=== PATIENT | male | born 1960 | race Caucasian/White ===

== ENCOUNTER → 2017-01-21 | Outpatient (CLI) | payer BC ==
[~2017-01-21] MED LIST: CETI10TA84 PO; IBUP-1050 PO; SNG10 PO; SYMIN160 INH
== END | disposition home or self-care (01) ==
LOC: C.RDSM 10:44
PROVIDERS: ATTEND Family Medicine
DX: M25.561 Pain in right knee (principal)

== ENCOUNTER → 2017-01-28 | Outpatient (CLI) | payer BC ==
--- NOTE | 2017-01-28 09:43 | DIAGNOSTIC IMAGING REPORT ---
ABDOMEN AND PELVIS CT WITHOUT CONTRAST CT DOSE: 1098.14 mGycm HISTORY: Pain ABD PAIN, S/P COLON SURGERY, HX DIVERTICULITIS TECHNIQUE: Multiaxial CT images of the abdomen and pelvis were performed without contrast. COMPARISON STUDY: 06/26/2016 FINDINGS: Lung bases remain clear. The small hypodensity in the right hepatic lobe is stable. Prior cholecystectomy. Pancreas and spleen are within normal limits. The adrenal glands are normal. Kidneys negative for calcification or hydronephrosis. Findings of an ostomy involving the mid transverse colonic region are again noted. This shows no evidence for obstructive change. There is a mid sigmoid anastomosis unchanged as well. There is no evidence for abscess collection or obstruction. There is no significant bowel wall thickening within limitations of an unenhanced scan. IMPRESSION: Stable postoperative change . No acute process. No evidence for obstructive change, mass, or collection. Electronically signed by: Sourav Olivares M.D. 01/28/2017 9:41 AM Dictated Date/Time: 01/28/2017 9:32 AM
== END | disposition home or self-care (01) ==
LOC: C.CTS 09:14
PROVIDERS: ATTEND Colon & Rectal Surgery
DX: Z87.19 Personal history of other diseases of the digestive system (principal); Z90.49 Acquired absence of other specified parts of digestive tract; R10.9 Unspecified abdominal pain

== ENCOUNTER 2019-02-15 17:59 | Inpatient (IN) ==
--- OUTSIDE RECORDS SUMMARY | 2019-02-15 18:03 | External Medical Summary | Continuity of Care Document ---
:1960 Author Name Stella Kimble, Provider Address Unavailable Unavailable , Care Team Providers Name Role Phone CharleyG Shyanne, Provider Unavailable [email or web address] [email or web address] Lopez M.D. Unavailable [email or web address] Case Chris KIRAN Unavailable [email or web address] Milagros HARTMAN Unavailable Unavailable Unavailable Unavailable Unavailable Problems Diverticulitis of colon (562.11) (K57.32) Open wound of face (873.40) (S01.80XA) Cough (786.2) (R05) Allergic rhinitis due to cats (477.2) (J30.81) Allergic rhinitis due to dust (477.8) (J30.89) Allergic rhinitis due to pollen (477.0) (J30.1) Chronic sinusitis (473.9) (J32.9) Extrinsic asthma (493.00) (J45.909) Diverticulosis (562.10) (K57.90) Allergies and Adverse Reactions Augmentin TABS (Allergy) Reaction: Nause a Vicodin HP TABS (Allergy) Medications ProAir HFA 108 (90 Base) MCG/ACT Inhalat ion Aerosol Solution; INHALE 1 TO 2 PUFFS EVERY 4 TO 6 HOURS NEEDED. Shyanne Pagan Start: 20-Jul-2011 Quantity: 1 Refills: 5 Suprep Bowel Prep Kit 17.5-3.13-1.6 GM/1 77ML Oral Solution; DILUTE CONTENTS AND USE DIRECTED FOR BOWEL PREP CaseDO Travon Start: 27-Mar-2016 Quantity: 1 177 ML Bottle (2 Bot tles) Refills: 0 Montelukast Sodium 10 MG Oral Tablet; TAKE 1 TABLET AT BEDTIME. Shyanne Pagan Start: 19-Aug-2011 Quantity: 90 Refills: 3 Symbicort 160-4.5 MCG/ACT Inhalation Aer osol; INHALE 2 PUFFS Twice daily PRN asthmatic exacerbation Shyanne Pagan Start: 05-Aug-2011 Quantity: 1 10.2 GM Inhaler Refills: 11 Cetirizine HCl - 10 MG Oral Tablet; TAKE 1 TABLET MARY Y NEEDED. Shyanne Pagan Quantity: 90 Refills: 3 Procedures History of Spinal Diskectomy Lumbar Stat us: Completed History of Sinus Surgery Status: Complet ed History of Cholecystectomy Laparoscopic Status: Completed History of Blepharoplasty Upper Lid W/ Excessive Skin Status: Completed Immunizations Immunizations not documented Family History Father Family history of Leukemia (V16.6) Status: Active Brother Family history of Type 2 Diabetes Mellitus Status: Active Family history of Hypertension (V17.49) Status: Active Social History - Smoking Status Never smoker Plan of Treatment Planned Observations Planned Goals not documented Results No Known Results Results not documented
[2019-02-15] MEDS ORDERED: SODIUM CHLORIDE 0.9% 1000ML 1,000 ML IV SCH (18:15)
[2019-02-15 18:33] LABS: Basophils # (auto) 0.07 K/uL (0-0.2); Basophils % (auto) 0.9 %; Eosinophils # (auto) 0.19 K/uL (0-0.5); Eosinophils % (auto) 2.5 %; Hematocrit (blood only) 44.1 % (42-52); Hemoglobin 15.7 g/dL (14.0-18.0); Immature Granulocytes # (auto) 0.02 K/uL (0.00-0.02); Immature Granulocytes % (auto) 0.3 %; Lymphocytes # (auto) 1.55 K/uL (1.2-3.4); Lymphocytes % (auto) 20.8 %; Mean Corpuscular Hgb Conc 35.6 g/dL (32-36); Mean Corpuscular Volume 90.2 fL (80-100); Monocytes # (auto) 0.63 K/uL (0.11-0.59); Monocytes % (auto) 8.4 %; Neutrophils % (auto) 67.1 %; Platelet Count 220 K/uL (130-400); RDW Coefficient of Variation 13.4 % (11.5-14.5); RDW Standard Deviation 44.5 fL (36.4-46.3); Red Blood Count 4.89 M/uL (4.7-6.1); White Blood Count 7.46 K/uL (4.8-10.8)
[2019-02-15] MEDS ORDERED: OPTIRAY 320 125ml IV PRN (18:35)
--- NOTE | 2019-02-15 18:38 | CT Scan Report ---
CT OF THE HEAD WITHOUT CONTRAST CLINICAL HISTORY: Stroke evaluation. Right-sided weakness. COMPARISON STUDY: No previous studies for comparison. CT DOSE: 638.56 mGycm TECHNIQUE: Helical axial images of the head were obtained without IV contrast. Automated exposure con trol was utilized for the study. A dose lowering technique was utilized adhering to the principles o f ALARA. FINDINGS: No acute intracranial hemorrhage, midline shift or mass effect is present. Ventricular syst em is normal. Basilar cisterns are patent. There are no extra-axial collections. [place]-white different iation is maintained. There are no findings to suggest acute dural sinus thrombosis or acute territor ial infarct. There are no significant calvarial abnormalities. IMPRESSION: No acute intracranial findings. Electronically signed by: Arnol Flores M.D. 02/15/2019 6:36 PM
[2019-02-15 18:41] LABS: iSTAT Creatinine 1.1 mg/dl (0.6-1.3); iSTAT Hemoglobin 15.3 g/dl (14.0-18.0); iSTAT Ionized Calcium 1.11 mmol/l (1.12-1.32); iSTAT Potassium 4.1 mEq/L (3.3-5.0)
[2019-02-15 18:43] LABS: Partial Thromboplastin Time 28.1 Seconds (21.0-31.0); Prothrombin Time 10.3 Seconds (9.0-12.0)
[2019-02-15 18:49] LABS: Alanine Aminotransferase 44 U/L (12-78); Albumin Level 3.6 gm/dl (3.4-5.0); Aspartate Aminotransferase 34 U/L (15-37); BUN Creatinine Ratio 16.9 (10-20); Blood Urea Nitrogen 18 mg/dl (7-18); Calcium 8.6 mg/dl (8.5-10.1); Carbon Dioxide 27 mmol/L (21-32); Chloride 109 mmol/L (98-107); Est GFR (African American) 92.6; Est GFR (Non-African American) 79.9; Glucose 91 mg/dl (70-99); Magnesium 2.3 mg/dl (1.8-2.4); Potassium 4.1 mmol/L (3.5-5.1); Sodium 141 mmol/L (136-145)
--- NOTE | 2019-02-15 18:50 | CT Scan Report ---
HEAD & NECK CTA HISTORY: right face, arm numbness TECHNIQUE: Multiaxial CT images of the head were performed following the intravenous administration o f contrast to evaluate the major cerebral vessels. Multiaxial CT images of the neck were also perform ed following the intravenous administration of contrast to evaluate the major cervical vessels. Maxim um intensity projection images were also obtained. A dose lowering technique was utilized adhering to the principles of ALARA. COMPARISON: Head CT 02/15/2019. FINDINGS: There is no mass, hematoma, midline shift, or acute infarct. Visualized intracranial internal carotid arteries, distal vertebral arteries, and basilar artery are widely patent. There is no significant s tenosis, occlusion, or aneurysm seen within the bilateral ACAs, MCAs, or malt house supervisor. The major dural venous sinuses are patent. The aortic arch and proximal great vessels are widely patent. There is no significant stenosis, occ lusion, or dissection identified within the bilateral common carotid, internal carotid, or vertebral arteries. Patchy ground glass densities and interlobular septal thickening within the lung apices fav ors mild pulmonary edema. A 7 mm right thyroid nodule is noted. IMPRESSION: 1. No significant stenosis, occlusion, or aneurysm within the [place]. 2. No significant stenosis, occlusion, or dissection identified within the carotid or vertebral arter ies. 3. Mild pulmonary edema. Electronically signed by: Elvis Yu M.D. 02/15/2019 6:49 PM
--- NOTE | 2019-02-15 18:50 | CT Scan Report ---
HEAD & NECK CTA HISTORY: right face, arm numbness TECHNIQUE: Multiaxial CT images of the head were performed following the intravenous administration o f contrast to evaluate the major cerebral vessels. Multiaxial CT images of the neck were also perform ed following the intravenous administration of contrast to evaluate the major cervical vessels. Maxim um intensity projection images were also obtained. A dose lowering technique was utilized adhering to the principles of ALARA. COMPARISON: Head CT 02/15/2019. FINDINGS: There is no mass, hematoma, midline shift, or acute infarct. Visualized intracranial internal carotid arteries, distal vertebral arteries, and basilar artery are widely patent. There is no significant s tenosis, occlusion, or aneurysm seen within the bilateral ACAs, MCAs, or technical instructor. The major dural venous sinuses are patent. The aortic arch and proximal great vessels are widely patent. There is no significant stenosis, occ lusion, or dissection identified within the bilateral common carotid, internal carotid, or vertebral arteries. Patchy ground glass densities and interlobular septal thickening within the lung apices fav ors mild pulmonary edema. A 7 mm right thyroid nodule is noted. IMPRESSION: 1. No significant stenosis, occlusion, or aneurysm within the [place]. 2. No significant stenosis, occlusion, or dissection identified within the carotid or vertebral arter ies. 3. Mild pulmonary edema. Electronically signed by: Elvis Yu M.D. 02/15/2019 6:49 PM
[2019-02-15 18:54] LABS: Albumin Globulin Ratio 0.9 (0.9-2); Alkaline Phosphatase 67 U/L (45-117); Bilirubin,Total 0.4 mg/dl (0.2-1); Globulin 3.9 gm/dl (2.5-4.0); Total Protein 7.5 gm/dl (6.4-8.2); Troponin I < 0.015 ng/ml (0-0.045)
[2019-02-15] MEDS ORDERED: ASPIRIN CHEW 324 MG PO STA (19:22)
--- NOTE | 2019-02-15 19:25 | XRay Report ---
XR chest 1V portable HISTORY: Right-sided numbness. COMPARISON: Chest 01/31/2016. FINDINGS: No pneumothorax. No pleural effusions. The lungs are clear. The heart is top normal in size . IMPRESSION: No acute process. Electronically signed by: Elvis Yu M.D. 02/15/2019 7:24 PM
[2019-02-15 19:51] LABS: Appearance Urine Cloudy (Clear); Bacteria Urine Automated Negative (Negative); Bilirubin Urine Negative (Negative); Blood Urine Negative (Negative); Cast Urine Automated 0 /lpf (0-5); Color Urine Yellow; Epithelial Cell Urine Auto 0-5 /lpf (0-5); Glucose Urine UA Negative (Negative); Ketones Urine Negative (Negative); Leukocyte Esterase Urine Negative (Negative); Nitrite Urine Negative (Negative); Protein Urine Negative (Negative); RBC Urine Automated 0-4 /hpf (0-4); Specific Gravity Urine 1.037 (1.000-1.030); Urobilinogen Urine Negative (Negative); WBC Urine Automated 0 /hpf (0-5); pH Urine 7.5 (4.5-7.5)
--- NOTE | 2019-02-15 20:34 | History & Physical Report ---
Date of Service February 15, 2019 Assessment & Plan (1) Stroke-like symptom: 58 yo male with no significant PMH presents with stroke-like symptoms. Symptoms included dysarthria, right facial droop, right facial numbness, right arm numbness. He states that the symptoms began today at 4:45 while at physical therapy. He describes laying on his right side and states that he began to feel very poor. At that moment, his words became slurred and he felt changes of sensation in his right arm and right face. The symptoms were witnessed by the therapist and states that they lasted 30 seconds to a minute. On arrival to the ED, speech and facial droop had resolved, but he still expressed tingling of right face. He denies visual, gait, or other focal neuro deficits. No PMH of CAD, HTN, HLD, DM or smoking. His mother had a history of TIA and CVA. Stroke-like symptoms, TIA - Considering no significant risk factor, but positive family history will order hypercoagulable panel - Neruology consulted - CTA neck and head negative - Ordered lipid panel, HgA1C - Ordered MRI - Aspirin added Sciatic Sx - Continue gabapentin 400 mg TID Asthma - Continue symbicort, montelukast, albuterol DVT ppx - SCD's Diet - Heart healthy Code -Full code (2) Right facial numbness: (3) Dysarthria: (4) Right arm numbness: (5) Asthma: (6) History of diverticulitis: (7) History of bowel resection: History of Present Illness Primary Care Provider: Chavez Morrison MD 58 yo male with no significant PMH presents with stroke-like symptoms. Symptoms included dysarthria, right facial droop, right facial numbness, right arm numbness. He states that the symptoms began today at 4:45 while at physical therapy. He describes laying on his right side and states that he began to feel very poor. At that moment, his words became slurred and he felt changes of sensation in his right arm and right face. The symptoms were witnessed by the therapist and states that they lasted 30 seconds to a minute. On arrival to the ED, speech and facial droop had resolved, but he still expressed sensation issues of the face. He denies visual, gait, or other focal neuro deficits. No PMH of CAD, HTN, HLD, DM or smoking. His mother had a history of TIA and CVA. Review of sx; Const; no fevers, no chills, no night sweats HEENT; denies sore throat, describes having a headache, denies runny nose Chest; denies chest pain, denies palpitations, denies SOB and lower extremity swelling Abdomen; denies ab pain, n/v/d Allergies Allergy/AdvReac Type Severity Reaction Status Date / Time amoxicillin Allergy Intermediate RASH,TOLERATED Verified 02/15/19 19:48 ZOSYN 01/22/16 ADM. clavulanic acid Allergy Intermediate RASH Verified 02/15/19 19:48 hydrocodone Allergy Mild DIZZY, Verified 02/15/19 19:48 NAUSEA Home Medications Home Medications Medication Instructions Recorded Confirmed Type Zyrtec 10 mg PO QAM 07/19/18 02/15/19 History calcium carbonate-vitamin D3 1 tab PO BID 07/19/18 02/15/19 History [Calcium 500 + D] ibuprofen [Advil] 600 mg PO QID PRN 07/19/18 02/15/19 History Symbicort 2 puff INHALATION BID 02/15/19 02/15/19 History albuterol sulfate 2 puff INHALATION QID PRN 02/15/19 02/15/19 History gabapentin [Neurontin] 400 mg PO TID 02/15/19 02/15/19 History montelukast [Singulair] 10 mg PO HS 02/15/19 02/15/19 History aspirin 81 mg PO DAILY #30 tab 02/16/19 Rx Past Med/Surg History Medical History Asthma Diverticulitis Environmental allergies IBS (irritable bowel syndrome) Surgical History History of bowel resection WITH COLOSTOMY/REVERSAL History of cholecystectomy History of colonoscopy History of colostomy reversal History of discectomy LUMBAR History of endoscopic sinus surgery History of tooth extraction Strabismus REPAIRED Family History Brother Family history of diabetes mellitus Other TIA (transient ischemic attack) Social History Preferred Language: Spanish Communication Ability: Effective Rate Reviewer Required: No Beliefs That Will Affect Care: None marital status: Current Living Situation: Spouse Other Information That Helps Us Care for You: No Feels Safe at Home: Yes Safety Concerns: Feels Safe At This Time Smoking Status: Never smoker Second Hand Exposure: No Hx Alcohol Use: No Hx Substance Use: No Review of Systems Review of Systems: All systems reviewed & are unremarkable except as noted in HPI & below Physical Exam Constitutional: WD/WN, vitals as above Eyes: PERRL, conjunctivae normal, anicteric sclerae ENMT: external ear and nose normal, oropharynx normal Neck: trachea midline, no thyromegaly Respiratory: normal respiratory effort, lungs clear to auscultation Cardiovascular: RRR, no murmur, no edema Gastrointestinal (Abdomen): normal bowel sounds, soft, nontender, no hepatosplenomegaly Musculoskeletal: no cyanosis or clubbing, extremities motor strength 5/5 Skin: no rashes, warm and dry Neurologic: PERRL, EOMI, accommodation nl, no face palsy, no dysarthria CN's II-XI intact bilaterally and awake; not obtunded Speech / Cognition: no expressive aphasia Psychiatric: A+Ox3, euthymic affect Results & Data Vital Signs (Past 12 Hours) Vital Signs Temp Pulse Resp BP Pulse Ox 02/15/19 20:01 66 19 108/71 95 02/15/19 19:39 63 25 H 129/86 96 02/15/19 19:01 69 26 H 136/85 94 02/15/19 18:56 67 23 131/78 94 02/15/19 18:07 36.9 C 68 20 151/97 H 96 Code Status & VTE Plan Code Status full VTE Prophylaxis Plan VTE Prophylaxis will be ordered: Yes Supervising Physician Co-Signing Physician Notes Attending addendum: I have physically seen this patient, have supervised the medical residents activities, and agree with the H&P unless as otherwise noted. Assessment and Plan: TIA/strokelike symptoms- The patient will be admitted to telemetry for serial cardiac enzymes, serial E KG's, cardiac rhythm monitoring and a 2-D echocardiogram with Dopplers.. CT head negative. CTA head and neck negative. Hypercoagulable work-up. Continue aspirin 81 mg daily. MRI brain without contrast. Ischemic stroke without TPA protocol order set. Consult neurology. Remainder of orders notations as noted. Resident Activity Tracking Resident Involvement: Resident Care Provided Care Provided: Adult [facility]
[2019-02-15] MEDS ORDERED: PHARMACIST DISCHARGE MED REC CONSULT PRN (20:37)
[2019-02-15] MEDS ORDERED: ALBUTEROL HFA 8 GM INHALER INH PRN (20:43)
[2019-02-15] MEDS ORDERED: MONTELUKAST SODIUM 10 MG TABLET PO SCH (21:00)
--- NOTE | 2019-02-15 21:41 | XRay Report ---
ORBIT RADIOGRAPHS 3 VIEWS HISTORY: pre-MRI screening. COMPARISON: Orbits 07/01/2018. FINDINGS: There are no radiopaque foreign bodies identified within the orbits. IMPRESSION: No radiopaque foreign bodies identified within the orbits. Electronically signed by: Elvis Yu M.D. 02/15/2019 9:39 PM
[2019-02-15] MEDS ORDERED: GADOBUTROL 65ML VIAL IV PRN (22:05)
--- NOTE | 2019-02-15 22:27 | Magnetic Resonance Report ---
Brain MRI WITH AND WITHOUT CONTRAST HISTORY: Right-sided numbness. Difficulty speaking. CVA symtpoms TECHNIQUE: Multiplanar multisequence MRI of the brain was performed both before and after the intrave nous administration of contrast. COMPARISON STUDY: Head CT 02/15/2019. FINDINGS: There are no areas of restricted diffusion to suggest acute infarction. The midline structu res are intact. The paranasal sinuses are clear. The mastoid air cells are clear. The ventricles and sulci are within normal limits for age. There is no mass, hematoma, midline shift. The major vascular flow-voids at the skull base are well maintained. Postcontrast sequences show no areas of abnormal e nhancement. IMPRESSION: No acute intracranial abnormality. Electronically signed by: Elvis Yu M.D. 02/15/2019 10:26 PM
--- NOTE | 2019-02-15 22:44 | Emergency Department Note ---
Entered by Vy Loja acting as a scribe for ED Provider Note CHIEF COMPLAINT: Stroke symptoms. HISTORY OF PRESENT ILLNESS: The patient is a 58 year old male who presents to the Emergency Room with c omplaints of an episode of stoke symptoms. The patient's last known well time was 1700. He presents with his and physical therapist. The patient states that he was in physical therapy when he developed right arm numbness, right facial numbness, and difficulty talking. The patient describes his speech as garbled. Per physical therapist, he said that he didnt feel good and needed to relax. He notes that it lasted between 30 seconds to one minute. He reports that he still has some right arm numbness and a headache. The patient states that he has a family history of TIA. Pt denies LOC, , fevers, chills, diaphoresis, visual changes, neck pain, chest pain, breathing difficulties, nausea, vomiting, abdominal pain, back pain, melena, hematochezia, urinary symptoms, lymphadenopathy, rash, or other complaints. REVIEW OF SYSTEMS: See HPI for pertinent positives and negatives. A total of ten systems were reviewed and were otherwise negative. PMHx/PSHx: IBS, asthma, diverticulitis, discectomy, cholecystectomy, and bowel resection. SOCIAL HISTORY: Patient lives at home. PHYSICAL EXAM: GENERAL: Awake, alert, well-appearing, in no distress HENT: Normocephalic, atraumatic. Oropharynx unremarkable. EYES: PERRL. Normal conjunctiva. Sclera non-icteric. NECK: Inspection normal. Non-tender. Supple. No nuchal rigidity. FROM. No masses. RESPIRATORY: Clear to auscultation. No wheezes. No rales. Normal respiratory effort. CARDIAC: Normal rate. Normal rhythm. No murmurs. No rubs. Extremities warm and well perfused. Pulses equal. No JVD. GI: Soft, non-distended. No tenderness to palpation. No rebound or guarding. No masses. RECTAL: Deferred. MUSCULOSKELETAL: Atraumatic. Chest examination reveals no tenderness. The back is symmetrical on inspection without obvious abnormality. There is no CVA tenderness to palpation. No joint edema. LOWER EXTREMITIES: Calves are equal size bilaterally and non-tender. No edema. No discoloration. NEURO: Normal sensorium. Right face and right arm subjective numbness, otherwise no sensory or motor deficits noted. No drift, speech is clear. Cranial nerves II through XII intact otherwise. No problem SKIN: No rash or jaundice noted. EMERGENCY DEPARTMENT COURSE: 1804: Past medical records reviewed. The patient was evaluated in room A11B, and a complete history and physical examination were performed. 1813: Dr. Gaby Cordero [facility] was paged. She is going to log on. 1834: I reviewed the patient's scans with Dr. Flores - Radiology. He has a negative head CT. 1841: I have re-evaluated the patient. He is stable. I updated him on the results of the CT scan and he was brought back to the ER for TeleStroke evaluation. 1899: I reviewed the patient's case with Dr. Gaby Cordero [facility] - [facility] . She states that there is no need for TPA and he needs a medical admission for stroke work up. 1901: I updated the patient on the results of his scans. 1912: I reviewed the patient's case with Dr. Loc Cortes Hospitalist - [facility]. He will evaluate the patient for further management. MEDICAL DECISION MAKING: Nursing notes reviewed and agree them. Additional history obtained from his family as well as the physician web marketing assistant at orthopedics who saw him at the time of event. The patient's history was concerning for weakness. Differential diagnosis: Etiologies such as TIA/CVA, metabolic, infection, hypo/hyperglycemia, electrolyte abnormalities, cardiac sources, intracerebral event, toxicologic, neurologic, as well as others were entertained. Physical examination: As above. ER treatment provided: IV [place] hydration Monitoring Oral aspirin On reassessment the patient felt better. Diagnostics interpretation by me: ECG: Normal sinus The labs revealed an unremarkable CBC and chemistry panel. Imaging studies: CT scan of the head and CT under [place] of the head and neck were performed. No acute findings noted. Consultation: Consultation was placed with Al[facility] salvadorstroke, Dr. Cordero. The case was discussed. She evaluated the patient via the tele-stroke unit and felt that the patient was doing exceptionally well at this time. She was concerned about a neurologic event. TPA was not recommended. Aspirin and monitoring was rec ommended. The patient had this performed. A consultation was placed with the hospitalist. The case was discussed and diagnostics were reviewed. The patient was evaluated in the ER for further treatment. IMPRESSION: Stroke like symptoms, right face numbness, right arm numbness, dysarthria. PLAN: Admitted. The scribe's documentation has been prepared under my direction and personally reviewed by me in its entirety. I confirm that the note above accurately reflects all work, treatment, procedures, and medical decision making performed by me. Impression & Plan Stroke-like symptom, Right facial numbness, Right arm numbness, Dysarthria Past Med/Surg History Medical History Asthma Diverticulitis Environmental allergies IBS (irritable bowel syndrome) Surgical History History of bowel resection WITH COLOSTOMY/REVERSAL History of cholecystectomy History of colonoscopy History of colostomy reversal History of discectomy LUMBAR History of endoscopic sinus surgery History of tooth extraction Strabismus REPAIRED Family History Brother Family history of diabetes mellitus Other TIA (transient ischemic attack) Social History Preferred Language: Portuguese Communication Ability: Effective Workers' Compensation Claims Supervisor Required: No Beliefs That Will Affect Care: None Current Living Situation: Spouse Other Information That Helps Us Care for You: No Feels Safe at Home: Yes Safety Concerns: Feels Safe At This Time Smoking Status: Never smoker Second Hand Exposure: No Hx Alcohol Use: No Hx Substance Use: No Results & Data Vital Signs Vital Signs - 24 hr 02/15/19 18:07 02/15/19 18:56 02/15/19 19:01 Temperature 36.9 C Temperature Source Oral Sepsis Recent Fever Within 48 Hours No Sepsis Action Taken by Nursing No Action Required Pulse Rate 68 67 69 Pulse Rate from SpO2 Sensor 67 68 Respiratory Rate 20 23 26 H Blood Pressure 151/97 H 131/78 136/85 Blood Pressure Mean 115 95 102 Pulse Oximetry 96 94 94 Oxygen Delivery Method Room Air Room Air 02/15/19 19:39 Temperature Temperature Source Sepsis Recent Fever Within 48 Hours Sepsis Action Taken by Nursing Pulse Rate 63 Pulse Rate from SpO2 Sensor 63 Respiratory Rate 25 H Blood Pressure 129/86 Blood Pressure Mean 100 Pulse Oximetry 96 Oxygen Delivery Method Room Air Home Medications Current Medication List: was personally reviewed by me Laboratory Data Attestation: I reviewed the patient's lab results. Result diagrams: 02/15/19 18:22 02/15/19 18:22 Lab Results 02/15/19 02/15/19 02/15/19 Range/Units 17:41 18:22 18:22 WBC 7.46 (4.8-10.8) K/uL RBC 4.89 (4.7-6.1) M/uL Hgb 15.7 (14.0-18.0) g/dL POC Hgb (14.0-18.0) g/dl Hct 44.1 (42-52) % POC Hct (42-52) % MCV 90.2 (80-100) fL MCH 32.1 (25-34) pg MCHC 35.6 (32-36) g/dL RDW Std Deviation 44.5 (36.4-46.3) fL RDW Coeff of Violeta 13.4 (11.5-14.5) % Plt Count 220 (130-400) K/uL MPV 9.0 (7.4-10.4) fL Immature Gran % (Auto) 0.3 % Neut % (Auto) 67.1 % Lymph % (Auto) 20.8 % [place] % (Auto) 8.4 % Eos % (Auto) 2.5 % Baso % (Auto) 0.9 % Immature Gran # (Auto) 0.02 (0.00-0.02) K/uL Neut # (Auto) 5.00 (1.4-6.5) K/uL Lymph # (Auto) 1.55 (1.2-3.4) K/uL [place] # (Auto) 0.63 H (0.11-0.59) K/uL Eos # (Auto) 0.19 (0-0.5) K/uL Baso # (Auto) 0.07 (0-0.2) K/uL PT 10.3 (9.0-12.0) Seconds INR 1.0 (0.9-1.1) APTT 28.1 (21.0-31.0) Seconds PTT Ratio 1.0 POC Sodium (135-144) mEq/L Sodium (136-145) mmol/L POC Potassium (3.3-5.0) mEq/L Potassium (3.5-5.1) mmol/L POC Chloride (101-112) mEq/L Chloride (98-107) mmol/L Carbon Dioxide (21-32) mmol/L POC Total CO2 (24-31) mEq/l Anion Gap (3-11) POC Anion Gap (16-25) mmol/L POC BUN (7-18) mg/dl BUN (7-18) mg/dl Creatinine (0.6-1.4) mg/dl POC Creatinine (0.6-1.3) mg/dl Est Cr Clr Drug Dosing ml/min Est GFR ( Amer) Est GFR (Non-Af Amer) BUN/Creatinine Ratio (10-20) Glucose (70-99) mg/dl POC Glucose (other) (70-99) mg/dl Calcium (8.5-10.1) mg/dl POC Ioniz Calcium Henry (1.12-1.32) mmol/l Magnesium (1.8-2.4) mg/dl Total Bilirubin (0.2-1) mg/dl AST (15-37) U/L ALT (12-78) U/L Alkaline Phosphatase (45-117) U/L Troponin I (0-0.045) ng/ml Total Protein (6.4-8.2) gm/dl Albumin (3.4-5.0) gm/dl Globulin (2.5-4.0) gm/dl Albumin/Globulin Ratio (0.9-2) Urine Color Urine Appearance (Clear) Urine pH (4.5-7.5) Ur Specific [place] (1.000-1.030) Urine Protein (Negative) Urine Glucose (UA) (Negative) Urine Ketones (Negative) Urine Blood (Negative) Urine Nitrite (Negative) Urine Bilirubin (Negative) Urine Urobilinogen (Negative) Ur Leukocyte Esterase (Negative) Urine WBC (Auto) (0-5) /hpf Urine RBC (Auto) (0-4) /hpf U Hyaline Cast (Auto) (0-5) /lpf U Epithel Cells (Auto) (0-5) /lpf Urine Bacteria (Auto) (Negative) Hepatitis C Ab Screen Neg (Neg) Blood Type Antibody Screen 02/15/19 02/15/19 02/15/19 Range/Units 18:22 18:22 18:29 WBC (4.8-10.8) K/uL RBC (4.7-6.1) M/uL Hgb (14.0-18.0) g/dL POC Hgb 15.3 (14.0-18.0) g/dl Hct (42-52) % POC Hct 45 (42-52) % MCV (80-100) fL MCH (25-34) pg MCHC (32-36) g/dL RDW Std Deviation (36.4-46.3) fL RDW Coeff of Violeta (11.5-14.5) % Plt Count (130-400) K/uL MPV (7.4-10.4) fL Immature Gran % (Auto) % Neut % (Auto) % Lymph % (Auto) % [place] % (Auto) % Eos % (Auto) % Baso % (Auto) % Immature Gran # (Auto) (0.00-0.02) K/uL Neut # (Auto) (1.4-6.5) K/uL Lymph # (Auto) (1.2-3.4) K/uL [place] # (Auto) (0.11-0.59) K/uL Eos # (Auto) (0-0.5) K/uL Baso # (Auto) (0-0.2) K/uL PT (9.0-12.0) Seconds INR (0.9-1.1) APTT (21.0-31.0) Seconds PTT Ratio POC Sodium 142 (135-144) mEq/L Sodium 141 (136-145) mmol/L POC Potassium 4.1 (3.3-5.0) mEq/L Potassium 4.1 (3.5-5.1) mmol/L POC Chloride 103 (101-112) mEq/L Chloride 109 H (98-107) mmol/L Carbon Dioxide 27 (21-32) mmol/L POC Total CO2 26 (24-31) mEq/l Anion Gap 5.0 (3-11) POC Anion Gap 18.0 (16-25) mmol/L POC BUN 19 H (7-18) mg/dl BUN 18 (7-18) mg/dl Creatinine 1.04 (0.6-1.4) mg/dl POC Creatinine 1.1 (0.6-1.3) mg/dl Est Cr Clr Drug Dosing 111.0 ml/min Est GFR ( Amer) 92.6 Est GFR (Non-Af Amer) 79.9 BUN/Creatinine Ratio 16.9 (10-20) Glucose 91 (70-99) mg/dl POC Glucose (other) 92 (70-99) mg/dl Calcium 8.6 (8.5-10.1) mg/dl POC Ioniz Calcium Henry 1.11 L (1.12-1.32) mmol/l Magnesium 2.3 (1.8-2.4) mg/dl Total Bilirubin 0.4 (0.2-1) mg/dl AST 34 (15-37) U/L ALT 44 (12-78) U/L Alkaline Phosphatase 67 (45-117) U/L Troponin I < 0.015 (0-0.045) ng/ml Total Protein 7.5 (6.4-8.2) gm/dl Albumin 3.6 (3.4-5.0) gm/dl Globulin 3.9 (2.5-4.0) gm/dl Albumin/Globulin Ratio 0.9 (0.9-2) Urine Color Urine Appearance (Clear) Urine pH (4.5-7.5) Ur Specific [place] (1.000-1.030) Urine Protein (Negative) Urine Glucose (UA) (Negative) Urine Ketones (Negative) Urine Blood (Negative) Urine Nitrite (Negative) Urine Bilirubin (Negative) Urine Urobilinogen (Negative) Ur Leukocyte Esterase (Negative) Urine WBC (Auto) (0-5) /hpf Urine RBC (Auto) (0-4) /hpf U Hyaline Cast (Auto) (0-5) /lpf U Epithel Cells (Auto) (0-5) /lpf Urine Bacteria (Auto) (Negative) Hepatitis C Ab Screen (Neg) Blood Type A Negative Antibody Screen NEGATIVE 02/15/19 Range/Units 19:40 WBC (4.8-10.8) K/uL RBC (4.7-6.1) M/uL Hgb (14.0-18.0) g/dL POC Hgb (14.0-18.0) g/dl Hct (42-52) % POC Hct (42-52) % MCV (80-100) fL MCH (25-34) pg MCHC (32-36) g/dL RDW Std Deviation (36.4-46.3) fL RDW Coeff of Violeta (11.5-14.5) % Plt Count (130-400) K/uL MPV (7.4-10.4) fL Immature Gran % (Auto) % Neut % (Auto) % Lymph % (Auto) % [place] % (Auto) % Eos % (Auto) % Baso % (Auto) % Immature Gran # (Auto) (0.00-0.02) K/uL Neut # (Auto) (1.4-6.5) K/uL Lymph # (Auto) (1.2-3.4) K/uL [place] # (Auto) (0.11-0.59) K/uL Eos # (Auto) (0-0.5) K/uL Baso # (Auto) (0-0.2) K/uL PT (9.0-12.0) Seconds INR (0.9-1.1) APTT (21.0-31.0) Seconds PTT Ratio POC Sodium (135-144) mEq/L Sodium (136-145) mmol/L POC Potassium (3.3-5.0) mEq/L Potassium (3.5-5.1) mmol/L POC Chloride (101-112) mEq/L Chloride (98-107) mmol/L Carbon Dioxide (21-32) mmol/L POC Total CO2 (24-31) mEq/l Anion Gap (3-11) POC Anion Gap (16-25) mmol/L POC BUN (7-18) mg/dl BUN (7-18) mg/dl Creatinine (0.6-1.4) mg/dl POC Creatinine (0.6-1.3) mg/dl Est Cr Clr Drug Dosing ml/min Est GFR ( Amer) Est GFR (Non-Af Amer) BUN/Creatinine Ratio (10-20) Glucose (70-99) mg/dl POC Glucose (other) (70-99) mg/dl Calcium (8.5-10.1) mg/dl POC Ioniz Calcium Henry (1.12-1.32) mmol/l Magnesium (1.8-2.4) mg/dl Total Bilirubin (0.2-1) mg/dl AST (15-37) U/L ALT (12-78) U/L Alkaline Phosphatase (45-117) U/L Troponin I (0-0.045) ng/ml Total Protein (6.4-8.2) gm/dl Albumin (3.4-5.0) gm/dl Globulin (2.5-4.0) gm/dl Albumin/Globulin Ratio (0.9-2) Urine Color Yellow Urine Appearance Cloudy A (Clear) Urine pH 7.5 (4.5-7.5) Ur Specific [place] 1.037 H (1.000-1.030) Urine Protein Negative (Negative) Urine Glucose (UA) Negative (Negative) Urine Ketones Negative (Negative) Urine Blood Negative (Negative) Urine Nitrite Negative (Negative) Urine Bilirubin Negative (Negative) Urine Urobilinogen Negative (Negative) Ur Leukocyte Esterase Negative (Negative) Urine WBC (Auto) 0 (0-5) /hpf Urine RBC (Auto) 0-4 (0-4) /hpf U Hyaline Cast (Auto) 0 (0-5) /lpf U Epithel Cells (Auto) 0-5 (0-5) /lpf Urine Bacteria (Auto) Negative (Negative) Hepatitis C Ab Screen (Neg) Blood Type Antibody Screen Administered Medications Gadobutrol (Gadavist 65ml) 13 ml IV ONCE PRN PRN Reason: Interaction Checking Stop: 02/19/19 22:04 Last Admin: 02/15/19 22:05 Dose: 13 ml Documented by: [id number] Discontinued Medications Aspirin (Aspirin) 324 mg PO NOW STA Stop: 02/15/19 19:23 Last Admin: 02/15/19 19:37 Dose: 324 mg Documented by: [id number] Sodium Chloride (Nss 1000ml) 1,000 mls @ 50 mls/hr IV .Q20H BHAVESH Stop: 03/17/19 18:14 Last Infusion: 02/15/19 22:18 Dose: 0 mls/hr Documented by: [id number] Admin: 02/15/19 18:59 Dose: 50 mls/hr Documented by: [id number] Ioversol (Optiray 320 125ml) 115 ml IV ONCE PRN PRN Reason: Interaction Checking Stop: 02/19/19 18:34 Last Admin: 02/15/19 18:35 Dose: 115 ml Documented by: [id number] Imaging Data Radiologist's Impression: Radiology results as stated below per my review and the radiologist's interpretation: XR chest 1V portable HISTORY: Right-sided numbness. COMPARISON: Chest 01/31/2016. FINDINGS: No pneumothorax. No pleural effusions. The lungs are clear. The heart is top normal in size. IMPRESSION: No acute process. Electronically signed by: Elvis Yu M.D. 02/15/2019 7:24 PM Dictated: 02/15/191922 Transcribed: 02/15/191922 HEAD & NECK CTA HISTORY: right face, arm numbness TECHNIQUE: Multiaxial CT images of the head were performed following the intravenous administration of contrast to evaluate the major cerebral vessels. Multiaxial CT images of the neck were also performed following the intravenous administration of contrast to evaluate the major cervical vessels. Maximum intensity projection images were also obtained. A dose lowering technique was utilized adhering to the principles of ALARA. COMPARISON: Head CT 02/15/2019. FINDINGS: There is no mass, hematoma, midline shift, or acute infarct. Visualized intracranial internal carotid arteries, distal vertebral arteries, and basilar artery are widely patent. There is no significant stenosis, occlusion, or aneurysm seen within the bilateral ACAs, MCAs, or business education professor. The major dural venous sinuses are patent. The aortic arch and proximal great vessels are widely patent. There is no significant stenosis, occlusion, or dissection identified within the bilateral common carotid, internal carotid, or vertebral arteries. Patchy ground glass densities and interlobular septal thickening within the lung apices favors mild pulmonary edema. A 7 mm right thyroid nodule is noted. IMPRESSION: 1. No significant stenosis, occlusion, or aneurysm within the [place]. 2. No significant stenosis, occlusion, or dissection identified within the carotid or vertebral arteries. 3. Mild pulmonary edema. Electronically signed by: Elvis Yu M.D. 02/15/2019 6:49 PM Dictated: 02/15/191842 Transcribed: 02/15/191842 HEAD & NECK CTA HISTORY: right face, arm numbness TECHNIQUE: Multiaxial CT images of the head were performed following the intravenous administration of contrast to evaluate the major cerebral vessels. Multiaxial CT images of the neck were also performed following the intravenous administration of contrast to evaluate the major cervical vessels. Maximum intensity projection images were also obtained. A dose lowering technique was utilized adhering to the principles of ALARA. COMPARISON: Head CT 02/15/2019. FINDINGS: There is no mass, hematoma, midline shift, or acute infarct. Visualized intracranial internal carotid arteries, distal vertebral arteries, and basilar artery are widely patent. There is no significant stenosis, occlusion, or ane urysm seen within the bilateral ACAs, MCAs, or business education professor. The major dural venous sinuses are patent. The aortic arch and proximal great vessels are widely patent. There is no significant stenosis, occlusion, or dissection identified within the bilateral common carotid, internal carotid, or vertebral arteries. Patchy ground glass densities and interlobular septal thickening within the lung apices favors mild pulmonary edema. A 7 mm right thyroid nodule is noted. IMPRESSION: 1. No significant stenosis, occlusion, or aneurysm within the [place]. 2. No significant stenosis, occlusion, or dissection identified within the carotid or vertebral arteries. 3. Mild pulmonary edema. Electronically signed by: Elvis Yu M.D. 02/15/2019 6:49 PM Dictated: 02/15/191842 Transcribed: 02/15/191842 CT OF THE HEAD WITHOUT CONTRAST CLINICAL HISTORY: Stroke evaluation. Right-sided weakness. COMPARISON STUDY: No previous studies for comparison. CT DOSE: 638.56 mGycm TECHNIQUE: Helical axial images of the head were obtained without IV contrast. Automated exposure control was utilized for the study. A dose lowering technique was utilized adhering to the principles of ALARA. FINDINGS: No acute intracranial hemorrhage, midline shift or mass effect is present. Ventricular system is normal. Basilar cisterns are patent. There are no extra-axial collections. [place]-white differentiation is maintained. There are no findings to suggest acute dural sinus thrombosis or acute territorial infarct. There are no significant calvarial abnormalities. IMPRESSION: No acute intracranial findings. Electronically signed by: Arnol Flores M.D. 02/15/2019 6:36 PM Dictated: 02/15/191832 Transcribed: 02/15/191832 ECG Data Attestation: I personally reviewed and interpreted this ECG as follows: Indication: other (stroke symptoms) Rate (beats per minute): 69 Rhythm: normal sinus Findings: no PAC, no PVC, no ST depression and no ST elevation Blood Pressure Blood Pressure Findings: Normal blood pressure Discharge Plan Visit Data *Final* Discharge Date/Time: 02/15/19 20:19 Chief Complaint: Stroke/CVA Symptoms Stated Complaint: STROKE SX ED Provider: Kuldeep Crump Discharge Problem: Stroke-like symptom, Right facial numbness, Right arm numbness, Dysarthria Patient Disposition: Admitted As Inpatient Discharge Instructions Interventions: ED Discharge Assessment Last Done: 02/15/19 20:19 The scribe's documentation has been prepared under my direction and personally reviewed by me in its entirety. I confirm that the note above accurately reflects all work, treatment, procedures, and medical decision making performed by me.
[2019-02-15] MEDS: GABAPENTIN 400 MG CAP PO SCH (22:53)
[2019-02-15] MEDS: BUDESONIDE/FORMOTEROL FUMARATE 160/4.5 60 PUFFS/INHALER INH SCH (22:53)
[2019-02-16 06:07] LABS: Estimated Average Glucose 105 mg/dl; Hemoglobin A1C 5.3 % (4.5-5.6)
[2019-02-16 07:04] LABS: Basophils # (auto) 0.04 K/uL (0-0.2); Basophils % (auto) 0.7 %; Eosinophils % (auto) 3.7 %; Hematocrit (blood only) 43.3 % (42-52); Hemoglobin 15.2 g/dL (14.0-18.0); Immature Granulocytes # (auto) 0.01 K/uL (0.00-0.02); Immature Granulocytes % (auto) 0.2 %; Lymphocytes # (auto) 0.91 K/uL (1.2-3.4); Mean Corpuscular Hgb Conc 35.1 g/dL (32-36); Mean Platelet Volume 9.1 fL (7.4-10.4); Monocytes # (auto) 0.61 K/uL (0.11-0.59); Monocytes % (auto) 11.4 %; Neutrophils # (auto) 3.59 K/uL (1.4-6.5); Platelet Count 188 K/uL (130-400); RDW Coefficient of Variation 13.4 % (11.5-14.5); RDW Standard Deviation 44.1 fL (36.4-46.3); Red Blood Count 4.81 M/uL (4.7-6.1); White Blood Count 5.36 K/uL (4.8-10.8)
[2019-02-16 07:18] LABS: Partial Thromboplastin Ratio 1.1; Partial Thromboplastin Time 28.5 Seconds (21.0-31.0); Prothrombin Time 10.5 Seconds (9.0-12.0)
[2019-02-16 07:35] LABS: BUN Creatinine Ratio 18.3 (10-20); Calcium 8.3 mg/dl (8.5-10.1); Creatinine Clr Calc Pharmacy 119.6 ml/min; Potassium 3.8 mmol/L (3.5-5.1)
[2019-02-16] MEDS: BUDESONIDE/FORMOTEROL FUMARATE 160/4.5 60 PUFFS/INHALER INH SCH (08:25)
[2019-02-16] MEDS: GABAPENTIN 400 MG CAP PO SCH ×2 (08:25→13:38)
--- NOTE | 2019-02-16 09:42 | Neurology Consultation ---
Date of Consultation February 16, 2019 Assessment & Plan (1) TIA (transient ischemic attack): Suspected TIA localizing to the left MCA territory. No evidence of stroke or vascular occlusive disease on recently completed MRI and CT angiography. I would recommend a transthoracic echocardiogram with bubble study. I would also recommend starting aspirin 81 mg/day. Follow-up with results of hypercoagulable panel. If this patient were to have another TIA or strokelike episode would consider obtaining an outpatient 30-day cardiac event monitor. He does not appear to have any need for rehabilitation services at this time. Please contact me if I may be of further assistance. History of Present Illness Reason for Consultation: Stroke symptoms Requesting Physician: Curtis Castle MD Attending Physician: Jose A Galvez DO History of Present Illness The patient is a 58-year-old male with a chief complaint of numbness affecting the right arm and face with associated speech difficulty that began acutely yesterday at around 5 PM. He also complained of a low-grade headache at that time. The symptoms began while he was lying on his right-hand side participating in physical therapy for chronic low back pain/radiculopathy to the left leg. He has not experienced similar symptoms in the past and denies a history of significant neck pain. The majority of his symptoms resolved within about 1 minute although he did have some lingering numbness affecting the right side of the face and arm during his assessment in the emergency department. Currently, the patient indicates that his symptoms have completely resolved. The patient denies a past medical history of stroke or TIA. He does not appear to have a history of significant cardiovascular risk factors. He is a non- smoker. He denies a history of DVT or thromboembolic disease. Additional details as below. Allergies Allergy/AdvReac Type Severity Reaction Status Date / Time amoxicillin Allergy Intermediate RASH,TOLERATED Verified 02/15/19 19:48 ZOSYN 01/22/16 ADM. clavulanic acid Allergy Intermediate RASH Verified 02/15/19 19:48 hydrocodone Allergy Mild DIZZY, Verified 02/15/19 19:48 NAUSEA Home Medications Home Medications Medication Instructions Recorded Confirmed Type Zyrtec 10 mg PO QAM 07/19/18 02/15/19 History calcium carbonate-vitamin D3 1 tab PO BID 07/19/18 02/15/19 History [Calcium 500 + D] ibuprofen [Advil] 600 mg PO QID PRN 07/19/18 02/15/19 History albuterol sulfate 2 puff INHALATION QID PRN 02/15/19 02/15/19 History budesonide-formoterol [Symbicort] 2 puff INHALATION BID 02/15/19 02/15/19 History gabapentin [Neurontin] 400 mg PO TID 02/15/19 02/15/19 History montelukast [Singulair] 10 mg PO HS 02/15/19 02/15/19 History Patient History Medical History Asthma Diverticulitis Environmental allergies IBS (irritable bowel syndrome) Surgical History History of bowel resection WITH COLOSTOMY/REVERSAL History of cholecystectomy History of colonoscopy History of colostomy reversal History of discectomy LUMBAR History of endoscopic sinus surgery History of tooth extraction Strabismus REPAIRED Family History Brother Family history of diabetes mellitus Other TIA (transient ischemic attack) Social History Preferred Language: Brazilian Communication Ability: Effective Graduate Intern Required: No Beliefs That Will Affect Care: None Current Living Situation: Spouse Other Information That Helps Us Care for You: No Feels Safe at Home: Yes Safety Concerns: Feels Safe At This Time Smoking Status: Never smoker Second Hand Exposure: No Hx Alcohol Use: No Hx Substance Use: No Review of Systems Constitutional: no fever and no chills Eyes: no blind spots and no diplopia Ear, Nose, Mouth, Throat: no tinnitus and no hearing loss Respiratory: no cough and no dyspnea Cardiovascular: no chest pain and no palpitations Gastrointestinal: no nausea and no vomiting Genitourinary: no dysuria Musculoskeletal: + back pain; no myalgia Integumentary: no rash and no lesions Neurologic: as per Subjective / HPI Psychiatric: no depression and no anxiety Hematologic / Lymphatic: no easy bleeding and no easy bruising Physical Exam Physical Exam: The patient is a well-developed, well-nourished adult male. He is sitting up comfortably in the bedside chair. He is alert and fully oriente d. Recent and remote memory intact. Attention and concentration normal. Patient exhibits a normal spontaneous speech pattern. He is able to name objects and repeat phrases. He exhibits an age-appropriate fund of knowledge and normal comprehension of vocabulary. Visual garvey full to confrontation. Visual acuity normal. Pupils equal round react to light and accommodation. Eye movements normal. Facial sensation intact. There is no facial droop or weakness. Hearing intact. Palate elevates to midline. Shoulder shrug intact. Tongue protrudes to midline. Sensation intact to all modalities in all 4 limbs. Deep tendon reflexes are 1+ for the arms and legs bilaterally. Plantar responses downgoing bilaterally. There is no dysdiadochokinesia or dysmetria palnia-of-nxob or [id number] bilaterally. Ophthalmoscopic examination reveals normal-appearing optic disks and posterior segments. No papilledema or hemorrhages. Carotid pulses normal bilaterally, no bruits to auscultation. Gait and station normal. Patient exhibits normal muscle strength and tone for all 4 limbs. No atrophy. No abnormal movements observed. Results & Data Vital Signs (Past 12 Hours) Vital Signs Temp Pulse Pulse Resp BP Pulse Ox 02/16/19 07:25 36.6 C 64 20 130/84 95 02/16/19 07:15 58 L 02/16/19 04:26 36.6 C 64 20 112/66 94 02/16/19 00:25 62 02/15/19 23:45 36.3 C L 56 L 17 108/57 L 97 Laboratory Results Recent labs reviewed. WBC 7.46, hemoglobin 15.7, hematocrit 44.1, platelet count 220, sodium 142, potassium 4.1, BUN 18, creatinine 1.04, glucose [address] of the head completed yesterday was negative for hemorrhage or acute process. Images and report reviewed. A CTA of the head and neck were unremarkable. No evidence of stenosis, occlusion, or aneurysm. A brain MRI was negative for acute or subacute stroke. No significant parenchymal disease observed. Images and report reviewed. Electrocardiogram completed yesterday revealed a normal sinus rhythm, 69 bpm
[2019-02-16] MEDS: ACETAMINOPHEN 325 MG TAB PO PRN ×2 (10:01→14:28)
[2019-02-16] MEDS ORDERED: STROKE PATIENT DISCHARGE STA (15:47)
--- NOTE | 2019-02-16 16:35 | Pharmacy Report ---
Pharmacist Stroke Counseling - Date of Service February 16, 2019 - Scope: Pharmacy has been consulted to provide medication discharge counseling for this patient admitted with transient ischemic attack as per the Pharmacist Discharge Counseling for Stroke Patients Protocol. - Medications on Discharge: Home Medications Medication Instructions Recorded Confirmed Zyrtec 10 mg PO QAM 07/19/18 02/15/19 calcium carbonate-vitamin D3 1 tab PO BID 07/19/18 02/15/19 [Calcium 500 + D] ibuprofen [Advil] 600 mg PO QID PRN 07/19/18 02/15/19 albuterol sulfate 2 puff INHALATION QID PRN 02/15/19 02/15/19 budesonide-formoterol [Symbicort] 2 puff INHALATION BID 02/15/19 02/15/19 gabapentin [Neurontin] 400 mg PO TID 02/15/19 02/15/19 montelukast [Singulair] 10 mg PO HS 02/15/19 02/15/19 New Rx's Medication Instructions Recorded aspirin 81 mg PO DAILY #30 tab 02/16/19 - Action: The above medications, specifically ones for stroke treatment/prophylaxis, have been reviewed in detail with the patient and patient merchandiser retail representative prior to discharge. This includes indication, common adverse reactions, drug interactions, and medication administration. Medication counseling has been employed using the teach-back method to ensure understanding. - Outcome: The patient and/or patient merchandiser retail representative have demonstrated understanding of the medication. Patient said that a follow up phone call is not needed to review new meds since he is only being discharge on ASA 81 mg daily. I reviewed side effects of ASA and monitor for s/sxs of bleeding. He said a follow up appt. is being set up with his PCP. Thank you for allowing pharmacy to be involved in the care of this patient. Please call [phone] or [phone] with any additional questions
--- NOTE | 2019-02-16 19:14 | Discharge Summary ---
Date of Service February 16, 2019 Admission HPI Per Admitting Provider 58 yo male with no significant PMH presents with stroke-like symptoms. Symptoms included dysarthria, right facial droop, right facial numbness, right arm numbness. He states that the symptoms began today at 4:45 while at physical therapy. He describes laying on his right side and states that he began to feel very poor. At that moment, his words became slurred and he felt changes of sensation in his right arm and right face. The symptoms were witnessed by the therapist and states that they lasted 30 seconds to a minute. On arrival to the ED, speech and facial droop had resolved, but he still expressed sensation iss ues of the face. He denies visual, gait, or other focal neuro deficits. No PMH of CAD, HTN, HLD, DM or smoking. His mother had a history of TIA and CVA. Review of sx; Const; no fevers, no chills, no night sweats HEENT; denies sore throat, describes having a headache, denies runny nose Chest; denies chest pain, denies palpitations, denies SOB and lower extremity swelling Abdomen; denies ab pain, n/v/d Principal Diagnosis Transient Ischemic Attack Discharge Exam Constitutional WD/WN, vitals as above no acute distress and not ill appearing Eyes + anicteric sclerae and PERRL ENMT Ears: no hearing impairment Neck normal visual inspection and trachea midline Respiratory normal respiratory effort, lungs clear to auscultation Cardiovascular RRR, no murmur, no edema Gastrointestinal (Abdomen) Inspection/Auscultation: normal bowel sounds Percussion/Palpation: abdomen soft; abdomen nontender Musculoskeletal Head/Neck/Chest: normocephalic and head atraumatic Skin no rashes, warm and dry Neurologic moves all extremities Speech / Cognition: normal speech Cranial Nerves: PERRL, tongue midline and normal hearing Psychiatric A+Ox3, euthymic affect Discharge Data Allergies Allergy/AdvReac Type Severity Reaction Status Date / Time amoxicillin Allergy Intermediate RASH,TOLERATED Verified 02/15/19 19:48 ZOSYN 01/22/16 ADM. clavulanic acid Allergy Intermediate RASH Verified 02/15/19 19:48 hydrocodone Allergy Mild DIZZY, Verified 02/15/19 19:48 NAUSEA Consultations 02/15/19 19:22 ED Decision to Admit Stat 02/15/19 20:37 Consult Case Management - Discharge Planning Routine Consult Neurology Routine Ordered Studies Brain MRI WITH AND WITHOUT CONTRAST FINDINGS: There are no areas of restricted diffusion to suggest acute infarction. The midline structures are intact. The paranasal sinuses are clear. The mastoid air cells are clear. The ventricles and sulci are within normal limits for age. There is no mass, hematoma, midline shift. The major vascular flow-voids at the skull base are well maintained. Postcontrast sequences show no areas of abnormal enhancement. IMPRESSION: No acute intracranial abnormality. HEAD & NECK CTA FINDINGS: There is no mass, hematoma, midline shift, or acute infarct. Visualized intracranial internal carotid arteries, distal vertebral arteries, and basilar artery are widely patent. 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 The major dural venous sinuses are patent. The aortic arch and proximal great vessels are widely patent. There is no significant stenosis, occlusion, or dissection identified within the bilateral common carotid, internal carotid, or vertebral arteries. Patchy ground glass densities and interlobular septal thickening within the lung apices favors mild pulmonary edema. A 7 mm right thyroid nodule is noted. IMPRESSION: 1. No significant stenosis, occlusion, or aneurysm within the k[place] of [place]. 2. No significant stenosis, occlusion, or dissection identified within the carotid or vertebral arteries. 3. Mild pulmonary edema. Hospital Course (1) TIA (transient ischemic attack): - Symptoms included dysarthria, R facial droop, R facial numbness, R arm numbness that lasted for approx. 30-60 seconds - symptoms completely resolved - Has low risk factors however given degree of symptoms and quick resolution and TIA is hard to dispute - Hypercoagulable work-up obtained which are reference labs which will need reviewed upon population - Lipid panel WNL; A1c WNL - MRI and Head/Neck CTA unremarkable - Echocardiogram - EF 55-60% with no regional wall motion abnormalities; moderate to severe LVH; no significant diastolic dysfunction; mildly dilated R ventricle with normal systolic function; probable PFO with small R to L inter- atrial shunt noted however with suboptimal images; normal RV systolic pressure; no significant valvular abnormalities visualized - Neurology consulted - discussed with Dr. Bal - plan to implement ASA 81 mg daily -- Discussed PFO and advised could obtain U/S B/L venous doppler to R/O DVT - patient without symptoms of edema, pain, erythema - discussed with patient and and did provide an Rx for outpatient U/S for thoroughness however suspicion is lower for DVT -- If were to have another TIA the recommendation would be for an event monitor - during admission he remained in NSR without signs of arrhythmia (2) Asthma: - Continue Symbicort, Albuterol, and Zyrtec (3) Sciatic pain: - Gabapentin 400 mg TID Total Time Total Time Spent Total Time Spent (In Minutes): Greater than 30 minutes Discharge Plan Discharge Items Patient Disposition: Home - Self-Care Reason For Visit: STROKE LIKE SYMPTOMS Discharge Diagnosis: Transient Ischemic Attack Discharge Goals: Decrease discomfort, Improve disease control and Prevent disease Activity: Resume your previous activity Non-emergency contact: Primary Care Provider Call non-emergency contact if: you have any medication questions, your symptoms worsen and you have a fever Follow-up/Referrals: Chavez Morrison MD [Primary Care Provider] - 02/22/19 10:50 am Addtl Provider Instructions: Transient Ischemic Attack or TIA: - This is a condition when temporary blood flow is reduced to a part of the brain yet resolves and does not leave any damage in the brain. Thankfully your scan of your head do not show a stroke. - A TIA can be a warning sign for a stroke. When you have a TIA it could mean your risk for stroke is higher than someone who has never had one. Thankfully the other risk factors like blood pressure, high blood sugars, high cholesterol are not risk factors you have at this time. Recommend to continue to eat a well balanced diet and exercise regularly to reduce your stroke risk. Recommend to have routine follow-up with your family doctor for maintenance of cholesterol and blood pressure - You will be started on a baby aspirin (81 mg) daily. This is an anti-platelet which causes the platelets (clotting factors) to be more slippery so they don't stick together. This is not a blood thinner. However, it can make you bruise a little easier while on it. - You also had a hypercoaguable tests done (blood tests to check for genetic reasons to be prone to clots). These get sent out from the hospital so they take a few days to come back. You family doctor can follow-up on these labs. Patent Foramen Ovale: - On your echocardiogram (ultrasound of the heart). It suggests you may have small PFO. This is a hole in between the left and right atria (top chambers of the heart). - This is something you had your whole life. About 25% of people have this and the formen ovale for some reason did not close completely after you were born. - For most people this does not cause people issues, most people do not even know they have it. - PFOs do NOT cause a stroke but instead can provide a path for one to happen. If you would develop a clot it could travel to the heart. The heart typically could pump this to the lungs but someone with a PFO could have this clot move to the L side of the heart and then travel to the brain. - The majority of the time this hole does not need to be closed. It would require a heart surgery to do that. - Will provide a prescription for an ultrasound of the legs to check for blood clots in the legs. Clinically it does not appear you have this but to be thorough we can have these looked at to just rule out a source. . Who to Call and When: Medical Emergencies: Call 911 immediately if you experience any of the following warning signs and symptoms of Stroke: * Sudden numbness or weakness of the face, arm or leg, especially on one side of the body * Sudden confusion, trouble speaking or understanding * Sudden trouble seeing in one or both eyes * Sudden trouble walking, dizziness, loss of balance or coordination * Sudden severe headache with no cause Do not delay calling 911 if you experience any warning signs or symptoms of a stroke. Delay in seeking medical attention may affect what treatments can be given to you. . Risk Factors for Stroke: You can reduce your chances of stroke by working with your medical provider to adopt a healthy lifestyle. Some specific ways to lower your chance of stroke are: * If you are a smoker, now is the time to stop smoking cigarettes * If you are diabetic, improve the control of your blood sugars * Avoid excessive amounts of alcohol * Control high blood pressure * Lose weight if you are overweight * Be sure to lead an active lifestyle * Eat a healthy diet low in salt, cholesterol and fat You should know about other risk factors for stroke that you are unable to control. These include: * Age 55 years or older * Male gender * Certain racial groups: , or / * Family History of Stroke, Mini stroke or Heart Attack * Sickle Cell Disease Follow Up: It is important for you to keep your follow up appointments with your medical provider. Who to Call and When: Medical Emergencies: Call 911 immediately if you experience any of the following warning signs and symptoms of Stroke: * Sudden numbness or weakness of the face, arm or leg, especially on one side of the body * Sudden confusion, trouble speaking or understanding * Sudden trouble seeing in one or both eyes * Sudden trouble walking, dizziness, loss of balance or coordination * Sudden severe headache with no cause Do not delay calling 911 if you experience any warning signs or symptoms of a stroke. Delay in seeking medical attention may affect what treatments can be given to you. . Prescriptions: New aspirin 81 mg tablet,delayed release (DR/EC) 81 mg PO DAILY Qty: 30 RF: 0 Continued Zyrtec 10 mg Capsule 10 mg PO QAM RF: 0 ibuprofen [Advil] 200 mg Tablet 600 mg PO QID PRN (Reason: Pain) RF: 0 calcium carbonate-vitamin D3 [Calcium 500 + D] 500 mg(1,250mg) -200 unit Tablet 1 tab PO BID RF: 0 gabapentin [Neurontin] 400 mg capsule 400 mg PO TID RF: 0 montelukast [Singulair] 10 mg tablet 10 mg PO HS RF: 0 albuterol sulfate 90 mcg/actuation HFA aerosol inhaler 2 puff inhalation QID PRN (Reason: Wheezing) RF: 0 Symbicort 160-4.5 mcg/actuation HFA aerosol inhaler 2 puff inhalation BID RF: 0 Stand-Alone Forms: Medications to Prevent Stroke, [facility] [address]/Other Patient Handouts: Attack Transient Ischemic Dc Discharge Orders: Discharge Order (Routine); Ordered 02/16/19 Ordered By: Rosa Isela Osuna Admission Data Admit Date/Time: 02/15/19 19:45 Attending Provider: Jose A Galvez Admit Provider: Curtis Castle Primary Care Provider: Chavez Morrison Other Providers: Loc Cortes ; Camacho Bal Service: Telemetry Other Interventions: Discharge Summary Assessment (RN) Last Done: 02/16/19 16:25 Pending Studies at Discharge: Yes Studies:: Hypercoagulable work-up DC Date/Time DO NOT enter until pt leaves facility: 02/16/19 17:35 Supervising Physician Co-Signing Physician Notes Attending note: patient seen and examined with Rosa Isela Osuna PA-C. I agree with her discharge summary. I reviewed the imaging and labs. Reviewed echocardiogram that showed a probable small PFO. Discussed the case with Dr. Bal with neurology. He recommends aspirin. Reviewed labs that showed LDL at goal of 74, HDL could be higher but with low LDL do not need to treat. HbA1c at goal as well as blood pressure. - TIA: will treat with aspirin, no other medication changes given the small PFO will check venous dopplers as outpatient, he has no signs or symptoms of DVT in either leg follow up with PCP and neurology in one month
[2019-02-21 06:50] LABS: B2 Glycoprotein IgA <9 SAU (<=20); B2 Glycoprotein IgG <9 SGU (<=20); B2 Glycoprotein IgM <9 SMU (<=20); Beta-2-Microglobulin 2.55 MG/L (<or=2.51); Lupus Anticoagulant Weak Positive (Negative); Phosphatidylserine IgG <10 U/mL (<10); Phosphatidylserine IgM 30 U/mL (<25)
== END 2019-02-16 17:35 | disposition home or self-care (01) | DRG 69 ==
LOC: ED 17:59 → 2S 19:45 → SUATTDRO 19:45 → 2S 20:19

== ENCOUNTER 2022-09-16 13:05 | Observation (INO) ==
--- NOTE | 2022-09-16 13:17 | ED Triage Note ---
Date of Service September 16, 2022 History of Present Illness This patient was briefly evaluated while in triage. An abbreviated physical exam was performed. This patient is a 61-year-old Male with history of a recent fall last week who presents to the ED for evaluation of worsening pain and swelling in the right leg. He recently traveled to and from [place]. He does take Xarelto for a history of Afib and TIA. Physical Exam VITALS: Vitals are noted on the nurse's note and reviewed by myself. GENERAL: This is a 61-year-old male, in no acute distress, well-developed well- nourished. MUSCULOSKELETAL: There is ecchymosis and edema noted to the right lower leg. Tenderness to the knee and lower leg. NEURO: Patient was alert and oriented to person place and time. Distal sensation intact. Initial orders for labs and / or imaging were placed and patient was placed in the waiting area until a bed is available. Please see further documentation for the full ED course.
--- NOTE | 2022-09-16 13:42 | XRay Report ---
XR knee RT 3V HISTORY: 61 years-old Male Right knee pain, fall last week acute right knee pain status post fall COMPARISON: Right knee radiographs 09/08/2022 TECHNIQUE: 3 views of the right knee FINDINGS: Mild diffuse soft tissue swelling. Mild tricompartmental osteoarthritis of the right knee without acu te fracture, dislocation or osseous erosion. Soft tissue swelling within the soft tissues superficial to the patellar tendon and proximal tibial tuberosity redemonstrated. IMPRESSION: 1. No acute fracture or dislocation identified. 2. Anterior soft tissue swelling redemonstrated. ACT 112: Negative or not required by law. The above report was generated using voice recognition software. It may contain grammatical, syntax o r spelling errors. Electronically signed by: Doni Vasquez M.D. 09/16/2022 1:40 PM
--- NOTE | 2022-09-16 14:20 | Emergency Department Note ---
History of Present Illness General Chief complaint: Swelling/Edema to Extremity Stated complaint: R LEG SWELLING, HOT/PAINFUL TO TOUCH WC Time Seen by Provider: 09/16/22 14:19 History of Present Illness Maximum Pain Intensity: 10 This is a 61-year-old male that presents to the emergency department via private vehicle with complaints of "right leg swelling, hot/painful to the touch". Nitin jackson notes that he was here about 8 days ago status post fall that occurred while at work. He was ambulating, slipped and fell injuring his right knee as well as the ribs/wrist region. Ribs and wrist seem to be doing well but he persists with right leg discomfort that is now worsening. He notes pain, swelling and now redness to the right knee region. When he attempts to bear weight he notes pain from the right knee that extends into the right ankle region. He also notes worsening bruising to the right lower extremity. Patient notes that he does take Xarelto. He has also been trying tramadol and methocarbamol at home as well as acetaminophen with minimal relief. He initially tried ice for the area but notes minimal relief with this. Home Medications Medication Instructions Recorded Confirmed Type calcium carbonate 500 mg-vitamin 1 tab PO BID 07/19/18 09/16/22 History D3 5 mcg (200 unit) tablet (Calcium 500 + D) albuterol sulfate 90 mcg/actuation 2 puff inhalation QID PRN Wheezing 02/15/19 1 11/17/21 History aerosol inhaler cholecalciferol (vitamin D3) 25 1,000 units PO QAM 04/21/19 09/16/22 History mcg (1,000 unit) capsule cetirizine 10 mg tablet 10 mg PO QAM #90 tabs 06/07/19 09/16/22 History CPAP Machine #1 ea 10/10/19 12/18/21 Rx CPAP Supplies #1 ea 12/07/19 12/18/21 Rx pantoprazole 40 mg tablet,delayed 40 mg PO QAM 01/20/21 09/16/22 History release (Protonix) acetaminophen 325 mg tablet 1,000 mg PO ACHS 07/29/21 09/16/22 History (Tylenol) tramadol 50 mg tablet 50 mg PO Q12 PRN Pain 07/29/21 09/16/22 History methocarbamol 500 mg tablet 500 mg PO Q8H 12/12/21 09/16/22 History hydrocortisone 2.5 % topical cream 1 applic topical BID PRN Rash 08/18/22 09/16/22 History budesonide-formoterol HFA 80 1 puff inhalation Q12H #3 Inhalers 08/25/22 09/16/22 Rx mcg-4.5 mcg/actuation aerosol inhaler (Symbicort) rivaroxaban 20 mg tablet (Xarelto) 20 mg PO PM #30 tabs 08/25/22 09/16/22 Rx benzonatate 100 mg capsule 200 mg PO DIRECTED PRN Cough 09/16/22 09/16/22 History gabapentin 800 mg tablet 800 mg PO TID 09/16/22 09/16/22 History Allergies Allergy/AdvReac Type Severity Reaction Status Date / Time amoxicillin Allergy Intermediate RASH,TOLERATED Verified 08/24/22 07:35 ZOSYN 01/22/16 ADM. animal dander Allergy Intermediate Sneezing Verified 08/24/22 07:35 clavulanic acid Allergy Intermediate RASH Verified 08/24/22 07:35 tree and shrub pollen Allergy Mild Sneezing Verified 08/24/22 07:35 adhesive AdvReac Intermediate Rash Verified 09/16/22 20:12 clindamycin AdvReac Mild STOMACH Verified 08/24/22 07:35 CRAMPS hydrocodone AdvReac Mild DIZZY, Verified 08/24/22 07:35 NAUSEA oxycodone [From OxyContin] AdvReac Mild does not Verified 08/24/22 07:35 tolerate Past Med/Surg History Medical History Asthma WELL CONTROLLED PER PT Atrial fibrillation Xarelto > FOLLOWS DR. DILL > NO PACER> last visit 2019 Chronic back pain Environmental allergies History of anesthesia reaction states hard for him to come out of it History of COVID-19 11/24/20- congestion, cough, fatigue, abdominal pain, elevated LFTs; still with abdominal pain 12/2021 cough and sinus infection, no hospitalization, no current issues History of diverticulitis IBS (irritable bowel syndrome) Lumbar radiculopathy On anticoagulant therapy xarelto CARROLL (obstructive sleep apnea) CPAP Osteoarthritis PFO (patent foramen ovale) no issues per pt LETICIA approx 2 yrs ago Transient ischemic attack (TIA) JANUARY 2019 /Apr 2020 (NO CURRENT PROBLEMS or RESIDUAL EFFECTS) Surgical History History of bowel resection WITH COLOSTOMY/REVERSAL 2016 History of cholecystectomy History of colonoscopy History of colostomy reversal History of discectomy LUMBAR x2 History of endoscopic sinus surgery History of esophagogastroduodenoscopy (EGD) History of tooth extraction S/P epidural steroid injection Strabismus REPAIRED Family History Brother Family history of diabetes mellitus Father , Age 70 Kidney disease Leukemia Mother , Age 78 COPD (chronic obstructive pulmonary disease) Lung cancer Stroke Other TIA (transient ischemic attack) Social History Smoking Status: Never smoker Second Hand Exposure: No; Do You Dip or Chew Tobacco: No; Hx Alcohol Use: No Hx Substance Use: No Preferred Language: Bahraini Communication Ability: Effective Paint Pourer Required: No Beliefs That Will Affect Care: None marital status: Current Living Situation: Spouse Other Information That Helps Us Care for You: No Feels Safe at Home: Yes Assistive Devices: CPAP and Glasses Review of Systems A total of 10 systems reviewed and were otherwise negative Physical Exam Vital Signs Vital Signs - 24 hr 09/16/22 13:10 09/16/22 16:23 Temperature 37.2 C Temperature Source Temporal Artery Scan Pulse Rate 89 Pulse Rate [Right] 70 Pulse Rhythm [Right] Regular Respiratory Rate 18 22 Respiratory Effort / Characteristics Non-Labored Non-Labored Respiratory Depth Normal Normal Respiratory Pattern Regular Blood Pressure 153/92 H Blood Pressure [Right Arm] 150/76 H Blood Pressure Mean 112 Blood Pressure Mean [Right Arm] 100 Blood Pressure Position [Right Arm] Lying Pulse Oximetry 97 97 Oxygen Delivery Method Room Air Room Air Sepsis Recent Fever Within 48 Hours No Sepsis New/Unexplained Change in Mental Status N/A Sepsis Action Taken by Nursing No Action Required VITAL SIGNS - Vital signs and nursing notes were reviewed. Stable and afebrile. GENERAL -61-year-old male appearing his stated age who is in no acute distress. Communicates well with provider and answers questions appropriately. SKIN -there is circumferential edema overlying the patient's right distal thigh extending to the right foot region. The right knee does have some erythematous hue overlying the medial and anterior aspect. There are healed wounds to the right anterior knee overlying the patella region. There is ecchymosis/bruising present overlying the right knee extending to the right ankle with some dependent bruising noted. No acute break in the integument. No fluctuance. HEAD - NC/AT. LUNGS - Chest wall symmetric without accessory muscle use, intercostals retractions, or central cyanosis. Normal vesicular breath sounds CTA B/L. No wheezes, rales, or rhonchi appreciated. CARDIAC - RRR with S1/S2. No murmur, rubs, or gallops appreciated. EXTREMITIES - No clubbing or peripheral cyanosis. Skin as above. Right dorsalis pedis pulse within normal limits. Cap refill of the toes of the right foot within normal limits. Patient is quite tender to touch throughout much of the right lower extremity between the right knee, right calf region and right ankle. No evidence of compartment syndrome. There is no pallor. Decreased range of motion of the right knee secondary to pain. +5/5 strength noted in UE/LE bilaterally. NEUROLOGIC - Cranial nerves II through XII grossly intact. Patient is sensory intact throughout the right lower extremity. PSYCH - A&O, and cooperates fully with examiner. Pt is very pleasant and interacts well with examiner. Course Administered Medications Acetaminophen (Acetaminophen 500 Mg Tab) 1,000 mg PO TID [facility] Stop: 10/16/22 20:59 Last Admin: 09/16/22 22:01 Dose: 1,000 mg Documented By: Calcium/Vitamin D (Calcium 600mg + Vit D 400 Iu Tab) 1 tab PO BID [facility] Stop: 10/16/22 20:59 Last Admin: 09/16/22 21:59 Dose: 1 tab Documented By: Fluticasone/Vilanterol (Fluticasone/Vilanterol 100/25mcg 14 Puffs/Inhaler) 1 puffs INH DAILY [facility] Stop: 10/16/22 20:29 Last Admin: 09/16/22 21:59 Dose: 1 puffs Documented By: Gabapentin (Gabapentin 300 Mg Cap) 900 mg PO TID [facility] Stop: 10/16/22 20:59 Last Admin: 09/16/22 22:02 Dose: 900 mg Documented By: Methocarbamol (Methocarbamol 500 Mg Tablet) 500 mg PO TID PRN PRN Reason: Muscle Spasm Stop: 10/16/22 20:49 Last Admin: 09/16/22 22:00 Dose: 500 mg Documented By: FR Morphine Sulfate (Morphine Sulfate 2 Mg/Ml Carp) 2 mg IV Q4 PRN PRN Reason: Moderate Pain Stop: 09/30/22 20:06 Last Admin: 09/16/22 21:55 Dose: 2 mg Documented By: FR Ondansetron HCl (Ondansetron Inj 2 Mg/Ml 2 Ml Vial) 4 mg IV Q6H PRN PRN Reason: Nausea Stop: 10/16/22 20:06 Last Admin: 09/16/22 21:55 Dose: 4 mg Documented By: FR Rivaroxaban (Rivaroxaban 20 Mg Tab) 20 mg PO QDD BHAVESH Stop: 10/16/22 20:29 Last Admin: 09/16/22 22:00 Dose: 20 mg Documented By: FR Discontinued Medications Morphine Sulfate (Morphine Sulfate 4 Mg/Ml 1 Ml Carp\\Vial) 4 mg IV NOW STA Stop: 09/16/22 14:39 Last Admin: 09/16/22 16:20 Dose: 4 mg Documented By: AM Ondansetron HCl (Ondansetron Inj 2 Mg/Ml 2 Ml Vial) 4 mg IV NOW STA Stop: 09/16/22 14:39 Last Admin: 09/16/22 16:19 Dose: 4 mg Documented By: AM Medical Decision Making Laboratory Data Result diagrams: 09/16/22 14:20 09/16/22 14:20 Lab Results 09/16/22 09/16/22 09/16/22 Range/Units 14:20 14:20 14:20 WBC 6.40 (4.8-10.8) K/ul RBC 4.38 L (4.63-6.08) M/uL Hgb 14.2 (14.0-18.0) g/dl Hct 41.8 (40.1-51.0) % MCV 95.4 (80.0-100.0) fL MCH 32.4 (25.0-34.0) pg MCHC 34.0 (32.0-36.0) g/dL RDW Std Deviation 47.2 H (36.4-46.3) fL RDW Coeff of Violeta 13.3 (11.5-14.5) % Plt Count 184 (130-400) K/uL MPV 9.5 (9.4-12.4) fL Immature Gran % (Auto) 0.3 % Neut % (Auto) 68.5 % Lymph % (Auto) 17.0 % Johnston % (Auto) 10.9 % Eos % (Auto) 2.5 % Baso % (Auto) 0.8 % Neut # (Auto) 4.38 (1.4-6.5) K/uL Lymph # (Auto) 1.09 L (1.2-3.4) K/uL Johnston # (Auto) 0.70 (0.24-0.82) K/uL Eos # (Auto) 0.16 (0-0.50) K/uL Baso # (Auto) 0.05 (0-0.2) K/uL Immature Gran # (Auto) 0.02 (0.00-0.02) K/uL PT 10.9 (9.0-12.0) Seconds INR 1.0 (0.9-1.1) APTT 31.6 H (21.0-31.0) Seconds PTT Ratio 1.1 Sodium 140 (136-145) mmol/L Potassium 4.0 (3.5-5.1) mmol/L Chloride 108 H (98-107) mmol/L Carbon Dioxide 28 (21-32) mmol/L Anion Gap 4 (3-11) BUN 28 H (6-23) mg/dl Creatinine 0.83 (0.6-1.4) mg/dl Est Cr Clr Drug Dosing 130.3 ml/min Est GFR ( Amer) 111.6 ml/min Est GFR (Non-Af Amer) 96.3 ml/min BUN/Creatinine Ratio 33.7 H (10-20) Glucose 73 (70-99(Fasting)) mg/dl Lactate (0.4-2.0) mmol/L Calcium 8.7 (8.5-10.1) mg/dl Total Bilirubin 0.9 (0.2-1.0) mg/dl AST 26 (13-39) U/L ALT 19 (7-52) U/L Alkaline Phosphatase 61 (34-104) U/L Total Protein 7.3 (6.0-8.3) gm/dl Albumin 4.1 (3.4-5.0) gm/dl Globulin 3.2 (2.5-4.0) gm/dl Albumin/Globulin Ratio 1.3 (0.9-2) Procalcitonin (0-0.5) ng/ml SARS-CoV-2, RNA, NAAT (NEGATIVE) 09/16/22 09/16/22 09/16/22 Range/Units 14:20 15:20 17:50 WBC (4.8-10.8) K/ul RBC (4.63-6.08) M/uL Hgb (14.0-18.0) g/dl Hct (40.1-51.0) % MCV (80.0-100.0) fL MCH (25.0-34.0) pg MCHC (32.0-36.0) g/dL RDW Std Deviation (36.4-46.3) fL RDW Coeff of Violeta (11.5-14.5) % Plt Count (130-400) K/uL MPV (9.4-12.4) fL Immature Gran % (Auto) % Neut % (Auto) % Lymph % (Auto) % Johnston % (Auto) % Eos % (Auto) % Baso % (Auto) % Neut # (Auto) (1.4-6.5) K/uL Lymph # (Auto) (1.2-3.4) K/uL Johnston # (Auto) (0.24-0.82) K/uL Eos # (Auto) (0-0.50) K/uL Baso # (Auto) (0-0.2) K/uL Immature Gran # (Auto) (0.00-0.02) K/uL PT (9.0-12.0) Seconds INR (0.9-1.1) APTT (21.0-31.0) Seconds PTT Ratio Sodium (136-145) mmol/L Potassium (3.5-5.1) mmol/L Chloride (98-107) mmol/L Carbon Dioxide (21-32) mmol/L Anion Gap (3-11) BUN (6-23) mg/dl Creatinine (0.6-1.4) mg/dl Est Cr Clr Drug Dosing ml/min Est GFR ( Amer) ml/min Est GFR (Non-Af Amer) ml/min BUN/Creatinine Ratio (10-20) Glucose (70-99(Fasting)) mg/dl Lactate 0.7 (0.4-2.0) mmol/L Calcium (8.5-10.1) mg/dl Total Bilirubin (0.2-1.0) mg/dl AST (13-39) U/L ALT (7-52) U/L Alkaline Phosphatase (34-104) U/L Total Protein (6.0-8.3) gm/dl Albumin (3.4-5.0) gm/dl Globulin (2.5-4.0) gm/dl Albumin/Globulin Ratio (0.9-2) Procalcitonin < 0.05 (0-0.5) ng/ml SARS-CoV-2, RNA, NAAT NEGATIVE (NEGATIVE) Imaging Data Radiologist's Impression: Venous Doppler Study 09/16/22 13:12 US venous doppler LE RT CLINICAL HISTORY: Right leg pain,swelling recent injury TECHNIQUE: Right lower extremity real-time compression venous ultrasound with Color Doppler imaging. Utilizing real-time ultrasonic imaging multiple real time high-resolution ultrasonic images with compression and noncompression maneuvers of the deep venous system in addition to color doppler imaging were performed from the common femoral vein through the proximal calf veins. COMPARISON: None available at the time of this dictation. FINDINGS: Currently there is normal compressibility of the deep venous system from the common femoral vein through the proximal calf veins. No superficial venous thrombosis is identified. Impression: No evidence of deep venous thrombus. ACT 112: Negative or not required by law. Electronically signed by: Jose A Tracey M.D. 09/16/2022 4:25 PM Knee X-Ray 09/16/22 13:13 XR knee RT 3V HISTORY: 61 years-old Male Right knee pain, fall last week acute right knee pain status post fall COMPARISON: Right knee radiographs 09/08/2022 TECHNIQUE: 3 views of the right knee FINDINGS: Mild diffuse soft tissue swelling. Mild tricompartmental osteoarthritis of the right knee without acute fracture, dislocation or osseous erosion. Soft tissue swelling within the soft tissues superficial to the patellar tendon and proximal tibial tuberosity redemonstrated. IMPRESSION: 1. No acute fracture or dislocation identified. 2. Anterior soft tissue swelling redemonstrated. ACT 112: Negative or not required by law. The above report was generated using voice recognition software. It may contain grammatical, syntax or spelling errors. Electronically signed by: Doni Vasquez M.D. 09/16/2022 1:[address] 09/16/22 14:37 CT knee RT wo con HISTORY: 61 years-old Male Worsening R knee pain s/p fall acute right knee pain status post fall COMPARISON: Right knee radiographs 09/16/2022, 09/08/2022 TECHNIQUE: Multiple axial CT images of the right knee were obtained without the use of IV contrast. A dose lowering technique was used consistent with the principals of [place]UL[place]NA. FINDINGS: Small joint effusion. Moderate subcutaneous edema is most pronounced anteriorly. Pretibial subcutaneous hematoma, 4.5 x 2.1 x 5.5 cm. Ligaments and tendons are not well evaluated by CT technique. Medial varicosities are noted. Mild to moderate medial and patellofemoral with moderate moderate lateral compartment osteoarthritis. Air is noted within the lateral compartment which is likely on a degenerative basis. No acute fracture, dislocation, osseous erosion or intra-articular loose body. IMPRESSION: 1. No acute fracture or dislocation. 2. Tricompartmental osteoarthritis. 3. Nonspecific subcutaneous edema of the knee with 5.5 cm pretibial subcutaneous hematoma. ACT 112: Negative or not required by law. The above report was generated using voice recognition software. It may contain grammatical, syntax or spelling errors. Electronically signed by: Doni Vasquez M.D. 09/16/2022 4:27 PM Tibia/Fibula X-Ray 09/16/22 14:38 XR tibia fibula RT 2V HISTORY: 61 years-old Male Worsening R leg pain . Acute pain of the right lower extremity COMPARISON: Right knee radiographs of same day TECHNIQUE: 2 views of the right tibia and fibula FINDINGS: Osteoarthritis of the knee and ankle. Diffuse soft tissue swelling. No acute fracture, dislocation or opaque foreign body identified. Degenerative spurring of the calcaneus. IMPRESSION: Soft tissue swelling without acute fracture or dislocation identified. ACT 112: Negative or not required by law. The above report was generated using voice recognition software. It may contain grammatical, syntax or spelling errors. Electronically signed by: Doni Vasquez M.D. 09/16/2022 3:47 PM [facility] Narrative Patient was seen and evaluated as above in room D02. Review was performed of nursing notes and vital signs. I did review pertinent previous visits and patient history. After obtaining a thorough history and physical examination the above work up was performed. Patient presents to us today with worsening right knee discomfort status post fall that occurred about 8 days ago. He clinically appears well and nontoxic but does appear to be in pain. Right lower extremity edematous with bruising noted. No deformity. Options of care were discussed with the patient. IV access was established. Labs were drawn. Ultrasound was obtained of the right lower extremity and is negative for DVT. Knee x-ray and tib/fib x-ray without evidence of fracture. Knee CT obtained to further evaluate for potential occult fracture within the knee joint. This was negative for fracture. However, this did identify a 5.5 cm pretibial subcutaneous hematoma. In the setting of the patient's anticoagu lant use and recent trauma this is likely causing much of his discomfort. However, despite at home oral medications he continues to have poor pain control at home and continues with worsening pain and swelling. Although there is some erythema to the knee at this time the patient's laboratory studies do not suggest infection and he is not febrile. Labs reveal no leukocytosis or concerning anemia. No emergent metabolic disturbance. Pro-Narciso negative. Lactate negative. COVID testing negative. I did discuss presentation with orthopedics and also evaluated the patient. The patient at this time does not require any surgical intervention. However, I do believe that further evaluation and management in the inpatient setting is warranted noting the patient's continued and now worsening knee discomfort in the setting of poor pain control while at home. Case discussed with the hospitalist service. Please refer to further documentation regarding his stay. No evidence of neurovascular compromise or compartment syndrome at this time. GCS: 15 In the evaluation and treatment of this patient the following differential diagnoses were entertained: Fracture, dislocation, subluxation, contusion, DVT, among others. Impression & Plan Hematoma of right lower extremity, Pain in right leg Discharge Plan Visit Data Chief Complaint: Swelling/Edema to Extremity Stated Complaint: R LEG SWELLING, HOT/PAINFUL TO TOUCH WC ED Provider: Sergei Almaraz ED Midlevel Provider: Munir Pagan Discharge Problem: Hematoma of right lower extremity, Pain in right leg Patient Disposition: Admitted As Inpatient Condition: Good Discharge Instructions Interventions: ED Discharge Assessment Last Done: 09/16/22 19:42
[2022-09-16] MEDS ORDERED: ONDANSETRON INJ 2 MG/ML 2 ML VIAL IV STA (14:38)
[2022-09-16] MEDS ORDERED: MoRPHine SULFATE 4 MG/ML 1 ML CARP\\VIAL IV STA (14:38)
[2022-09-16 14:48] LABS: Hematocrit (blood only) 41.8 % (40.1-51.0); Hemoglobin 14.2 g/dl (14.0-18.0); Mean Corpuscular Hemoglobin 32.4 pg (25.0-34.0); Mean Corpuscular Volume 95.4 fL (80.0-100.0); Platelet Count 184 K/uL (130-400); RDW Coefficient of Variation 13.3 % (11.5-14.5); RDW Standard Deviation 47.2 fL (36.4-46.3); Red Blood Count 4.38 M/uL (4.63-6.08)
[2022-09-16 14:49] LABS: Basophils # (auto) 0.05 K/uL (0-0.2); Basophils % (auto) 0.8 %; Eosinophils # (auto) 0.16 K/uL (0-0.50); Eosinophils % (auto) 2.5 %; Immature Granulocytes # (auto) 0.02 K/uL (0.00-0.02); Immature Granulocytes % (auto) 0.3 %; Lymphocytes # (auto) 1.09 K/uL (1.2-3.4); Mean Platelet Volume 9.5 fL (9.4-12.4); Monocytes % (auto) 10.9 %; Neutrophils # (auto) 4.38 K/uL (1.4-6.5); Neutrophils % (auto) 68.5 %
[2022-09-16 14:59] LABS: Partial Thromboplastin Ratio 1.1; Partial Thromboplastin Time 31.6 Seconds (21.0-31.0); Prothrombin Time 10.9 Seconds (9.0-12.0)
[2022-09-16 15:10] LABS: Albumin Globulin Ratio 1.3 (0.9-2); Albumin Level 4.1 gm/dl (3.4-5.0); BUN Creatinine Ratio 33.7 (10-20); Bilirubin,Total 0.9 mg/dl (0.2-1.0); Calcium 8.7 mg/dl (8.5-10.1); Creatinine Clr Calc Pharmacy 130.3 ml/min; Est GFR (African American) 111.6 ml/min; Est GFR (Non-African American) 96.3 ml/min; Globulin 3.2 gm/dl (2.5-4.0); Total Protein 7.3 gm/dl (6.0-8.3)
--- NOTE | 2022-09-16 15:48 | XRay Report ---
XR tibia fibula RT 2V HISTORY: 61 years-old Male Worsening R leg pain . Acute pain of the right lower extremity COMPARISON: Right knee radiographs of same day TECHNIQUE: 2 views of the right tibia and fibula FINDINGS: Osteoarthritis of the knee and ankle. Diffuse soft tissue swelling. No acute fracture, dislocation or opaque foreign body identified. Degenerative spurring of the calcaneus. IMPRESSION: Soft tissue swelling without acute fracture or dislocation identified. ACT 112: Negative or not required by law. The above report was generated using voice recognition software. It may contain grammatical, syntax o r spelling errors. Electronically signed by: Doni Vasquez M.D. 09/16/2022 3:47 PM
--- NOTE | 2022-09-16 16:26 | Ultrasound Report ---
US venous doppler LE RT CLINICAL HISTORY: Right leg pain,swelling recent injury TECHNIQUE: Right lower extremity real-time compression venous ultrasound with Color Doppler imaging. Utilizing real-time ultrasonic imaging multiple real time high-resolution ultrasonic images with comp ression and noncompression maneuvers of the deep venous system in addition to color doppler imaging w ere performed from the common femoral vein through the proximal calf veins. COMPARISON: None available at the time of this dictation. FINDINGS: Currently there is normal compressibility of the deep venous system from the common femoral vein thro ugh the proximal calf veins. No superficial venous thrombosis is identified. Impression: No evidence of deep venous thrombus. ACT 112: Negative or not required by law. Electronically signed by: Jose A Tracey M.D. 09/16/2022 4:25 PM
--- NOTE | 2022-09-16 16:28 | CT Scan Report ---
CT knee RT wo con HISTORY: 61 years-old Male Worsening R knee pain s/p fall acute right knee pain status post fall COMPARISON: Right knee radiographs 09/16/2022, 09/08/2022 TECHNIQUE: Multiple axial CT images of the right knee were obtained without the use of IV contrast. A dose lowering technique was used consistent with the principals of YUL[place]NA. FINDINGS: Small joint effusion. Moderate subcutaneous edema is most pronounced anteriorly. Pretibial subcutaneo us hematoma, 4.5 x 2.1 x 5.5 cm. Ligaments and tendons are not well evaluated by CT technique. Medial varicosities are noted. Mild to moderate medial and patellofemoral with moderate moderate lateral compartment osteoarthritis. Air is noted within the lateral compartment which is likely on a degenerative basis. No acute fractu re, dislocation, osseous erosion or intra-articular loose body. IMPRESSION: 1. No acute fracture or dislocation. 2. Tricompartmental osteoarthritis. 3. Nonspecific subcutaneous edema of the knee with 5.5 cm pretibial subcutaneous hematoma. ACT 112: Negative or not required by law. The above report was generated using voice recognition software. It may contain grammatical, syntax o r spelling errors. Electronically signed by: Doni Vasquez M.D. 09/16/2022 4:27 PM
--- NOTE | 2022-09-16 17:54 | History & Physical Report ---
Date of Service September 16, 2022 Assessment & Plan (1) Contusion of right leg: Plan: Patient significant contusion is likely falling with tenderness about his joint difficulty standing. We will pursue an MRI of his knee and ankle look for ligamentous and tendinous derangement-orthopedic consult follow along for possible need for splinting. Patient will have parenteral and oral opiate medications in addition to ice elevation will not use nsaids while on xarelto (2) CARROLL (obstructive sleep apnea): Plan: We will offer CPAP at bedtime for this patient (3) Atrial fibrillation: Plan: xarelto for thrombosis prophylaxis, no rate controlling agents chronicially (4) Asthma: Plan: Budesonide formoterol for asthma which is currently stable and not in acute exacerbation Plan Pantoprazole for GERD Gabapentin for chronic pain control for his chronic lumbar back pain History of Present Illness Primary Care Provider: Chavez Morrison MD 89-year-old male who fell while working at [facility] at the [facility] patient had sustained an injury to his right lower leg mostly surrounding the knee. Patient takes chronic anticoagulation for atrial fibrillation and a PFO with previous TIAs. Patient's leg is markedly tender to the lateral edge of the knee and ankle. There is significant bruising and possibly 2+ swelling. The patient is point tender and I cannot do a significantly good knee examination there is no apparent laxity that I can feel but the patient is too tender to examine. Patient was seen by orthopedics in the emergency department and felt he is not suffering from compartment syndrome and radiological studies have so far ruled out fracture. This patient cannot ambulate enough to take care of himself at home subsequently will be observed in our facility MRI scan to evaluate for ligamentous and tendinous injury and pain control which may include parenteral medications Allergies Allergy/AdvReac Type Severity Reaction Status Date / Time amoxicillin Allergy Intermediate RASH,TOLERATED Verified 08/24/22 07:35 ZOSYN 16 ADM. animal dander Allergy Intermediate Sneezing Verified 08/24/22 07:35 clavulanic acid Allergy Intermediate RASH Verified 08/24/22 07:35 tree and shrub pollen Allergy Mild Sneezing Verified 08/24/22 07:35 clindamycin AdvReac Mild STOMACH Verified 08/24/22 07:35 CRAMPS hydrocodone AdvReac Mild DIZZY, Verified 08/24/22 07:35 NAUSEA oxycodone [From OxyContin] AdvReac Mild does not Verified 08/24/22 07:35 tolerate spray on adhesive AdvReac Intermediate Rash Uncoded 08/24/22 07:35 Home Medications Medication Instructions Recorded Confirmed Type calcium carbonate 500 mg-vitamin 1 tab PO BID 07/19/18 09/16/22 History D3 5 mcg (200 unit) tablet (Calcium 500 + D) albuterol sulfate 90 mcg/actuation 2 puff inhalation QID PRN Wheezing 02/15/19 09/16/22 History aerosol inhaler cholecalciferol (vitamin D3) 25 1,000 units PO QAM 04/21/19 09/16/22 History mcg (1,000 unit) capsule cetirizine 10 mg tablet 10 mg PO QAM #90 tabs 06/07/19 09/16/22 History CPAP Machine #1 ea 10/10/19 12/18/21 Rx CPAP Supplies #1 ea 12/07/19 12/18/21 Rx pantoprazole 40 mg tablet,delayed 40 mg PO QAM 01/20/21 09/16/22 History release (Protonix) acetaminophen 325 mg tablet 1,000 mg PO ACHS 07/29/21 09/16/22 History (Tylenol) tramadol 50 mg tablet 50 mg PO Q12 PRN Pain 07/29/21 09/16/22 History methocarbamol 500 mg tablet 500 mg PO Q8H 12/12/21 09/16/22 History hydrocortisone 2.5 % topical cream 1 applic topical BID PRN Rash 08/18/22 09/16/22 History budesonide-formoterol HFA 80 1 puff inhalation Q12H #3 Inhalers 08/25/22 09/16/22 Rx mcg-4.5 mcg/actuation aerosol inhaler (Symbicort) rivaroxaban 20 mg tablet (Xarelto) 20 mg PO PM #30 tabs 08/25/22 09/16/22 Rx benzonatate 100 mg capsule 200 mg PO DIRECTED PRN Cough 09/16/22 09/16/22 History gabapentin 800 mg tablet 800 mg PO TID 09/16/22 09/16/22 History Past Med/Surg History Medical History (Updated 09/16/22 @ 17:54 by Lenny Siegel MD) Asthma WELL CONTROLLED PER PT Atrial fibrillation Xarelto > FOLLOWS DR. DILL > NO PACER> last visit 2019 Chronic back pain Environmental allergies History of anesthesia reaction states hard for him to come out of it History of COVID-19 11/24/20- congestion, cough, fatigue, abdominal pain, elevated LFTs; still with abdominal pain 12/2021 cough and sinus infection, no hospitalization, no current issues History of diverticulitis IBS (irritable bowel syndrome) Lumbar radiculopathy On anticoagulant therapy xarelto CARROLL (obstructive sleep apnea) CPAP Osteoarthritis PFO (patent foramen ovale) no issues per pt LETICIA approx 2 yrs ago Transient ischemic attack (TIA) JANUARY 2019 /Apr 2020 (NO CURRENT PROBLEMS or RESIDUAL EFFECTS) Surgical History History of bowel resection WITH COLOSTOMY/REVERSAL 2015 History of cholecystectomy History of colonoscopy History of colostomy reversal History of discectomy LUMBAR x2 History of endoscopic sinus surgery History of esophagogastroduodenoscopy (EGD) History of tooth extraction S/P epidural steroid injection Strabismus REPAIRED Family History Brother Family history of diabetes mellitus Father , Age 70 Kidney disease Leukemia Mother , Age 78 COPD (chronic obstructive pulmonary disease) Lung cancer Stroke Other TIA (transient ischemic attack) Social History Smoking Status: Never smoker Second Hand Exposure: No; Hx Alcohol Use: No Hx Substance Use: No Preferred Language: Tongan Communication Ability: Effective 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 Beliefs That Will Affect Care: None marital status: Current Living Situation: Spouse Feels Safe at Home: Yes Assistive Devices: CPAP and Glasses Review of Systems Review of Systems: Moderate distress and fatigue no headache, no visual changes no speech or swallowing issues Some rib and right-sided chest pain pleuritic and point tender not pressure in quality no shortness of breath, cough or wheezes no abdominal pain, nausea or vomiting, diarrhea or constipation no dysuria, hematuria or frequency Focal right leg pain mostly the knee and ankle on the lateral side Chronic low back pain, without CVA tenderness or radicular pain Significant bruising to his right lower leg no focal signs of weakness or numbness or altered sensation no complaints of anxiety or depression.. Physical Exam Physical Exam: The patient appeared well nourished and normally developed. Vital signs as documented. Head exam is normocephalic atraumatic Neck is without JVD, thyromegaly, or carotid bruits. Lungs are clear to auscultation, no focal loss of breath sounds Cardiac exam, Rhythm is regular.. No murmurs, rubs or gallops. Abdominal exam reveals normal bowel sounds, soft non tender, no masses Right leg is 2+ edema from the distal thigh to the foot there is ecchymosis in various stages of healing surrounding his knee and ankle. His ankle is more turning purple and green he has intact pulses and sensation to this leg there is no tightness to be concern for compartmental syndrome and I do not believe is in the appropriate location for this is a seems mostly joint related Neurologic exam is alert and oriented, no focal loss of strength or sensation Skin is with bruises Psychologically is without concerns for anxiety or depression.. Results & Data Results & Data ([facility]) Vital Signs (Past 12 Hours) Vital Signs Temp Pulse Pulse Resp BP BP Pulse Ox 09/16/22 16:23 70 22 150/76 H 97 09/16/22 13:10 99.0 F 89 18 153/92 H 97 O2 Del Method 09/16/22 16:23 Room Air 09/16/22 13:10 Room Air Diagnostic Findings Venous Doppler Study 09/16/22 13:12 US venous doppler LE RT CLINICAL HISTORY: Right leg pain,swelling recent injury TECHNIQUE: Right lower extremity real-time compression venous ultrasound with Color Doppler imaging. Utilizing real-time ultrasonic imaging multiple real time high-resolution ultrasonic images with compression and noncompression maneuvers of the deep venous system in addition to color doppler imaging were performed from the common femoral vein through the proximal calf veins. COMPARISON: None available at the time of this dictation. FINDINGS: Currently there is normal compressibility of the deep venous system from the common femoral vein through the proximal calf veins. No superficial venous thrombosis is identified. Impression: No evidence of deep venous thrombus. ACT 112: Negative or not required by law. Electronically signed by: Jose A Tracey M.D. 09/16/2022 4:25 PM Knee X-Ray 09/16/22 13:13 XR knee RT 3V HISTORY: 61 years-old Male Right knee pain, fall last week acute right knee pain status post fall COMPARISON: Right knee radiographs 09/08/2022 TECHNIQUE: 3 views of the right knee FINDINGS: Mild diffuse soft tissue swelling. Mild tricompartmental osteoarthritis of the right knee without acute fracture, dislocation or osseous erosion. Soft tissue swelling within the soft tissues superficial to the patellar tendon and proximal tibial tuberosity redemonstrated. IMPRESSION: 1. No acute fracture or dislocation identified. 2. Anterior soft tissue swelling redemonstrated. ACT 112: Negative or not required by law. The above report was generated using voice recognition software. It may contain grammatical, syntax or spelling errors. Electronically signed by: Doni Vasquez M.D. 09/16/2022 1:[address] 09/16/22 14:37 CT knee RT wo con HISTORY: 61 years-old Male Worsening R knee pain s/p fall acute right knee pain status post fall COMPARISON: Right knee radiographs 09/16/2022, 09/08/2022 TECHNIQUE: Multiple axial CT images of the right knee were obtained without the use of IV contrast. A dose lowering technique was used consistent with the principals of ALARA. FINDINGS: Small joint effusion. Moderate subcutaneous edema is most pronounced anteriorly. Pretibial subcutaneous hematoma, 4.5 x 2.1 x 5.5 cm. Ligaments and tendons are not well evaluated by CT technique. Medial varicosities are noted. Mild to moderate medial and patellofemoral with moderate moderate lateral compartment osteoarthritis. Air is noted within the lateral compartment which is likely on a degenerative basis. No acute fracture, dislocation, osseous erosion or intra-articular loose body. IMPRESSION: 1. No acute fracture or dislocation. 2. Tricompartmental osteoarthritis. 3. Nonspecific subcutaneous edema of the knee with 5.5 cm pretibial subcutaneous hematoma. ACT 112: Negative or not required by law. The above report was generated using voice recognition software. It may contain grammatical, syntax or spelling errors. Electronically signed by: Doni Vasquez M.D. 09/16/2022 4:27 PM Tibia/Fibula X-Ray 09/16/22 14:38 XR tibia fibula RT 2V HISTORY: 61 years-old Male Worsening R leg pain . Acute pain of the right lower extremity COMPARISON: Right knee radiographs of same day TECHNIQUE: 2 views of the right tibia and fibula FINDINGS: Osteoarthritis of the knee and ankle. Diffuse soft tissue swelling. No acute fracture, dislocation or opaque foreign body identified. Degenerative spurring of the calcaneus. IMPRESSION: Soft tissue swelling without acute fracture or dislocation identi fied. ACT 112: Negative or not required by law. The above report was generated using voice recognition software. It may contain grammatical, syntax or spelling errors. Electronically signed by: Doni Vasquez M.D. 09/16/2022 3:47 PM PG Care Time/CCT Total # of Minutes Spent Total Time Spent with Patient: Total time spent is greater than 50% in coordination of care (as documented) at patient's floor/unit and/or counseling patient: Coding Level of Care Code INT OBSERVATION CARE 50M LVL 2 Diagnoses Contusion of right leg S80.11XA Encounter type: initial encounter CARROLL (obstructive sleep apnea) G47.33 Atrial fibrillation I48.91 Asthma J45.909 (1) Contusion of right leg Encounter type: initial encounter Qualified Code(s): S80.11XA - Contusion of right lower leg, initial encounter
--- NOTE | 2022-09-16 20:02 | Orthopedic Consultation ---
Date of Consultation September 16, 2022 Assessment & Plan (1) Contusion of right leg: IMPRESSION: RLE pain and swelling likely secondarily to contusion/hematoma on Xarelto versus Complex Regional Pain Syndrome. Acute Goals: decrease pain. PLAN: Patient has been admitted to the hospitalist service. Resume diet. Continue pain control. PT/OT WBAT with walker or crutches. RICE Will continue to follow while in hospital. Present on Admission?: Yes History of Present Illness Reason for Consultation: RLE Swelling Requesting Physician: Negrito Gilbert History of Present Illness 61 year old male on anti-coagulants fell at work 09/08/22. He went to [facility] and his symptoms have worsened over the last 2-3 days with difficulty standing and increased pain, swelling, and bruising. I was consulted for RLE pain and swelling as the patient follows in my office with Dr. Shipman and Dr. Munson. Allergies Allergy/AdvReac Type Severity Reaction Status Date / Time amoxicillin Allergy Intermediate RASH,TOLERATED Verified 08/24/22 07:35 ZOSYN 01/22/16 ADM. animal dander Allergy Intermediate Sneezing Verified 08/24/22 07:35 clavulanic acid Allergy Intermediate RASH Verified 08/24/22 07:35 tree and shrub pollen Allergy Mild Sneezing Verified 08/24/22 07:35 clindamycin AdvReac Mild STOMACH Verified 08/24/22 07:35 CRAMPS hydrocodone AdvReac Mild DIZZY, Verified 08/24/22 07:35 NAUSEA oxycodone [From OxyContin] AdvReac Mild does not Verified 08/24/22 07:35 tolerate spray on adhesive AdvReac Intermediate Rash Uncoded 08/24/22 07:35 Home Medications Medication Instructions Recorded Confirmed Type calcium carbonate 500 mg-vitamin 1 tab PO BID 07/19/18 09/16/22 History D3 5 mcg (200 unit) tablet (Calcium 500 + D) albuterol sulfate 90 mcg/actuation 2 puff inhalation QID PRN Wheezing 02/15/19 09/16/22 History aerosol inhaler cholecalciferol (vitamin D3) 25 1,000 units PO QAM 04/21/19 09/16/22 History mcg (1,000 unit) capsule cetirizine 10 mg tablet 10 mg PO QAM #90 tabs 06/07/19 09/16/22 History CPAP Machine #1 ea 10/10/19 12/18/21 Rx CPAP Supplies #1 ea 12/07/19 12/18/21 Rx pantoprazole 40 mg tablet,delayed 40 mg PO QAM 01/20/21 09/16/22 History release (Protonix) acetaminophen 325 mg tablet 1,000 mg PO ACHS 07/29/21 09/16/22 History (Tylenol) tramadol 50 mg tablet 50 mg PO Q12 PRN Pain 07/29/21 09/16/22 History methocarbamol 500 mg tablet 500 mg PO Q8H 12/12/21 09/16/22 History hydrocortisone 2.5 % topical cream 1 applic topical BID PRN Rash 08/18/22 09/16/22 History budesonide-formoterol HFA 80 1 puff inhalation Q12H #3 Inhalers 08/25/22 09/16/22 Rx mcg-4.5 mcg/actuation aerosol inhaler (Symbicort) rivaroxaban 20 mg tablet (Xarelto) 20 mg PO PM #30 tabs 08/25/22 09/16/22 Rx benzonatate 100 mg capsule 200 mg PO DIRECTED PRN Cough 09/16/22 09/16/22 History gabapentin 800 mg tablet 800 mg PO TID 09/16/22 09/16/22 History Patient History Medical History Asthma WELL CONTROLLED PER PT Atrial fibrillation Xarelto > FOLLOWS DR. DILL > NO PACER> last visit 2019 Chronic back pain Environmental allergies History of anesthesia reaction states hard for him to come out of it History of COVID-19 11/24/20- congestion, cough, fatigue, abdominal pain, elevated LFTs; still with abdominal pain 12/2021 cough and sinus infection, no hospitalization, no current issues History of diverticulitis IBS (irritable bowel syndrome) Lumbar radiculopathy On anticoagulant therapy xarelto CARROLL (obstructive sleep apnea) CPAP Osteoarthritis PFO (patent foramen ovale) no issues per pt LETICIA approx 2 yrs ago Transient ischemic attack (TIA) JANUARY 2019 /Apr 2020 (NO CURRENT PROBLEMS or RESIDUAL EFFECTS) Surgical History History of bowel resection WITH COLOSTOMY/REVERSAL 2015 History of cholecystectomy History of colonoscopy History of colostomy reversal History of discectomy LUMBAR x2 History of endoscopic sinus surgery History of esophagogastroduodenoscopy (EGD) History of tooth extraction S/P epidural steroid injection Strabismus REPAIRED Family History Brother Family history of diabetes mellitus Father , Age 70 Kidney disease Leukemia Mother , Age 78 COPD (chronic obstructive pulmonary disease) Lung cancer Stroke Other TIA (transient ischemic attack) Social History Smoking Status: Never smoker Second Hand Exposure: No; Hx Alcohol Use: No Hx Substance Use: No Preferred Language: Sinhala Communication Ability: Effective Construction 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 Sensation to light touch intact distally. Motor to gastroc soleus, TA, EHL 5/5. +swelling pre-patella and lower leg to foot. + bruising posterior thigh, anterior knee, calf and foot. - knee effusion. Significant diffuse tenderness to palpation about the knee and calf. Knee ROM 0-110 degrees. Unable to assess ligament secondarily to pain/guarding. No evidence of infection. Results & Data ([facility]) Vital Signs (Past 12 Hours) Vital Signs Temp Pulse Pulse Resp BP BP Pulse Ox 09/16/22 19:42 09/16/22 19:26 36.9 C 74 18 133/72 96 09/16/22 16:23 70 22 150/76 H 97 09/16/22 13:10 37.2 C 89 18 153/92 H 97 O2 Del Method 09/16/22 19:42 Room Air 09/16/22 19:26 Room Air 09/16/22 16:23 Room Air 09/16/22 13:10 Room Air Laboratory Results Laboratory Results WBC 6.40 K/ul (4.8-10.8) 09/16/22 14:20 RBC 4.38 M/uL (4.63-6.08) L 09/16/22 14:20 Hgb 14.2 g/dl (14.0-18.0) 09/16/22 14:20 Hct 41.8 % (40.1-51.0) 09/16/22 14:20 MCV 95.4 fL (80.0-100.0) 09/16/22 14:20 MCH 32.4 pg (25.0-34.0) 09/16/22 14:20 MCHC 34.0 g/dL (32.0-36.0) 09/16/22 14:20 RDW Std Deviation 47.2 fL (36.4-46.3) H 09/16/22 14:20 RDW Coeff of Violeta 13.3 % (11.5-14.5) 09/16/22 14:20 Plt Count 184 K/uL (130-400) 09/16/22 14:20 MPV 9.5 fL (9.4-12.4) 09/16/22 14:20 Immature Gran % (Auto) 0.3 % 09/16/22 14:20 Neut % (Auto) 68.5 % 09/16/22 14:20 Lymph % (Auto) 17.0 % 09/16/22 14:20 Payette % (Auto) 10.9 % 09/16/22 14:20 Eos % (Auto) 2.5 % 09/16/22 14:20 Baso % (Auto) 0.8 % 09/16/22 14:20 Neut # (Auto) 4.38 K/uL (1.4-6.5) 09/16/22 14:20 Lymph # (Auto) 1.09 K/uL (1.2-3.4) L 09/16/22 14:20 Payette # (Auto) 0.70 K/uL (0.24-0.82) 09/16/22 14:20 Eos # (Auto) 0.16 K/uL (0-0.50) 09/16/22 14:20 Baso # (Auto) 0.05 K/uL (0-0.2) 09/16/22 14:20 Immature Gran # (Auto) 0.02 K/uL (0.00-0.02) 09/16/22 14:20 PT 10.9 Seconds (9.0-12.0) 09/16/22 14:20 INR 1.0 (0.9-1.1) 09/16/22 14:20 APTT 31.6 Seconds (21.0-31.0) H 09/16/22 14:20 PTT Ratio 1.1 09/16/22 14:20 Sodium 140 mmol/L (136-145) 09/16/22 14:20 Potassium 4.0 mmol/L (3.5-5.1) 09/16/22 14:20 Chloride 108 mmol/L (98-107) H 09/16/22 14:20 Carbon Dioxide 28 mmol/L (21-32) 09/16/22 14:20 Anion Gap 4 (3-11) 09/16/22 14:20 BUN 28 mg/dl (6-23) H 09/16/22 14:20 Creatinine 0.83 mg/dl (0.6-1.4) 09/16/22 14:20 Est Cr Clr Drug Dosing 130.3 ml/min 09/16/22 14:20 Est GFR ( Amer) 111.6 ml/min 09/16/22 14:20 Est GFR (Non-Af Amer) 96.3 ml/min 09/16/22 14:20 BUN/Creatinine Ratio 33.7 (10-20) H 09/16/22 14:20 Glucose 73 mg/dl (70-99(Fasting)) 09/16/22 14:20 Lactate 0.7 mmol/L (0.4-2.0) 09/16/22 15:20 Calcium 8.7 mg/dl (8.5-10.1) 09/16/22 14:20 Total Bilirubin 0.9 mg/dl (0.2-1.0) 09/16/22 14:20 AST 26 U/L (13-39) 09/16/22 14:20 ALT 19 U/L (7-52) 09/16/22 14:20 Alkaline Phosphatase 61 U/L (34-104) 09/16/22 14:20 Total Protein 7.3 gm/dl (6.0-8.3) 09/16/22 14:20 Albumin 4.1 gm/dl (3.4-5.0) 09/16/22 14:20 Globulin 3.2 gm/dl (2.5-4.0) 09/16/22 14:20 Albumin/Globulin Ratio 1.3 (0.9-2) 09/16/22 14:20 Procalcitonin < 0.05 ng/ml (0-0.5) 09/16/22 14:20 SARS-CoV-2, RNA, NAAT NEGATIVE (NEGATIVE) 09/16/22 17:50 Impressions Venous Doppler Study 09/16/22 13:12 US venous doppler LE RT CLINICAL HISTORY: Right leg pain,swelling recent injury TECHNIQUE: Right lower extremity real-time compression venous ultrasound with Color Doppler imaging. Utilizing real-time ultrasonic imaging multiple real time high-resolution ultrasonic images with compression and noncompression maneuvers of the deep venous system in addition to color doppler imaging were performed from the common femoral vein through the proximal calf veins. COMPARISON: None available at the time of this dictation. FINDINGS: Currently there is normal compressibility of the deep venous system from the common femoral vein through the proximal calf veins. No superficial venous thrombosis is identified. Impression: No evidence of deep venous thrombus. ACT 112: Negative or not required by law. Electronically signed by: Jose A Tracey M.D. 09/16/2022 4:25 PM Knee X-Ray 09/16/22 13:13 XR knee RT 3V HISTORY: 61 years-old Male Right knee pain, fall last week acute right knee pain status post fall COMPARISON: Right knee radiographs 09/08/2022 TECHNIQUE: 3 views of the right knee FINDINGS: Mild diffuse soft tissue swelling. Mild tricompartmental osteoarthritis of the right knee without acute fracture, dislocation or osseous erosion. Soft tissue swelling within the soft tissues superficial to the patellar tendon and proximal tibial tuberosity redemonstrated. IMPRESSION: 1. No acute fracture or dislocation identified. 2. Anterior soft tissue swelling redemonstrated. ACT 112: Negative or not required by law. The above report was generated using voice recognition software. It may contain grammatical, syntax or spelling errors. Electronically signed by: Doni Vasquez M.D. 09/16/2022 1:[address] 09/16/22 14:37 CT knee RT wo con HISTORY: 61 years-old Male Worsening R knee pain s/p fall acute right knee pain status post fall COMPARISON: Right knee radiographs 09/16/2022, 09/08/2022 TECHNIQUE: Multiple axial CT images of the right knee were obtained without the use of IV contrast. A dose lowering technique was used consistent with the principals of ALARA. FINDINGS: Small joint effusion. Moderate subcutaneous edema is most pronounced anteriorly. Pretibial subcutaneous hematoma, 4.5 x 2.1 x 5.5 cm. Ligaments and tendons are not well evaluated by CT technique. Medial varicosities are noted. Mild to moderate medial and patellofemoral with moderate moderate lateral compartment osteoarthritis. Air is noted within the lateral compartment which is likely on a degenerative basis. No acute fracture, dislocation, osseous erosion or intra-articular loose body. IMPRESSION: 1. No acute fracture or dislocation. 2. Tricompartmental osteoarthritis. 3. Nonspecific subcutaneous edema of the knee with 5.5 cm pretibial subcutaneous hematoma. ACT 112: Negative or not required by law. The above report was generated using voice recognition software. It may contain grammatical, syntax or spelling errors. Electronically signed by: Doni Vasquez M.D. 09/16/2022 4:27 PM Tibia/Fibula X-Ray 09/16/22 14:38 XR tibia fibula RT 2V HISTORY: 61 years-old Male Worsening R leg pain . Acute pain of the right lower extremity COMPARISON: Right knee radiographs of same day TECHNIQUE: 2 views of the right tibia and fibula FINDINGS: Osteoarthritis of the knee and ankle. Diffuse soft tissue swelling. No acute fracture, dislocation or opaque foreign body identified. Degenerative spurring of the calcaneus. IMPRESSION: Soft tissue swelling without acute fracture or dislocation identified. ACT 112: Negative or not required by law. The above report was generated using voice recognition software. It may contain grammatical, syntax or spelling errors. Electronically signed by: Doni Vasquez M.D. 09/16/2022 3:47 PM (1) Contusion of right leg Encounter type: initial encounter Qualified Code(s): S80.11XA - Contusion of right lower leg, initial encounter
[2022-09-16] MEDS ORDERED: oxyCODONE HCL IR 5 MG TAB (IMMEDIATE RELEASE) PO PRN (20:07)
[2022-09-16] MEDS ORDERED: ALUMINUM/MAGNESIUM SUSP 30 ML UDC PO PRN (20:07)
[2022-09-16] MEDS ORDERED: ONDANSETRON INJ 2 MG/ML 2 ML VIAL IV PRN (20:07)
[2022-09-16] MEDS ORDERED: MoRPHine SULFATE 4 MG/ML 1 ML CARP\\VIAL IV PRN (20:07)
[2022-09-16] MEDS ORDERED: MoRPHine SULFATE 2 MG/ML CARP IV PRN (20:07)
[2022-09-16] MEDS ORDERED: ALBUTEROL HFA 8 GM INHALER INH PRN (20:07)
[2022-09-16] MEDS ORDERED: BUDESONIDE/FORMOTEROL FUMARATE 80/4.5 60 PUFFS/INHALER INH SCH (20:07)
[2022-09-16] MEDS ORDERED: GABAPENTIN 800 MG TAB PO SCH (21:00)
[2022-09-16] MEDS: CALCIUM 600MG + VIT D 400 IU TAB PO SCH (21:59)
[2022-09-16] MEDS: FLUTICASONE/VILANTEROL 100/25MCG 14 PUFFS/INHALER INH SCH (21:59)
[2022-09-16] MEDS: RIVAROXABAN 20 MG TAB PO SCH (22:00)
[2022-09-16] MEDS: METHOCARBAMOL 500 MG TABLET PO PRN (22:00)
[2022-09-16] MEDS: ACETAMINOPHEN 500 MG TAB PO SCH (22:01)
[2022-09-16] MEDS: GABAPENTIN 300 MG CAP PO SCH (22:02)
[2022-09-17] MEDS ORDERED: FLUTICASONE/VILANTEROL 100/25MCG 14 PUFFS/INHALER INH SCH (09:00)
--- NOTE | 2022-09-17 09:18 | Orthopedic Progress Note ---
Date of Service September 17, 2022 Assessment & Plan (1) Contusion of right leg: Plan: Patient continues to have right lower extremity pain, edema, and resolving ecchymosis that is consistent with contusion/hematoma secondary to use of Xarelto/Considering complex regional pain syndrome as well. Initial imaging with x-ray and CT was negative for any fracture of the knee he had imaging of the ankle that consist of an x-ray that was negative for any fracture. MRI of the right knee and ankle were reviewed, there is no acute ligamentous injury. There does appear to be a lateral meniscus tear likely old. There also appears to be a peroneal brevis split tear that is also chronic in nature. There is anterior prepatellar swelling and significant soft tissue swelling medially about the ankle. At this time recommending controlling pain as well as edema. Recommended Tubigrip sleeve for the right lower extremity, which was placed. Pain management deferred to medicine team. He may continue to use ice for comfort over the knee as well as the ankle as needed with a towel layer in between. Recommend continuing with PT/OT weightbearing as tolerated utilizing a walker or crutches per patient safety and comfort. Discussed with Dr. Gilbert. We will continue to follow patient while in the hospital. Present on Admission?: Yes Admission and Anticipated Discharge Date Admission Date: September 16, 2022 Supervising Physician Co-Signing Physician Notes I, Dr. Gilbert, saw and examined the patient with my PA and discussed the management with my PA. I reviewed my PAs note and agree with the documented findings and the plan of care I developed. Subjective Patient is a 61-year-old male who was seen bedside this morning. He is alert and oriented x3 answering questions appropriately. He is in good spirits. He states he has pain in the right lower extremity over the knee and ankle. He states the pain is 6 out of 10 and increases when he weightbears on the right lower extremity. He is not using any assistive device at this time. He states the bruising seems to be going down the whole leg. He denies any limitation with moving the knee or ankle however he states he has some pain with bending the knee. He denies any paresthesia in the leg besides his feet which has been ongoing. He denies hitting his head or any vision changes headaches or loss of consciousness with his fall on 09/08.. He states he had MRIs of his knee and ankle last night. Review of Systems Review of Systems: Please refer to HPI Physical Exam Physical Exam: General: Patient is alert and oriented x3 answering questions appropriately. He is not in any acute distress. Musculoskeletal/integumentary: Right lower extremity has moderate edema compared to the left lower extremity. Nonpitting. Resolving ecchymosis over thigh anterior leg posterior lower leg and surrounding ankle. Patient has some tenderness at the joint line on the right knee and over the lateral malleolus and medial malleolus. Patient is able to flex the knee to approximately 75 degrees and has some pain reported with this he is able to fully extend the knee. Ankle range of motion is equal to the left with pain reported with inversion on the right. No laxity appreciated with anterior and posterior drawer. Dorsal pedis pulses 3+. Right lower extremity is neurovascularly intact. Results & Data ([facility]) Vital Signs (Past 12 Hours) Vital Signs Temp Pulse Pulse Resp BP Pulse Ox O2 Del Method 09/17/22 07:26 36.7 C 68 16 117/73 96 Room Air 09/17/22 00:35 75 20 92 FiO2 09/17/22 07:26 09/17/22 00:35 21 Laboratory Results Laboratory Results WBC 6.40 K/ul (4.8-10.8) 09/16/22 14:20 RBC 4.38 M/uL (4.63-6.08) L 09/16/22 14:20 Hgb 14.2 g/dl (14.0-18.0) 09/16/22 14:20 Hct 41.8 % (40.1-51.0) 09/16/22 14:20 MCV 95.4 fL (80.0-100.0) 09/16/22 14:20 MCH 32.4 pg (25.0-34.0) 09/16/22 14:20 MCHC 34.0 g/dL (32.0-36.0) 09/16/22 14:20 RDW Std Deviation 47.2 fL (36.4-46.3) H 09/16/22 14:20 RDW Coeff of Violeta 13.3 % (11.5-14.5) 09/16/22 14:20 Plt Count 184 K/uL (130-400) 09/16/22 14:20 MPV 9.5 fL (9.4-12.4) 09/16/22 14:20 Immature Gran % (Auto) 0.3 % 09/16/22 14:20 Neut % (Auto) 68.5 % 09/16/22 14:20 Lymph % (Auto) 17.0 % 09/16/22 14:20 [place] % (Auto) 10.9 % 09/16/22 14:20 Eos % (Auto) 2.5 % 09/16/22 14:20 Baso % (Auto) 0.8 % 09/16/22 14:20 Neut # (Auto) 4.38 K/uL (1.4-6.5) 09/16/22 14:20 Lymph # (Auto) 1.09 K/uL (1.2-3.4) L 09/16/22 14:20 [place] # (Auto) 0.70 K/uL (0.24-0.82) 09/16/22 14:20 Eos # (Auto) 0.16 K/uL (0-0.50) 09/16/22 14:20 Baso # (Auto) 0.05 K/uL (0-0.2) 09/16/22 14:20 Immature Gran # (Auto) 0.02 K/uL (0.00-0.02) 09/16/22 14:20 PT 10.9 Seconds (9.0-12.0) 09/16/22 14:20 INR 1.0 (0.9-1.1) 09/16/22 14:20 APTT 31.6 Seconds (21.0-31.0) H 09/16/22 14:20 PTT Ratio 1.1 09/16/22 14:20 Sodium 140 mmol/L (136-145) 09/16/22 14:20 Potassium 4.0 mmol/L (3.5-5.1) 09/16/22 14:20 Chloride 108 mmol/L (98-107) H 09/16/22 14:20 Carbon Dioxide 28 mmol/L (21-32) 09/16/22 14:20 Anion Gap 4 (3-11) 09/16/22 14:20 BUN 28 mg/dl (6-23) H 09/16/22 14:20 Creatinine 0.83 mg/dl (0.6-1.4) 09/16/22 14:20 Est Cr Clr Drug Dosing 130.3 ml/min 09/16/22 14:20 Est GFR ( Amer) 111.6 ml/min 09/16/22 14:20 Est GFR (Non-Af Amer) 96.3 ml/min 09/16/22 14:20 BUN/Creatinine Ratio 33.7 (10-20) H 09/16/22 14:20 Glucose 73 mg/dl (70-99(Fasting)) 09/16/22 14:20 Lactate 0.7 mmol/L (0.4-2.0) 09/16/22 15:20 Calcium 8.7 mg/dl (8.5-10.1) 09/16/22 14:20 Total Bilirubin 0.9 mg/dl (0.2-1.0) 09/16/22 14:20 AST 26 U/L (13-39) 09/16/22 14:20 ALT 19 U/L (7-52) 09/16/22 14:20 Alkaline Phosphatase 61 U/L (34-104) 09/16/22 14:20 Total Protein 7.3 gm/dl (6.0-8.3) 09/16/22 14:20 Albumin 4.1 gm/dl (3.4-5.0) 09/16/22 14:20 Globulin 3.2 gm/dl (2.5-4.0) 09/16/22 14:20 Albumin/Globulin Ratio 1.3 (0.9-2) 09/16/22 14:20 Procalcitonin < 0.05 ng/ml (0-0.5) 09/16/22 14:20 SARS-CoV-2, RNA, NAAT NEGATIVE (NEGATIVE) 09/16/22 17:50 Impressions Ankle MRI 09/16/22 20:07 MR ankle RT wo con HISTORY: Fall. Right ankle pain. eval for ligamentous derangement TECHNIQUE: Multiplanar multisequence MRI of the right ankle was performed without contrast according to standard departmental protocol. COMPARISON STUDY: Right tibia/fibula 09/16/2022. FINDINGS: There is extensive subcutaneous edema within the ankle most pronounced medially. Focal split tear within the proximal peroneus brevis tendon. There is thickening and increased T2 signal within the posterior tibial tendon consistent with a tendinopathy. The extensor tendons are intact. Slight increased T2 signal within the anterior Achilles tendon consistent with a mild tendinosis. The plantar fascia is intact. No fracture or dislocation within the right ankle. The anterior talofibular ligament is not well visualized and likely chronically torn. The remaining lateral stabilizing ligaments are intact. No significant abnormality within the medial stabilizing ligaments. The sinus tarsi is maintained. Mild cartilage space narrowing at the tibiotalar joint. No significant joint effusion. Mild subchondral cystic change/edema at the os trigonum. This is likely chronic. IMPRESSION: 1. No acute fracture or dislocation within the right ankle. 2. Extensive subcutaneous edema within the right ankle most pronounced medially. 3. Split tear involving the proximal peroneus brevis tendon. 4. Posterior tibial tendinopathy. 5. Mild Achilles tendinosis. 6. Chronic tear of the anterior talofibular ligament. ACT 112: Negative or not required by law. Electronically signed by: Elvis Yu M.D. 09/17/2022 11:24 AM Knee MRI 09/16/22 20:07 MR knee RT wo con CLINICAL HISTORY: eval for ligamentous derangement TECHNIQUE: Multiplanar, multisequence images of the right knee were obtained. Comparison: Comparison is made to CT of the right knee 09/08/2022 FINDINGS: Exam is limited by patient motion. The biceps femoris tendon, quadriceps mechanism and patellar tendons are intact. The medial and lateral collateral ligaments are intact. The anterior and posterior cruciate ligaments are intact. There is a lateral meniscus posterior horn radial tear. There is near complete chondromalacia in the lateral compartment of the knee. The patellofemoral cartilage is within normal limits. There is no joint effusion. There is normal marrow signal. There is soft tissue swelling in the infrapatellar region compatible with previously noted hematoma. Diffuse soft tissue edema is seen. IMPRESSION: 1. Radial tear of the lateral meniscus posterior horn with associated severe chondromalacia. The cruciate ligaments and medial meniscus are intact. 2. Soft tissue swelling and hematoma in the infrapatellar region. ACT 112: Negative or not required by law. Electronically signed by: Jose A Tracey M.D. 09/17/2022 10:46 AM Diagnostic Findings Venous Doppler Study 09/16/22 13:12 US venous doppler LE RT CLINICAL HISTORY: Right leg pain,swelling recent injury TECHNIQUE: Right lower extremity real-time compression venous ultrasound with Color Doppler imaging. Utilizing real-time ultrasonic imaging multiple real time high-resolution ultrasonic images with compression and noncompression maneuvers of the deep venous system in addition to color doppler imaging were performed from the common femoral vein through the proximal calf veins. COMPARISON: None available at the time of this dictation. FINDINGS: Currently there is normal compressibility of the deep venous system from the common femoral vein through the proximal calf veins. No superficial venous thrombosis is identified. Impression: No evidence of deep venous thrombus. ACT 112: Negative or not required by law. Electronically signed by: Jose A Tracey M.D. 09/16/2022 4:25 PM Knee X-Ray 09/16/22 13:13 XR knee RT 3V HISTORY: 61 years-old Male Right knee pain, fall last week acute right knee pain status post fall COMPARISON: Right knee radiographs 09/08/2022 TECHNIQUE: 3 views of the right knee FINDINGS: Mild diffuse soft tissue swelling. Mild tricompartmental osteoarthritis of the right knee without acute fracture, dislocation or osseous erosion. Soft tissue swelling within the soft tissues superficial to the patellar tendon and proximal tibial tuberosity redemonstrated. IMPRESSION: 1. No acute fracture or dislocation identified. 2. Anterior soft tissue swelling redemonstrated. ACT 112: Negative or not required by law. The above report was generated using voice recognition software. It may contain grammatical, syntax or spelling errors. Electronically signed by: Doni Vasquez M.D. 09/16/2022 1:[address] 09/16/22 14:37 CT knee RT wo con HISTORY: 61 years-old Male Worsening R knee pain s/p fall acute right knee pain status post fall COMPARISON: Right knee radiographs 09/16/2022, 09/08/2022 TECHNIQUE: Multiple axial CT images of the right knee were obtained without the use of IV contrast. A dose lowering technique was used consistent with the principals of ALARA. FINDINGS: Small joint effusion. Moderate subcutaneous edema is most pronounced anteriorly. Pretibial subcutaneous hematoma, 4.5 x 2.1 x 5.5 cm. Ligaments and tendons are not well evaluated by CT technique. Medial varicosities are noted. Mild to moderate medial and patellofemoral with moderate moderate lateral compartment osteoarthritis. Air is noted within the lateral compartment which is likely on a degenerative basis. No acute fracture, dislocation, osseous erosion or intra-articular loose body. IMPRESSION: 1. No acute fracture or dislocation. 2. Tricompartmental osteoarthritis. 3. Nonspecific subcutaneous edema of the knee with 5.5 cm pretibial subcutaneous hematoma. ACT 112: Negative or not required by law. The above report was generated using voice recognition software. It may contain grammatical, syntax or spelling errors. Electronically signed by: Doni Vasquez M.D. 09/16/2022 4:27 PM Tibia/Fibula X-Ray 09/16/22 14:38 XR tibia fibula RT 2V HISTORY: 61 years-old Male Worsening R leg pain . Acute pain of the right lower extremity COMPARISON: Right knee radiographs of same day TECHNIQUE: 2 views of the right tibia and fibula FINDINGS: Osteoarthritis of the knee and ankle. Diffuse soft tissue swelling. No acute fracture, dislocation or opaque foreign body identified. Degenerative spurring of the calcaneus. IMPRESSION: Soft tissue swelling without acute fracture or dislocation identified. ACT 112: Negative or not required by law. The above report was generated using voice recognition software. It may contain grammatical, syntax or spelling errors. Electronically signed by: Doni Vasquez M.D. 09/16/2022 3:47 PM (1) Contusion of right leg Encounter type: initial encounter Qualified Code(s): S80.11XA - Contusion of right lower leg, initial encounter
[2022-09-17] MEDS: CHOLECALCIFEROL 1,000 UNITS 25 MCG TAB PO SCH (09:32)
[2022-09-17] MEDS: ACETAMINOPHEN 500 MG TAB PO SCH ×3 (09:33→20:25)
[2022-09-17] MEDS: CETIRIZINE HCL 10 MG TABLET PO SCH (09:33)
[2022-09-17] MEDS: GABAPENTIN 300 MG CAP PO SCH ×3 (09:33→20:24)
[2022-09-17] MEDS: PANTOprazole 40 MG TAB PO SCH (09:33)
[2022-09-17] MEDS: CALCIUM 600MG + VIT D 400 IU TAB PO SCH ×2 (09:34→20:23)
[2022-09-17] MEDS: FLUTICASONE/VILANTEROL 100/25MCG 14 PUFFS/INHALER INH SCH (09:34)
--- NOTE | 2022-09-17 10:47 | Magnetic Resonance Report ---
MR knee RT wo con CLINICAL HISTORY: eval for ligamentous derangement TECHNIQUE: Multiplanar, multisequence images of the right knee were obtained. Comparison: Comparison is made to CT of the right knee 09/08/2022 FINDINGS: Exam is limited by patient motion. The biceps femoris tendon, quadriceps mechanism and patellar tendo ns are intact. The medial and lateral collateral ligaments are intact. The anterior and posterior cru ciate ligaments are intact. There is a lateral meniscus posterior horn radial tear. There is near com plete chondromalacia in the lateral compartment of the knee. The patellofemoral cartilage is within n ormal limits. There is no joint effusion. There is normal marrow signal. There is soft tissue swellin g in the infrapatellar region compatible with previously noted hematoma. Diffuse soft tissue edema is seen. IMPRESSION: 1. Radial tear of the lateral meniscus posterior horn with associated severe chondromalacia. The cru ciate ligaments and medial meniscus are intact. 2. Soft tissue swelling and hematoma in the infrapatellar region. ACT 112: Negative or not required by law. Electronically signed by: Jose A Tracey M.D. 09/17/2022 10:46 AM
--- NOTE | 2022-09-17 11:26 | Magnetic Resonance Report ---
MR ankle RT wo con HISTORY: Fall. Right ankle pain. eval for ligamentous derangement TECHNIQUE: Multiplanar multisequence MRI of the right ankle was performed without contrast according to standard departmental protocol. COMPARISON STUDY: Right tibia/fibula 09/16/2022. FINDINGS: There is extensive subcutaneous edema within the ankle most pronounced medially. Focal spli t tear within the proximal peroneus brevis tendon. There is thickening and increased T2 signal within the posterior tibial tendon consistent with a tendinopathy. The extensor tendons are intact. Slight increased T2 signal within the anterior Achilles tendon consistent with a mild tendinosis. The planta r fascia is intact. No fracture or dislocation within the right ankle. The anterior talofibular ligam ent is not well visualized and likely chronically torn. The remaining lateral stabilizing ligaments a re intact. No significant abnormality within the medial stabilizing ligaments. The sinus tarsi is codi ntained. Mild cartilage space narrowing at the tibiotalar joint. No significant joint effusion. Mild subchondral cystic change/edema at the os trigonum. This is likely chronic. IMPRESSION: 1. No acute fracture or dislocation within the right ankle. 2. Extensive subcutaneous edema within the right ankle most pronounced medially. 3. Split tear involving the proximal peroneus brevis tendon. 4. Posterior tibial tendinopathy. 5. Mild Achilles tendinosis. 6. Chronic tear of the anterior talofibular ligament. ACT 112: Negative or not required by law. Electronically signed by: Elvis Yu M.D. 09/17/2022 11:24 AM
--- NOTE | 2022-09-17 12:07 | Hospitalist Progress Note ---
Date of Service September 17, 2022 Assessment & Plan (1) Contusion of right leg: Plan: Ortho following - appreciate their input MRI Knee 1. Radial tear of the lateral meniscus posterior horn with associated severe chondromalacia. The cruciate ligaments and medial meniscus are intact. 2. Soft tissue swelling and hematoma in the infrapatellar region. MRI ankle 1. No acute fracture or dislocation within the right ankle. 2. Extensive subcutaneous edema within the right ankle most pronounced medially. 3. Split tear involving the proximal peroneus brevis tendon. 4. Posterior tibial tendinopathy. 5. Mild Achilles tendinosis. 6. Chronic tear of the anterior talofibular ligament. Doppler - No evidence of DVT No NSAIDs while on xarelto Continue Tramadol q 8 hour as needed for pain Continue Morphine as needed for severe pain To have PT evaluation (2) Old tear of lateral meniscus of right knee: Plan: Per ortho note, the lateral meniscus tear appears old and also appears to be a peroneal brevis split tear that is also chronic in nature. Continue rest, ice, compression and elevation PT/OT evaluation and weightbearing as tolerated utilizing a walker or crutches per patient safety Will need PT when discharged Possibly discharge tomorrow depending on PT/OT evaluation and recommendations (3) CARROLL (obstructive sleep apnea): Plan: We will offer CPAP at bedtime for this patient (4) Atrial fibrillation: Plan: Continue xarelto for thrombosis prophylaxis, no rate controlling agents chronicially (5) Asthma: Plan: Continue Budesonide formoterol for asthma which is currently stable and not in acute exacerbation Plan Continue Pantoprazole for GERD Continue Gabapentin for chronic pain control for his chronic lumbar back pain Admission and Anticipated Discharge Date Admission Date: September 16, 2022 Subjective Patient is awake sitting up in bed in NAD. He states that his swelling is starting to improve. He had MRI and ortho placed an ankle brace and compression sleeve on patient. He is anxious to be discharged to home. He has not had PT evaluation yet. Review of Systems Constitutional: no fever, no chills and no anorexia Respiratory: no cough, no chest congestion and no dyspnea Cardiovascular: + edema; no chest pain, no dyspnea and no syncope Gastrointestinal: no abdominal pain, no nausea, no vomiting and no melena Musculoskeletal: + back pain, + joint pain, + swelling, + limited range of motion and + problem reported; no neck pain Integumentary: no rash, no lesions and no new lesions Psychiatric: no depression, no anxiety and no confusion Physical Exam Constitutional: WD/WN, vitals as above Neck: trachea midline, no thyromegaly Respiratory: normal respiratory effort, lungs clear to auscultation Cardiovascular: RRR, no murmur, no edema Gastrointestinal (Abdomen): normal bowel sounds, soft, nontender, no hepatosplenomegaly Musculoskeletal: compression sleeve right lower leg ankle brace right ankle in place. Skin: eccymoses right ankle/foot Psychiatric: A+Ox3, euthymic affect Results & Data Results & Data ([facility]) Vital Signs (Past 12 Hours) Vital Signs Temp Pulse Pulse Resp BP Pulse Ox O2 Del Method 09/17/22 07:26 36.7 C 68 16 117/73 96 Room Air 09/17/22 00:35 75 20 92 FiO2 09/17/22 07:26 09/17/22 00:35 21 Laboratory Results Abnormal lab results 09/16/22 09/16/22 09/16/22 Range/Units 14:20 14:20 14:20 RBC 4.38 L (4.63-6.08) M/uL RDW Std Deviation 47.2 H (36.4-46.3) fL Lymph # (Auto) 1.09 L (1.2-3.4) K/uL APTT 31.6 H (21.0-31.0) Seconds Chloride 108 H (98-107) mmol/L BUN 28 H (6-23) mg/dl BUN/Creatinine Ratio 33.7 H (10-20) Diagnostic Findings Venous Doppler Study 09/16/22 13:12 US venous doppler LE RT CLINICAL HISTORY: Right leg pain,swelling recent injury TECHNIQUE: Right lower extremity real-time compression venous ultrasound with Color Doppler imaging. Utilizing real-time ultrasonic imaging multiple real time high-resolution ultrasonic images with compression and noncompression maneuvers of the deep venous system in addition to color doppler imaging were performed from the common femoral vein through the proximal calf veins. COMPARISON: None available at the time of this dictation. FINDINGS: Currently there is normal compressibility of the deep venous system from the common femoral vein through the proximal calf veins. No superficial venous thrombosis is identified. Impression: No evidence of deep venous thrombus. ACT 112: Negative or not required by law. Electronically signed by: Jose A Tracey M.D. 09/16/2022 4:25 PM Knee X-Ray 09/16/22 13:13 XR knee RT 3V HISTORY: 61 years-old Male Right knee pain, fall last week acute right knee pain status post fall COMPARISON: Right knee radiographs 09/08/2022 TECHNIQUE: 3 views of the right knee FINDINGS: Mild diffuse soft tissue swelling. Mild tricompartmental osteoarthritis of the right knee without acute fracture, dislocation or osseous erosion. Soft tissue swelling within the soft tissues superficial to the patellar tendon and proximal tibial tuberosity redemonstrated. IMPRESSION: 1. No acute fracture or dislocation identified. 2. Anterior soft tissue swelling redemonstrated. ACT 112: Negative or not required by law. The above report was generated using voice recognition software. It may contain grammatical, syntax or spelling errors. Electronically signed by: Doni Vasquez M.D. 09/16/2022 1:[address] 09/16/22 14:37 CT knee RT wo con HISTORY: 61 years-old Male Worsening R knee pain s/p fall acute right knee pain status post fall COMPARISON: Right knee radiographs 09/16/2022, 09/08/2022 TECHNIQUE: Multiple axial CT images of the right knee were obtained without the use of IV contrast. A dose lowering technique was used consistent with the principals of ALARA. FINDINGS: Small joint effusion. Moderate subcutaneous edema is most pronounced anteriorly. Pretibial subcutaneous hematoma, 4.5 x 2.1 x 5.5 cm. Ligaments and tendons are not well evaluated by CT technique. Medial varicosities are noted. Mild to moderate medial and patellofemoral with moderate moderate lateral compartment osteoarthritis. Air is noted within the lateral compartment which is likely on a degenerative basis. No acute fracture, dislocation, osseous erosion or intra-articular loose body. IMPRESSION: 1. No acute fracture or dislocation. 2. Tricompartmental osteoarthritis. 3. Nonspecific subcutaneous edema of the knee with 5.5 cm pretibial subcutaneous hematoma. ACT 112: Negative or not required by law. The above report was generated using voice recognition software. It may contain grammatical, syntax or spelling errors. Electronically signed by: Doni Vasquez M.D. 09/16/2022 4:27 PM Tibia/Fibula X-Ray 09/16/22 14:38 XR tibia fibula RT 2V HISTORY: 61 years-old Male Worsening R leg pain . Acute pain of the right lower extremity COMPARISON: Right knee radiographs of same day TECHNIQUE: 2 views of the right tibia and fibula FINDINGS: Osteoarthritis of the knee and ankle. Diffuse soft tissue swelling. No acute fracture, dislocation or opaque foreign body identified. Degenerative spurring of the calcaneus. IMPRESSION: Soft tissue swelling without acute fracture or dislocation identified. ACT 112: Negative or not required by law. The above report was generated using voice recognition software. It may contain grammatical, syntax or spelling errors. Electronically signed by: Doni Vasquez M.D. 09/16/2022 3:47 PM Ankle MRI 09/16/22 20:07 MR ankle RT wo con HISTORY: Fall. Right ankle pain. eval for ligamentous derangement TECHNIQUE: Multiplanar multisequence MRI of the right ankle was performed without contrast according to standard departmental protocol. COMPARISON STUDY: Right tibia/fibula 09/16/2022. FINDINGS: There is extensive subcutaneous edema within the ankle most pronounced medially. Focal split tear within the proximal peroneus brevis tendon. There is thickening and increased T2 signal within the posterior tibial tendon consistent with a tendinopathy. The extensor tendons are intact. Slight increased T2 signal within the anterior Achilles tendon consistent with a mild tendinosis. The plantar fascia is intact. No fracture or dislocation within the right ankle. The anterior talofibular ligament is not well visualized and likely chronically torn. The remaining lateral stabilizing ligaments are intact. No significant abnormality within the medial stabilizing ligaments. The sinus tarsi is maintained. Mild cartilage space narrowing at the tibiotalar joint. No significant joint effusion. Mild subchondral cystic change/edema at the os trigonum. This is likely chronic. IMPRESSION: 1. No acute fracture or dislocation within the right ankle. 2. Extensive subcutaneous edema within the right ankle most pronounced medially. 3. Split tear involving the proximal peroneus brevis tendon. 4. Posterior tibial tendinopathy. 5. Mild Achilles tendinosis. 6. Chronic tear of the anterior talofibular ligament. ACT 112: Negative or not required by law. Electronically signed by: Elvis Yu M.D. 09/17/2022 11:24 AM Knee MRI 09/16/22 20:07 MR knee RT wo con CLINICAL HISTORY: eval for ligamentous derangement TECHNIQUE: Multiplanar, multisequence images of the right knee were obtained. Comparison: Comparison is made to CT of the right knee 09/08/2022 FINDINGS: Exam is limited by patient motion. The biceps femoris tendon, quadriceps mechanism and patellar tendons are intact. The medial and lateral collateral ligaments are intact. The anterior and posterior cruciate ligaments are intact. There is a lateral meniscus posterior horn radial tear. There is near complete chondromalacia in the lateral compartment of the knee. The patellofemoral cartilage is within normal limits. There is no joint effusion. There is normal marrow signal. There is soft tissue swelling in the infrapatellar region compatible with previously noted hematoma. Diffuse soft tissue edema is seen. IMPRESSION: 1. Radial tear of the lateral meniscus posterior horn with associated severe chondromalacia. The cruciate ligaments and medial meniscus are intact. 2. Soft tissue swelling and hematoma in the infrapatellar region. ACT 112: Negative or not required by law. Electronically signed by: Jose A Tracey M.D. 09/17/2022 10:46 AM PG Care Time/CCT Total # of Minutes Spent Total Time Spent with Patient: Total time spent is greater than 50% in coordination of care (as documented) at patient's floor/unit and/or counseling patient: Coding Level of Care Code 17028 Subseq Hosp Care Lvl 2 Diagnoses Contusion of right leg S80.11XA Encounter type: initial encounter Old tear of lateral meniscus of right knee M23.200 CARROLL (obstructive sleep apnea) G47.33 Atrial fibrillation I48.91 Asthma J45.909 Time Spent (min) 15 (1) Contusion of right leg Encounter type: initial encounter Qualified Code(s): S80.11XA - Contusion of right lower leg, initial encounter
[2022-09-17] MEDS: LIDOCAINE 5% 1 PATCH TD SCH (15:32)
[2022-09-17] MEDS: RIVAROXABAN 20 MG TAB PO SCH (16:12)
[2022-09-17] MEDS: traMADol HCL 50 MG TABLET PO PRN (20:22)
[2022-09-17] MEDS: METHOCARBAMOL 500 MG TABLET PO PRN (20:23)
[2022-09-18] MEDS: PANTOprazole 40 MG TAB PO SCH (08:10)
[2022-09-18] MEDS: CALCIUM 600MG + VIT D 400 IU TAB PO SCH (08:11)
[2022-09-18] MEDS: FLUTICASONE/VILANTEROL 100/25MCG 14 PUFFS/INHALER INH SCH (08:11)
[2022-09-18] MEDS: GABAPENTIN 300 MG CAP PO SCH (08:11)
[2022-09-18] MEDS: ACETAMINOPHEN 500 MG TAB PO SCH (08:11)
[2022-09-18] MEDS: CHOLECALCIFEROL 1,000 UNITS 25 MCG TAB PO SCH (08:11)
[2022-09-18] MEDS: LIDOCAINE 5% 1 PATCH TD SCH (08:12)
[2022-09-18] MEDS: traMADol HCL 50 MG TABLET PO PRN (08:17)
[2022-09-18] MEDS: CETIRIZINE HCL 10 MG TABLET PO SCH (09:44)
--- NOTE | 2022-09-18 10:32 | Discharge Summary ---
Date of Service September 18, 2022 Admission HPI Per Admitting Provider 89-year-old male who fell while working at [employer] at the [facility] patient had sustained an injury to his right lower leg mostly surrounding the knee. Patient takes chronic anticoagulation for atrial fibrillation and a PFO with previous TIAs. Patient's leg is markedly tender to the lateral edge of the knee and ankle. There is significant bruising and possibly 2+ swelling. The patient is point tender and I cannot do a significantly good knee examination there is no apparent laxity that I can feel but the patient is too tender to examine. Patient was seen by orthopedics in the emergency department and felt he is not suffering from compartment syndrome and radiological studies have so far ruled out fracture. This patient cannot ambulate enough to take care of himself at home subsequently will be observed in our facility MRI scan to evaluate for ligamentous and tendinous injury and pain control which may include parenteral medications Principal Diagnosis contusion right leg right lateral meniscus tear right peroneus brevis tendon tear chronic tear of anterior talofibular ligament Discharge Exam Constitutional WD/WN, vitals as above Neck trachea midline, no thyromegaly Respiratory normal respiratory effort, lungs clear to auscultation Cardiovascular RRR, no murmur, no edema Gastrointestinal (Abdomen) normal bowel sounds, soft, nontender, no hepatosplenomegaly Psychiatric A+Ox3, euthymic affect Discharge Data Allergies Allergy/AdvReac Type Severity Reaction Status Date / Time amoxicillin Allergy Intermediate RASH,TOLERATED Verified 08/24/22 07:35 ZOSYN 5//16 ADM. animal dander Allergy Intermediate Sneezing Verified 08/24/22 07:35 clavulanic acid Allergy Intermediate RASH Verified 08/24/22 07:35 tree and shrub pollen Allergy Mild Sneezing Verified 08/24/22 07:35 adhesive AdvReac Intermediate Rash Verified 09/16/22 20:12 clindamycin AdvReac Mild STOMACH Verified 08/24/22 07:35 CRAMPS hydrocodone AdvReac Mild DIZZY, Verified 08/24/22 07:35 NAUSEA oxycodone [From OxyContin] AdvReac Mild does not Verified 08/24/22 07:35 tolerate Consultations 09/16/22 17:40 ED Decision to Admit Stat 09/16/22 20:07 Consult Orthopedic Surgery Routine Ordered Studies 09/16/22 13:12 US venous doppler LE RT Stat 09/16/22 14:37 CT knee RT wo con Stat 09/16/22 20:07 MRI Ankle [MR ankle RT wo con] Routine MRI Knee [MR knee RT wo con] Routine Hospital Course (1) Contusion of right leg: Ortho following - appreciate their input MRI Knee 1. Radial tear of the lateral meniscus posterior horn with associated severe chondromalacia. The cruciate ligaments and medial meniscus are intact. 2. Soft tissue swelling and hematoma in the infrapatellar region. MRI ankle 1. No acute fracture or dislocation within the right ankle. 2. Extensive subcutaneous edema within the right ankle most pronounced medially. 3. Split tear involving the proximal peroneus brevis tendon. 4. Posterior tibial tendinopathy. 5. Mild Achilles tendinosis. 6. Chronic tear of the anterior talofibular ligament. Doppler - No evidence of DVT No NSAIDs while on xarelto Continue Tramadol q 6-8 hour as needed for pain Had PT evaluation this AM Will continue OPPT (2) Old tear of lateral meniscus of right knee: Per ortho note, the lateral meniscus tear appears old and also appears to be a peroneal brevis split tear that is also chronic in nature. Continue rest, ice, compression and elevation PT/OT evaluation and weightbearing as tolerated utilizing a walker or crutches per patient safety Will need PT as outpatient (3) CARROLL (obstructive sleep apnea): CPAP at bedtime for this patient (4) Atrial fibrillation: Continue xarelto for thrombosis prophylaxis, no rate controlling agents chronicially (5) Asthma: Continue Budesonide formoterol for asthma which is currently stable and not in acute exacerbation Plan Continue Pantoprazole for GERD Continue Gabapentin for chronic pain control for his chronic lumbar back pain Total Time Total Time Spent Total Time Spent (In Minutes): 32 Discharge Plan Discharge Items Patient Disposition: Home - Self-Care Reason For Visit: RIGHT LEG CONTUSION Discharge Diagnosis: right leg contusion old right lateral meniscus tear chronic tear of anterior talofibular ligament right ankle tear involving proximal peroneus brevis tendon Condition on Discharge: Good Activity: Per Instructions section Activity Comment: Will need to ambulate with ankle brace and shoes with walker Lifting: None Lifting Comment: will need to wait until not needing assistance from walker Driving/Machine Use: no driving Weightbearing: Right partial Non-emergency contact: Primary Care Provider Call non-emergency contact if: you have any medication questions and your symptoms worsen Follow-up/Referrals: Chavez Morrison MD [Primary Care Provider] - Diet: Heart Healthy Addtl Attending Provider Instructions: You were admitted after a fall with right leg/ankle and foot swelling and pain. You are on Xarelto and this is a blood thinner and can increase the amount of bruising and swelling with falls/contusions. You had MRI of your right knee and right ankle revealing a tear of the lateral meniscus and proximal peroneus brevis tendon, and a chronic tear of the anterior talofibular ligament. Ortho evaluated you and suggested rest, elevation, ice and applied a compression sleeve to right leg to be worn 19/24 hours and also placed a lace up brace on right ankle. Physical therapy evaluated you and advised you on moving and transferring from sitting to standing, walking and getting in and out of a car. You also will need to use a walker and will be set up for outpatient physcial therapy. Follow up with Judit Florence PA-C on 10/02/22 @ 1:30 PM. Pending Studies at Discharge: No Stand-Alone Forms: [employer] ([email or web address]), Work/School Release Medications and DC Order Prescriptions: Continued Symbicort 80-4.5 mcg/actuation HFA aerosol inhaler 1 puff INH Q12H Qty: 3 3RF Xarelto 20 mg tablet 20 mg PO PM Qty: 90 3RF Rx Instructions: must administer with evening meal (DME) CPAP Supplies Misc See Rx Instructions .ROUTE .MEDSUPPLY Qty: 1 0RF Rx Instructions: CHANGE AUTO CPAP TO MIN 8 MAX 14. CARE PLUS O2 cholecalciferol (vitamin D3) 1,000 unit capsule 1,000 units PO QAM cetirizine 10 mg tablet 10 mg PO QAM Qty: 90 (DME) CPAP Machine Misc See Rx Instructions .ROUTE .MEDSUPPLY Qty: 1 0RF Rx Instructions: AUTO CPAP MIN 6 MAX 18. HEATED HUMIDITY. CPAP SUPPLIES. MASK OF CHOICE. JORGITO 99. CARE PLUS O2 calcium carbonate-vitamin D3 [Calcium 500 + D] 500 mg(1,250mg) -200 unit Tablet 1 tab PO BID albuterol sulfate 90 mcg/actuation HFA aerosol inhaler 2 puff inhalation QID PRN (Reason: Wheezing) acetaminophen [Tylenol] 325 mg tablet 1,000 mg PO ACHS methocarbamol 500 mg Tablet 500 mg PO Q8H gabapentin 800 mg tablet 800 mg PO TID benzonatate 100 mg capsule 200 mg PO DIRECTED PRN (Reason: Cough) pantoprazole [Protonix] 40 mg tablet,delayed release (DR/EC) 40 mg PO QAM tramadol 50 mg tablet 50 mg PO Q12 PRN (Reason: Pain) Rx Instructions: PER PT "USUALLY TAKES ONCE A DAY, RARELY BID". hydrocortisone 2.5 % Cream 1 applic TOPICAL BID PRN (Reason: Rash) Discharge Orders: Discharge Order (Routine); Ordered 09/18/22 Ordered By: Shelby Ceja/Other Patient Handouts: ED Hematoma Admission Data Admit Date/Time: 09/16/22 18:03 Attending Provider: Froy Esteves Admit Provider: Lenny Siegel Primary Care Provider: Chavez Morrison Other Providers: Vini Gilbert ; Lenny Siegel Other Interventions: Discharge Summary Assessment (RN) Last Done: 09/18/22 10:14 Coding Level of Care Code D/C DAY MANAGEMENT >30 MINS Diagnoses Contusion of right leg S80.11XA Encounter type: initial encounter Old tear of lateral meniscus of right knee M23.200 CARROLL (obstructive sleep apnea) G47.33 Atrial fibrillation I48.91 Asthma J45.909 Time Spent (min) 32
--- NOTE | 2022-09-18 10:38 | Orthopedic Progress Note ---
Date of Service September 18, 2022 Assessment & Plan (1) Contusion of right leg: Plan: Patient continues to have right lower extremity pain and edema that is consistent with contusion/hematoma secondary to use of Xarelto/Considering complex regional pain syndrome as well. Initial imaging with x-ray and CT was negative for any fracture of the knee he had imaging of the ankle that consist of an x-ray that was negative for any fracture. MRI of the right knee and ankle were reviewed, there is no acute ligamentous injury. There does appear to be a lateral meniscus tear likely old. There also appears to be a peroneal brevis split tear that is also chronic in nature. There is anterior prepatellar swelling and significant soft tissue swelling medially about the ankle. Lidoderm patch to medial knee 12 hours on 12 hours off. Lace up ankle brace when ambulating. At this time recommending controlling pain as well as edema. Recommended Tubigrip sleeve for the right lower extremity, which was placed. Pain management deferred to medicine team. He may continue to use ice for comfort over the knee as well as the ankle as needed with a towel layer in between. Recommend continuing with PT/OT weightbearing as tolerated utilizing a walker or crutches per patient safety and comfort. Discussed with Dr. Gilbert. We will continue to follow patient while in the hospital, ok to d/c from ortho standandpoint with f/u in office in 1-2 weeks and outpatient PT. Continue care per primary service. Admission and Anticipated Discharge Date Admission Date: September 16, 2022 Supervising Physician Co-Signing Physician Notes I, Dr. Gilbert, saw and examined the patient with my PA and discussed the management with my PA. I reviewed my PAs note and agree with the documented findings and the plan of care I developed. Subjective This 61-year-old male seen today for follow-up evaluation of a left knee hematoma and right ankle pain after sustaining a fall at work. Patient states that he was placed into an ankle stirrup earlier this morning and has been able to ambulate with the assistance of his walker without significant issue. States that he still has some tenderness to palpation over the medial aspect of the knee and some swelling that tracks from his knee down to his ankle. He states that he feels his knee range of motion has improved. He denies any numbness or tingling in the left lower extremity. I advised him that vision and evacuation of the hematoma has not indicated at this point. Patient verbalizes understanding of this. Review of Systems Review of Systems: All systems reviewed & are unremarkable except as noted in Subjective Physical Exam Physical Exam: Right lower extremity: has Mild nonpitting edema compared to the left lower extremity. TTP over medial joint line on the right knee and over the lateral malleolus and medial malleolus when splint was removed. Able to franc/plantar flex foot. Knee extension to 0 and flexion to 120 degrees. Patient continues to have mild pain with passive ankle inversion. No laxity appreciated with anterior and posterior drawer. Dorsal pedis pulses 2+. NV intact in Rt LE. Results & Data ([facility]) Vital Signs (Past 12 Hours) Vital Signs Temp Pulse Resp BP Pulse Ox O2 Del Method 09/18/22 07:52 36.8 C 68 18 128/81 94 Room Air Diagnostic Findings Laboratory Results WBC 6.40 K/ul (4.8-10.8) 09/16/22 14:20 RBC 4.38 M/uL (4.63-6.08) L 09/16/22 14:20 Hgb 14.2 g/dl (14.0-18.0) 09/16/22 14:20 Hct 41.8 % (40.1-51.0) 09/16/22 14:20 MCV 95.4 fL (80.0-100.0) 09/16/22 14:20 MCH 32.4 pg (25.0-34.0) 09/16/22 14:20 MCHC 34.0 g/dL (32.0-36.0) 09/16/22 14:20 RDW Std Deviation 47.2 fL (36.4-46.3) H 09/16/22 14:20 RDW Coeff of Violeta 13.3 % (11.5-14.5) 09/16/22 14:20 Plt Count 184 K/uL (130-400) 09/16/22 14:20 MPV 9.5 fL (9.4-12.4) 09/16/22 14:20 Immature Gran % (Auto) 0.3 % 09/16/22 14:20 Neut % (Auto) 68.5 % 09/16/22 14:20 Lymph % (Auto) 17.0 % 09/16/22 14:20 Swain % (Auto) 10.9 % 09/16/22 14:20 Eos % (Auto) 2.5 % 09/16/22 14:20 Baso % (Auto) 0.8 % 09/16/22 14:20 Neut # (Auto) 4.38 K/uL (1.4-6.5) 09/16/22 14:20 Lymph # (Auto) 1.09 K/uL (1.2-3.4) L 09/16/22 14:20 Swain # (Auto) 0.70 K/uL (0.24-0.82) 09/16/22 14:20 Eos # (Auto) 0.16 K/uL (0-0.50) 09/16/22 14:20 Baso # (Auto) 0.05 K/uL (0-0.2) 09/16/22 14:20 Immature Gran # (Auto) 0.02 K/uL (0.00-0.02) 09/16/22 14:20 PT 10.9 Seconds (9.0-12.0) 09/16/22 14:20 INR 1.0 (0.9-1.1) 09/16/22 14:20 APTT 31.6 Seconds (21.0-31.0) H 09/16/22 14:20 PTT Ratio 1.1 09/16/22 14:20 Sodium 140 mmol/L (136-145) 09/16/22 14:20 Potassium 4.0 mmol/L (3.5-5.1) 09/16/22 14:20 Chloride 108 mmol/L (98-107) H 09/16/22 14:20 Carbon Dioxide 28 mmol/L (21-32) 09/16/22 14:20 Anion Gap 4 (3-11) 09/16/22 14:20 BUN 28 mg/dl (6-23) H 09/16/22 14:20 Creatinine 0.83 mg/dl (0.6-1.4) 09/16/22 14:20 Est Cr Clr Drug Dosing 130.3 ml/min 09/16/22 14:20 Est GFR ( Amer) 111.6 ml/min 09/16/22 14:20 Est GFR (Non-Af Amer) 96.3 ml/min 09/16/22 14:20 BUN/Creatinine Ratio 33.7 (10-20) H 09/16/22 14:20 Glucose 73 mg/dl (70-99(Fasting)) 09/16/22 14:20 Lactate 0.7 mmol/L (0.4-2.0) 09/16/22 15:20 Calcium 8.7 mg/dl (8.5-10.1) 09/16/22 14:20 Total Bilirubin 0.9 mg/dl (0.2-1.0) 09/16/22 14:20 AST 26 U/L (13-39) 09/16/22 14:20 ALT 19 U/L (7-52) 09/16/22 14:20 Alkaline Phosphatase 61 U/L (34-104) 09/16/22 14:20 Total Protein 7.3 gm/dl (6.0-8.3) 09/16/22 14:20 Albumin 4.1 gm/dl (3.4-5.0) 09/16/22 14:20 Globulin 3.2 gm/dl (2.5-4.0) 09/16/22 14:20 Albumin/Globulin Ratio 1.3 (0.9-2) 09/16/22 14:20 Procalcitonin < 0.05 ng/ml (0-0.5) 09/16/22 14:20 SARS-CoV-2, RNA, NAAT NEGATIVE (NEGATIVE) 09/16/22 17:50 Impressions Venous Doppler Study 09/16/22 13:12 US venous doppler LE RT CLINICAL HISTORY: Right leg pain,swelling recent injury TECHNIQUE: Right lower extremity real-time compression venous ultrasound with Co anali Doppler imaging. Utilizing real-time ultrasonic imaging multiple real time high-resolution ultrasonic images with compression and noncompression maneuvers of the deep venous system in addition to color doppler imaging were performed from the common femoral vein through the proximal calf veins. COMPARISON: None available at the time of this dictation. FINDINGS: Currently there is normal compressibility of the deep venous system from the common femoral vein through the proximal calf veins. No superficial venous thrombosis is identified. Impression: No evidence of deep venous thrombus. ACT 112: Negative or not required by law. Electronically signed by: Jose A Tracey M.D. 09/16/2022 4:25 PM Knee X-Ray 09/16/22 13:13 XR knee RT 3V HISTORY: 61 years-old Male Right knee pain, fall last week acute right knee pain status post fall COMPARISON: Right knee radiographs 09/08/2022 TECHNIQUE: 3 views of the right knee FINDINGS: Mild diffuse soft tissue swelling. Mild tricompartmental osteoarthritis of the right knee without acute fracture, dislocation or osseous erosion. Soft tissue swelling within the soft tissues superficial to the patellar tendon and proximal tibial tuberosity redemonstrated. IMPRESSION: 1. No acute fracture or dislocation identified. 2. Anterior soft tissue swelling redemonstrated. ACT 112: Negative or not required by law. The above report was generated using voice recognition software. It may contain grammatical, syntax or spelling errors. Electronically signed by: Doni Vasquez M.D. 09/16/2022 1:[address] 09/16/22 14:37 CT knee RT wo con HISTORY: 61 years-old Male Worsening R knee pain s/p fall acute right knee pain status post fall COMPARISON: Right knee radiographs 09/16/2022, 09/08/2022 TECHNIQUE: Multiple axial CT images of the right knee were obtained without the use of IV contrast. A dose lowering technique was used consistent with the principals of ALARA. FINDINGS: Small joint effusion. Moderate subcutaneous edema is most pronounced anteriorly. Pretibial subcutaneous hematoma, 4.5 x 2.1 x 5.5 cm. Ligaments and tendons are not well evaluated by CT technique. Medial varicosities are noted. Mild to moderate medial and patellofemoral with moderate moderate lateral compartment osteoarthritis. Air is noted within the lateral compartment which is likely on a degenerative basis. No acute fracture, dislocation, osseous erosion or intra-articular loose body. IMPRESSION: 1. No acute fracture or dislocation. 2. Tricompartmental osteoarthritis. 3. Nonspecific subcutaneous edema of the knee with 5.5 cm pretibial subcutaneous hematoma. ACT 112: Negative or not required by law. The above report was generated using voice recognition software. It may contain grammatical, syntax or spelling errors. Electronically signed by: Doni Vasquez M.D. 09/16/2022 4:27 PM Tibia/Fibula X-Ray 09/16/22 14:38 XR tibia fibula RT 2V HISTORY: 61 years-old Male Worsening R leg pain . Acute pain of the right lower extremity COMPARISON: Right knee radiographs of same day TECHNIQUE: 2 views of the right tibia and fibula FINDINGS: Osteoarthritis of the knee and ankle. Diffuse soft tissue swelling. No acute fracture, dislocation or opaque foreign body identified. Degenerative spurring of the calcaneus. IMPRESSION: Soft tissue swelling without acute fracture or dislocation identified. ACT 112: Negative or not required by law. The above report was generated using voice recognition software. It may contain grammatical, syntax or spelling errors. Electronically signed by: Doni Vasquez M.D. 09/16/2022 3:47 PM Ankle MRI 09/16/22 20:07 MR ankle RT wo con HISTORY: Fall. Right ankle pain. eval for ligamentous derangement TECHNIQUE: Multiplanar multisequence MRI of the right ankle was performed without contrast according to standard departmental protocol. COMPARISON STUDY: Right tibia/fibula 09/16/2022. FINDINGS: There is extensive subcutaneous edema within the ankle most pronounced medially. Focal split tear within the proximal peroneus brevis tendon. There is thickening and increased T2 signal within the posterior tibial tendon consistent with a tendinopathy. The extensor tendons are intact. Slight increased T2 signal within the anterior Achilles tendon consistent with a mild tendinosis. The plantar fascia is intact. No fracture or dislocation within the right ankle. The anterior talofibular ligament is not well visualized and likely chronically torn. The remaining lateral stabilizing ligaments are intact. No significant abnormality within the medial stabilizing ligaments. The sinus tarsi is main tained. Mild cartilage space narrowing at the tibiotalar joint. No significant joint effusion. Mild subchondral cystic change/edema at the os trigonum. This is likely chronic. IMPRESSION: 1. No acute fracture or dislocation within the right ankle. 2. Extensive subcutaneous edema within the right ankle most pronounced medially. 3. Split tear involving the proximal peroneus brevis tendon. 4. Posterior tibial tendinopathy. 5. Mild Achilles tendinosis. 6. Chronic tear of the anterior talofibular ligament. ACT 112: Negative or not required by law. Electronically signed by: Elvis Yu M.D. 09/17/2022 11:24 AM Knee MRI 09/16/22 20:07 MR knee RT wo con CLINICAL HISTORY: eval for ligamentous derangement TECHNIQUE: Multiplanar, multisequence images of the right knee were obtained. Comparison: Comparison is made to CT of the right knee 09/08/2022 FINDINGS: Exam is limited by patient motion. The biceps femoris tendon, quadriceps mechanism and patellar tendons are intact. The medial and lateral collateral ligaments are intact. The anterior and posterior cruciate ligaments are intact. There is a lateral meniscus posterior horn radial tear. There is near complete chondromalacia in the lateral compartment of the knee. The patellofemoral cartilage is within normal limits. There is no joint effusion. There is normal marrow signal. There is soft tissue swelling in the infrapatellar region compatible with previously noted hematoma. Diffuse soft tissue edema is seen. IMPRESSION: 1. Radial tear of the lateral meniscus posterior horn with associated severe chondromalacia. The cruciate ligaments and medial meniscus are intact. 2. Soft tissue swelling and hematoma in the infrapatellar region. ACT 112: Negative or not required by law. Electronically signed by: Jose A Tracey M.D. 09/17/2022 10:46 AM (1) Contusion of right leg Encounter type: initial encounter Qualified Code(s): S80.11XA - Contusion of right lower leg, initial encounter
== END 2022-09-18 11:42 | disposition home or self-care (01) ==
LOC: ED 13:05 → 3W 13:05 → SUATTDRO 18:03 → 3W 19:42
DX: Z79.01 Long term (current) use of anticoagulants; S80.11XA Contusion of right lower leg, initial encounter; W19.XXXA Unspecified fall, initial encounter; S83.203A Other tear of unspecified meniscus, current injury, right knee, initial encounter; Z88.1 Allergy status to other antibiotic agents; Z88.5 Allergy status to narcotic agent; Z79.899 Other long term (current) drug therapy; I48.91 Unspecified atrial fibrillation; G47.33 Obstructive sleep apnea (adult) (pediatric); J45.909 Unspecified asthma, uncomplicated

== ENCOUNTER 2025-06-21 07:01 | Observation (INO) ==
--- NOTE | 2025-06-21 07:30 | Emergency Department Note ---
Impression & Plan SBO (small bowel obstruction), Abdominal pain ED Provider Note NAME: JT HACKETT III AGE: 64 SEX: M : 1960 ARRIVES VIA: Walk-In INFORMANT: Patient, ED PROVIDER(S): Chavez Mehta DO CHIEF COMPLAINT: Abdominal pain HPI: The patient is a 64-year-old male who presented to the emergency department for an evaluation of of abdominal pain. The patient started having abdominal pain over the last 48 hours. He denies having any vomiting he has had some nausea. He denies having any fever or back pain. He has had no chest pain or difficulty breathing. Pain increased when he rolled over in bed this morning but this is why he came to the emergency department. He has not been seen by his family doctor. He has a history of perforation. He also has a history of atrial fibrillation and takes blood thinners. ROS: See above HPI for pertinent positives & negatives. A total of 10 systems reviewed and were otherwise negative. PAST MEDICAL HISTORY: See Below PAST SURGICAL HISTORY: See Below FAMILY HISTORY: See Below SOCIAL HISTORY: See Below HOME MEDICATIONS: See Below ALLERGIES: See Below VITALS: See Below PHYSICAL EXAMINATION: GENERAL: The patient is awake and alert. He is very anxious and appears uncomfortable. EYES: The conjunctivae are clear. The pupils are round and reactive. EARS, NOSE, MOUTH AND THROAT: The nose is without any evidence of any deformity. NECK: The neck is nontender and supple. RESPIRATORY: Normal respiratory effort is noted there is no evidence of wheezing rhonchi or rales CARDIOVASCULAR: Regular rate and rhythm noted there no murmurs rubs or gallops normal S1 normal S2. GASTROINTESTINAL: Abdomen was distended. There is diffuse tenderness to palpation. There was guarding in the right lower quadrant. MUSCULOSKELETAL/EXTREMITIES: There is no evidence of gross deformity full range of motion is noted in the hips and shoulders. SKIN: There is no obvious evidence of any rash. There are no petechiae, pallor or cyanosis noted. NEUROLOGIC: Patient is awake alert and oriented x3 MEDICAL DECISION MAKING: The patient is a 64-year-old male who presented to the emergency department for an evaluation of abdominal pain. The patient had a very significant abdominal exam. The patient was treated with IV fluids and IV pain medication in the emergency department. He was reevaluated multiple times on reevaluation he was significantly improved. I discussed the patient's laboratory and radiographic studies with him. He was found to have signs of an early small bowel obstruction on CT. I discussed his condition with the on-call general surgical group as well as the on-call [facility] hospitalist group. They have agreed to evaluate the patient for further management and disposition. The patient did not have significant vomiting. I do not feel he would benefit from an NG tube at this time. Triage Nursing notes reviewed. Prior medical records reviewed Vital Signs: reviewed and remarkable for no significant abnormalities Differential diagnosis: Etiologies such as appendicitis, diverticulitis, obstruction, inflammatory bowel disease, renal colic, PUD, biliary pathology, pancreatitis, mesenteric ischemia, aortic pathology, infections, genitourinary, UTI, perforated viscus, as well as others were entertained. ER treatment provided: See below Diagnostics interpreted by me: ECG: EKG was obtained in the emergency department. My interpretation is normal sinus rhythm at 72 bpm. There is no ectopy. There is no acute ST segment abnormalities noted. QTc was 431 ms. Cardiac Monitoring: An order was placed for continuous cardiac monitoring. The monitor shows a rate of 68 bpm with sinus rhythm. Laboratory studies: As stated above and show below. Imaging studies: See below. Radiographic imaging was reviewed by myself Consultation(s): I discussed this case with Cathy who is on for the general surgical group. I discussed this case with Lisa who is on-call for the [facility] hospice group. Past Med/Surg History Problem List (Updated 06/21/25 @ 09:12 by Chavez Mehta DO) Abdominal pain (Acute) SBO (small bowel obstruction) (Acute) SBO (small bowel obstruction) Bladder pain Groin pain BPH w urinary obs/LUTS Old tear of lateral meniscus of right knee Hematoma of right lower extremity (Acute) Pain in right leg (Acute) Asthma WELL CONTROLLED PER PT Atrial fibrillation Xarelto > FOLLOWS DR. DILL > NO PACER> last visit 2019 Asthma History of diverticulitis History of bowel resection TIA (transient ischemic attack) (Acute) H/O sinus surgery (Acute 02/28/13) IBS (irritable bowel syndrome) (Acute 02/28/13) Diverticulosis (Acute) Diverticulitis of colon (Acute) Chronic sinusitis (Acute) Allergic rhinitis due to pollen (Acute) Allergic rhinitis due to dust (Acute) Allergic rhinitis due to cats (Acute) Abnormal CT of the abdomen recent CT with mild duodenal wall thickening, mild splenomegaly after COVID Lumbar radiculopathy CARROLL (obstructive sleep apnea) CPAP Medical History History of anesthesia reaction states hard for him to come out of it History of COVID-19 11/24/20- congestion, cough, fatigue, abdominal pain, elevated LFTs; still with abdominal pain 12/2021 cough and sinus infection, no hospitalization, no current issues Chronic back pain On anticoagulant therapy xarelto Osteoarthritis PFO (patent foramen ovale) no issues per pt LETICIA approx 2 yrs ago Transient ischemic attack (TIA) JANUARY 2019 /Apr 2020 (NO CURRENT PROBLEMS or RESIDUAL EFFECTS) History of diverticulitis IBS (irritable bowel syndrome) Environmental allergies Surgical History S/P epidural steroid injection History of esophagogastroduodenoscopy (EGD) History of colonoscopy History of discectomy LUMBAR x2 History of colostomy reversal History of cholecystectomy History of bowel resection WITH COLOSTOMY/REVERSAL 2015 History of tooth extraction History of endoscopic sinus surgery Strabismus REPAIRED Family History Brother Family history of diabetes mellitus Father , Age 70 Kidney disease Leukemia Mother , Age 78 COPD (chronic obstructive pulmonary disease) Lung cancer Stroke Other TIA (transient ischemic attack) Social History Smoking Status: Never smoker Second Hand Exposure: No; Do You Dip or Chew Tobacco: No; Hx Alcohol Use: No Hx Substance Use: No Preferred Language: Citizen Of [place] Communication Ability: Effective Electrical Engineer Required: No Beliefs That Will Affect Care: None marital status: Current Living Situation: Spouse Feels Safe at Home: Yes Assistive Devices: Walker Allergies Allergies Allergy/AdvReac Type Severity Reaction Status Date / Time amoxicillin Allergy Intermediate RASH,TOLERATED Verified 05/30/25 13:38 ZOSYN 01/22/16 ADM. animal dander Allergy Intermediate Sneezing Verified 05/30/25 13:38 clavulanic acid Allergy Intermediate RASH Verified 05/30/25 13:38 tree and shrub pollen Allergy Mild Sneezing Verified 05/30/25 13:38 adhesive AdvReac Intermediate Rash Verified 05/30/25 13:38 clindamycin AdvReac Intermediate STOMACH Verified 05/30/25 13:38 CRAMPS hydrocodone AdvReac Mild DIZZY, Verified 05/30/25 13:38 NAUSEA oxycodone [From OxyContin] AdvReac Mild does not Verified 05/30/25 13:38 tolerate Home Meds Home Medications Medication Instructions Recorded Confirmed calcium 500 mg (as 1 tab PO BID 07/19/18 05/30/25 carbonate)-vitamin D3 5 mcg (200 unit) tablet (Calcium 500 + D) albuterol sulfate 90 mcg/actuation 2 puff inhalation QID PRN Wheezing 02/15/19 05/30/25 aerosol inhaler cetirizine 10 mg tablet 10 mg PO QAM #90 tabs 06/07/19 05/30/25 pantoprazole 40 mg tablet,delayed 40 mg PO QAM 01/20/21 05/30/25 release (Protonix) hydrocortisone 2.5 % topical cream 1 applic topical BID PRN Rash 08/18/22 05/30/25 gabapentin 800 mg tablet 800 mg PO TID 09/16/22 05/30/25 cholecalciferol (vitamin D3) 25 2,000 unit PO QAM 02/24/23 05/30/25 mcg (1,000 unit) capsule gabapentin 100 mg capsule 100 mg PO TID 02/24/23 05/30/25 triamcinolone acetonide 0.1 % 1 applic topical DAILY 02/24/23 05/30/25 topical cream acetaminophen 500 mg tablet 1,000 mg PO TID 07/14/23 05/30/25 (Tylenol Extra Strength) ketoconazole 2 % topical cream 1 applic topical BID 07/14/23 05/30/25 methocarbamol 500 mg tablet 500 mg PO Q8H PRN 07/14/23 05/30/25 tramadol 50 mg tablet 50 mg PO BID Pain 02/04/24 05/30/25 Previous Rx's Medication Instructions Recorded CPAP Supplies #1 ea 12/07/19 budesonide-formoterol HFA 80 1 puff inhalation Q12H #3 Inhalers 08/25/22 mcg-4.5 mcg/actuation aerosol inhaler (Symbicort) tadalafil 10 mg tablet 10 mg PO DAILY PRN sexual activity 02/04/24 #30 tabs vibegron 75 mg tablet (Gemtesa) 75 mg PO DAILY #30 tabs 07/03/24 rivaroxaban 20 mg tablet (Xarelto) 20 mg PO PM #90 tabs 09/18/24 CPAP Machine #1 ea 03/07/25 Results & Data (ED) Vital Signs Vital Signs - 24 hr 06/21/25 07:02 06/21/25 07:02 06/21/25 07:32 Temperature 36.6 C Temperature Source Temporal Artery Scan Pulse Rate 81 68 Respiratory Rate 18 16 16 Blood Pressure 131/85 Blood Pressure Mean 100 Pulse Oximetry 96 92 Oxygen Delivery Method Room Air Sepsis Recent Fever Within 48 Hours No Sepsis New/Unexplained Change in Mental Status N/A Sepsis Action Taken by Nursing No Action Required 06/21/25 08:09 Temperature Temperature Source Pulse Rate 68 Respiratory Rate Blood Pressure Blood Pressure Mean Pulse Oximetry Oxygen Delivery Method Sepsis Recent Fever Within 48 Hours Sepsis New/Unexplained Change in Mental Status Sepsis Action Taken by Prison Medications Current Medication List: was personally reviewed by me Laboratory Data Attestation: I reviewed the patient's lab results. 06/21/25 07:19 06/21/25 07:19 Lab Results 06/21/25 06/21/25 06/21/25 Range/Units 07:19 07:29 08:00 WBC 6.99 (4.8-10.8) K/ul RBC 5.22 (4.70-6.10) M/uL Hgb 16.3 (14.0-18.0) g/dl POC Hgb 17.0 (14.0-18.0) g/dl Hct 47.7 (42.0-52.0) % POC Hct 50 (42-52) % MCV 91.4 (80.0-100.0) fL MCH 31.2 (25.0-34.0) pg MCHC 34.2 (32.0-36.0) g/dL RDW Std Deviation 44.2 (36.4-46.3) fL RDW Coeff of Violeta 13.2 (11.5-14.5) % Plt Count 189 (130-400) K/uL MPV 9.0 L (9.4-12.4) fL Immature Gran % (Auto) 0.3 % Neut % (Auto) 81.7 % Lymph % (Auto) 8.4 % King % (Auto) 7.6 % Eos % (Auto) 1.4 % Baso % (Auto) 0.6 % Neut # (Auto) 5.71 (1.40-6.50) K/uL Lymph # (Auto) 0.59 L (1.20-3.40) K/uL King # (Auto) 0.53 (0.11-0.59) K/uL Eos # (Auto) 0.10 (0.00-0.50) K/uL Baso # (Auto) 0.04 (0.00-0.20) K/uL Immature Gran # (Auto) 0.02 (0.01-0.20) K/uL PT 12.4 H (9.0-12.0) Seconds INR 1.2 H (0.9-1.1) APTT 39 H (21-31) Seconds PTT Ratio 1.4 POC Sodium 140 (135-144) mmol/L Sodium 137 (136-145) mmol/L POC Potassium 4.1 (3.3-5.0) mmol/L Potassium 4.1 (3.5-5.1) mmol/L POC Chloride 102 (101-112) mmol/L Chloride 103 (98-107) mmol/L Carbon Dioxide 29 (21-32) mmol/L POC Total CO2 26 (24-31) mmol/L Anion Gap 5 (3-11) POC Anion Gap 17.0 (16-25) mmol/L POC BUN 12 (7-18) mg/dl BUN 13 (6-23) mg/dl Creatinine 1.06 (0.6-1.4) mg/dl POC Creatinine 1.1 (0.6-1.3) mg/dl Est Cr Clr Drug Dosing 87.9 ml/min eGFR 79.35 BUN/Creatinine Ratio 12.3 (10-20) Glucose 108 H (70-99(Fasting)) mg/dl POC Glucose (other) 111 H (70-99) mg/dl Calcium 9.6 (8.6-10.3) mg/dl POC Ioniz Calcium Henry 1.13 (1.12-1.32) mmol/l Total Bilirubin 0.9 (0.2-1.0) mg/dl AST 27 (13-39) U/L ALT 22 (7-52) U/L Alkaline Phosphatase 59 (34-104) U/L Troponin I High Sens 4.8 (0-20) pg/ml Total Protein 7.7 (6.0-8.3) gm/dl Albumin 4.5 (3.4-5.0) gm/dl Globulin 3.2 (2.5-4.0) gm/dl Albumin/Globulin Ratio 1.4 (0.9-2) Lipase 31 (11-82) U/L Urine Color Yellow Urine Appearance Clear (Clear) Urine pH 8.5 H (4.5-7.5) Ur Specific [place] > 1.045 H (1.000-1.030) Urine Protein Negative (Negative) Urine Glucose (UA) Negative (Negative) Urine Ketones Negative (Negative) Urine Blood Negative (Negative) Urine Nitrite Negative (Negative) Urine Bilirubin Negative (Negative) Urine Urobilinogen Negative (Negative) Ur Leukocyte Esterase Negative (Negative) Urine Comment Administered Medications Morphine Sulfate (Morphine Sulfate 4 Mg/Ml 1 Ml Carp\\Vial) 4 mg IV Q15M PRN PRN Reason: Pain Stop: 07/05/25 07:11 Last Admin: 06/21/25 08:54 Dose: 4 mg Documented By: Admin: 06/21/25 07:36 Dose: 4 mg Documented By: SHAYY Discontinued Medications Sodium Chloride (Nss) 1,000 mls @ 999 mls/hr IV .Q1H1M STA Stop: 06/21/25 08:12 Last Admin: 06/21/25 07:36 Dose: 999 mls/hr Documented By: SHAYY Ioversol (Optiray 320 100ml) 94 ml IV ONCE ONE Stop: 06/21/25 07:48 Last Admin: 06/21/25 07:48 Dose: 94 ml Documented By: ROBERTA Ondansetron HCl (Ondansetron Inj 2 Mg/Ml 2 Ml Vial) 4 mg IV NOW STA Stop: 06/21/25 07:13 Last Admin: 06/21/25 07:36 Dose: 4 mg Documented By: SHAYY Imaging Data Attestation: I personally reviewed and interpreted this imaging study as follows: My Impression: CT of the abdomen and pelvis was obtained in the emergency department. My interpretation is no free air, dilated loops of bowel are noted in the left lower quadrant, final report below. Radiologist's Impression: Abdomen/Pelvis CT 06/21/25 07:[address] WITH IV CONTRAST CT DOSE: 1577.75 mGy.cm HISTORY: Acute generalized abdominal pain pain, hx of perforation TECHNIQUE: Multiaxial CT images of the abdomen and pelvis were performed following the IV administration of 94 cc of Optiray, A dose lowering technique was utilized adhering to the principles of ALARA. COMPARISON STUDY: CT abdomen and pelvis 02/22/2023 FINDINGS: No acute lower thoracic abnormality. No pneumatosis or pneumoperitoneum. Spleen measures 15 cm in length. Unremarkable pancreas, adrenal glands and liver. Cholecystectomy. Patent portal vein. No hydronephrosis. Intermediate density 1.7 cm lesion of the upper pole left kidney previously measured 1.3 cm, Hounsfield unit of 22. Unremarkable urinary bladder. Aorta and IVC are within normal limits. No lymphadenopathy. An anastomosis within the sigmoid. Mild colonic diverticulosis without acute diverticulitis. 4.2 cm abdominal wall hernia noted within the left abdomen on image 162 series 3. There are adjacent bowel surgical suture material noted. Scattered large and small bowel air-fluid levels. Noninflamed appendix. Dilated loops of small bowel within the left abdomen and pelvis measure over 3 cm. Mild intraloop edema with transition narrowing noted within the lower abdomen. Several loops of bowel appear to be adherent to the anterior lower abdominal wall. Trace ascites. Unremarkable soft tissues. Lumbar levoscoliosis. No acute fracture. IMPRESSION: 1. Large and small bowel air-fluid levels are noted along with dilated small bowel loops with transitioned narrowing within the left lower quadrant suggestive of developing obstruction secondary to adhesions. Surgical consultation is advised. 2. Trace ascites with mild reactive interloop edema. 3. Mild splenomegaly. 4. Cholecystectomy. 5. Indeterminate 1.7 cm lesion of the upper pole left kidney, possibly a complex cyst. Confirmation with follow-up nonemergent renal ultrasound is needed. ACT 112: Negative or not required by law. The above report was generated using voice recognition software. It may contain grammatical, syntax or spelling errors. Electronically signed by: Doni Vasquez M.D. 06/21/2025 8:16 AM Chest X-Ray 06/21/25 07:12 EXAM: XR chest 1V portable CLINICAL HISTORY: pain TECHNIQUE: An X-ray image of the chest was obtained in the PA projection. COMPARISON: Prior dated 12/08/2020. FINDINGS: Pulmonary Parenchyma: The lungs are clear bilaterally. There is no evidence of consolidation, collapse, or focal opacities. No pulmonary nodules are identified. There is no evidence of pleural effusion or pleural thickening. Heart and Mediastinum: The heart size and shape are normal. There is no mediastinal widening or masses. No hilar or mediastinal lymphadenopathy is identified. Bony Thorax: The bony thorax appears intact without fractures or deformities. Soft Tissues: The soft tissues overlying the chest wall are unremarkable. IMPRESSION: 1. No acute cardiopulmonary abnormalities are identified. 2. No interval changes. Electronically signed by Alen Manuel 06-21-2025 08:07 AM Discharge Plan Visit Data Chief Complaint: Abdominal Pain Stated Complaint: ABDOMINAL PAIN ED Provider: Chavez Mehta Discharge Problem: SBO (small bowel obstruction), Abdominal pain Patient Disposition: Being Evaluated by Hospitalist Condition: Fair Forms Stand Alone Forms: [facility] [employer] Prescriptions Prescriptions: No Action Symbicort 80-4.5 mcg/actuation HFA aerosol inhaler 1 puff INH Q12H Qty: 3 3RF Xarelto 20 mg tablet 20 mg PO PM Qty: 90 3RF Rx Instructions: must administer with evening meal (DME) CPAP Supplies Misc See Rx Instructions .ROUTE .MEDSUPPLY Qty: 1 0RF Rx Instructions: CHANGE AUTO CPAP TO MIN 8 MAX 14. CARE PLUS O2 triamcinolone acetonide 0.1 % cream 1 applic topical DAILY Rx Instructions: on legs for eczema ketoconazole 2 % cream 1 applic topical BID Rx Instructions: for feet scaling and fungus cetirizine 10 mg tablet 10 mg PO QAM Qty: 90 cholecalciferol (vitamin D3) 25 mcg (1,000 unit) capsule 2,000 unit PO QAM gabapentin 100 mg capsule 100 mg PO TID Rx Instructions: TOTAL DOSE 900 MG--TAKES WITH 800 MG TAB. tadalafil 10 mg tablet 10 mg PO DAILY PRN (Reason: sexual activity) Qty: 30 1RF Rx Instructions: administer approximately 30min before sexual activity; do not use more than 1 dose per 24hrs Gemtesa 75 mg tablet 75 mg PO DAILY Qty: 30 11RF (DME) CPAP Machine Misc See Rx Instructions .ROUTE .MEDSUPPLY Qty: 1 0RF Rx Instructions: Auto CPAP 8 to 15 cm of water. Current machine has uncorrectable error message. Heated humidification. Please assist patient for optimal mask fit as leak numbers are high. [employer] calcium carbonate-vitamin D3 [Calcium 500 + D] 500 mg(1,250mg) -200 unit Tablet 1 tab PO BID albuterol sulfate 90 mcg/actuation HFA aerosol inhaler 2 puff inhalation QID PRN (Reason: Wheezing) methocarbamol 500 mg tablet 500 mg PO Q8H PRN gabapentin 800 mg tablet 800 mg PO TID Rx Instructions: TOTAL DOSE 900 MG--TAKES WITH 100 MG CAP. acetaminophen [Tylenol Extra Strength] 500 mg tablet 1,000 mg PO TID pantoprazole [Protonix] 40 mg tablet,delayed release (DR/EC) 40 mg PO QAM tramadol 50 mg tablet 50 mg PO BID Rx Instructions: PER PT "up to 4 times a day". hydrocortisone 2.5 % Cream 1 applic TOPICAL BID PRN (Reason: Rash) Referrals Referrals: Nneka Buitrago MD [Outside Practitioners] -
[2025-06-21] MEDS: ONDANSETRON INJ 2 MG/ML 2 ML VIAL IV STA (07:36)
[2025-06-21] MEDS: SODIUM CHLORIDE 0.9% 1,000 ML IV STA (07:36)
[2025-06-21] MEDS: MoRPHine SULFATE 4 MG/ML 1 ML CARP\\VIAL IV PRN (07:36)
[2025-06-21 07:41] LABS: Hematocrit (blood only) 47.7 % (42.0-52.0); Hemoglobin 16.3 g/dl (14.0-18.0); Immature Granulocytes # (auto) 0.02 K/uL (0.01-0.20); Immature Granulocytes % (auto) 0.3 %; Mean Corpuscular Hemoglobin 31.2 pg (25.0-34.0); Mean Corpuscular Volume 91.4 fL (80.0-100.0); Platelet Count 189 K/uL (130-400); RDW Standard Deviation 44.2 fL (36.4-46.3); Red Blood Count 5.22 M/uL (4.70-6.10); White Blood Count 6.99 K/ul (4.8-10.8)
[2025-06-21] MEDS: OPTIRAY 320 100ml IV ONE (07:48)
[2025-06-21 07:58] LABS: Alanine Aminotransferase 22.0 U/L (7-52); Albumin Globulin Ratio 1.4 (0.9-2); Albumin Level 4.5 gm/dl (3.4-5.0); Alkaline Phosphatase 59.0 U/L (34-104); Anion Gap 5.0 (3-11); Bilirubin,Total 0.9 mg/dl (0.2-1.0); Blood Urea Nitrogen 13.0 mg/dl (6-23); Calcium 9.6 mg/dl (8.6-10.3); Carbon Dioxide 29.0 mmol/L (21-32); Chloride 103.0 mmol/L (98-107); Creatinine Clr Calc Pharmacy 87.9 ml/min; Globulin 3.2 gm/dl (2.5-4.0); Glucose 108.0 mg/dl (70-99(Fasting)); Lipase 31.0 U/L (11-82); Potassium 4.1 mmol/L (3.5-5.1); Sodium 137.0 mmol/L (136-145); Total Protein 7.7 gm/dl (6.0-8.3)
--- NOTE | 2025-06-21 08:07 | XRay Report ---
EXAM: XR chest 1V portable CLINICAL HISTORY: pain TECHNIQUE: An X-ray image of the chest was obtained in the PA projection. COMPARISON: Prior dated 12/08/2020. FINDINGS: Pulmonary Parenchyma: The lungs are clear bilaterally. There is no evidence of consolidation, collapse, or focal opacities. No pulmonary nodules are identified. There is no evidence of pleural effusion or pleural thickening. Heart and Mediastinum: The heart size and shape are normal. There is no mediastinal widening or masses. No hilar or mediastinal lymphadenopathy is identified. Bony Thorax: The bony thorax appears intact without fractures or deformities. Soft Tissues: The soft tissues overlying the chest wall are unremarkable. IMPRESSION: 1. No acute cardiopulmonary abnormalities are identified. 2. No interval changes. Electronically signed by Alen Manuel 06-21-2025 08:07 AM
[2025-06-21 08:14] LABS: INR 1.2 (0.9-1.1); Partial Thromboplastin Time 39 Seconds (21-31); Prothrombin Time 12.4 Seconds (9.0-12.0)
--- NOTE | 2025-06-21 08:19 | CT Scan Report ---
ABDOMEN AND PELVIS CT WITH IV CONTRAST CT DOSE: 1577.75 mGy.cm HISTORY: Acute generalized abdominal pain pain, hx of perforation TECHNIQUE: Multiaxial CT images of the abdomen and pelvis were performed following the IV administrat ion of 94 cc of Optiray, A dose lowering technique was utilized adhering to the principles of ALARA. COMPARISON STUDY: CT abdomen and pelvis 02/22/2023 FINDINGS: No acute lower thoracic abnormality. No pneumatosis or pneumoperitoneum. Spleen measures 15 cm in length. Unremarkable pancreas, adrenal glands and liver. Cholecystectomy. Patent portal vein. No hydronephrosis. Intermediate density 1.7 cm lesion of the upper pole left kidney previously measur ed 1.3 cm, Hounsfield unit of 22. Unremarkable urinary bladder. Aorta and IVC are within normal limit s. No lymphadenopathy. An anastomosis within the sigmoid. Mild colonic diverticulosis without acute diverticulitis. 4.2 cm a bdominal wall hernia noted within the left abdomen on image 162 series 3. There are adjacent bowel rapp rgical suture material noted. Scattered large and small bowel air-fluid levels. Noninflamed appendix. Dilated loops of small bowel within the left abdomen and pelvis measure over 3 cm. Mild intraloop ed monica with transition narrowing noted within the lower abdomen. Several loops of bowel appear to be adh erent to the anterior lower abdominal wall. Trace ascites. Unremarkable soft tissues. Lumbar levoscol iosis. No acute fracture. IMPRESSION: 1. Large and small bowel air-fluid levels are noted along with dilated small bowel loops with transit ioned narrowing within the left lower quadrant suggestive of developing obstruction secondary to adhe sions. Surgical consultation is advised. 2. Trace ascites with mild reactive interloop edema. 3. Mild splenomegaly. 4. Cholecystectomy. 5. Indeterminate 1.7 cm lesion of the upper pole left kidney, possibly a complex cyst. Confirmation w ith follow-up nonemergent renal ultrasound is needed. ACT 112: Negative or not required by law. The above report was generated using voice recognition software. It may contain grammatical, syntax o r spelling errors. Electronically signed by: Doni Vasquez M.D. 06/21/2025 8:16 AM
[2025-06-21 08:37] LABS: Appearance Urine Clear (Clear); Glucose Urine UA Negative (Negative)
--- NOTE | 2025-06-21 09:07 | Surgery Consultation ---
Date of Consultation June 21, 2025 Assessment & Plan (1) SBO (small bowel obstruction): 64 yo male presented to ED with 48 hour history of generalized abdominal pain increasing in severity. History of colon resection with ostomy for perforated diverticulitis at [facility] in 2016 with reversal. No prior history of SBO. CT scan with narrowing in the LLQ, no high grade obstruction. Abdomen soft, mildly distended, no peritonitis, rigidity or guarding. Recommend conservative management with bowel rest, iv fluids, pain management and antiemetics as needed. Encourage ambulation as much as possible. Will follow along Discussed with Dr. Morales who agrees with above. History of Present Illness Reason for Consultation: SBO Requesting Physician: Dr. Mehta History of Present Illness Mr. Benítez is a 64 yo male with history of BPH, a-fib on xarelto, CARROLL, lumbar radiculopathy, allergic rhinitis, diverticulitis with perforation requiring colon resection, ostomy and then reversal who presented to ED with increasing abdominal pain and shortness of breath secondary to increase abdominal pain. States pain started two days ago, increased in severity. Pain comes in waves but has constant pain in entire abdomen. Perforated diverticulitis in 2016 requiring [facility] at [facility] [place] and then had reversal. Cholecystectomy prior. No history of SBO since major abdominal surgery. No vomiting, fevers, chills, chest pain. Does have some difficulty urinating at baseline follows with Dr. Cabrera with urology might have bladder stricture. Allergies Allergy/AdvReac Type Severity Reaction Status Date / Time amoxicillin Allergy Intermediate RASH,TOLERATED Verified 05/30/25 13:38 ZOSYN 01/22/16 ADM. animal dander Allergy Intermediate Sneezing Verified 05/30/25 13:38 clavulanic acid Allergy Intermediate RASH Verified 05/30/25 13:38 tree and shrub pollen Allergy Mild Sneezing Verified 05/30/25 13:38 adhesive AdvReac Intermediate Rash Verified 05/30/25 13:38 clindamycin AdvReac Intermediate STOMACH Verified 05/30/25 13:38 CRAMPS hydrocodone AdvReac Mild DIZZY, Verified 05/30/25 13:38 NAUSEA oxycodone [From OxyContin] AdvReac Mild does not Verified 05/30/25 13:38 tolerate Home Medications Medication Instructions Recorded Confirmed Type calcium 500 mg (as 1 tab PO BID 07/19/18 05/30/25 History carbonate)-vitamin D3 5 mcg (200 unit) tablet (Calcium 500 + D) albuterol sulfate 90 mcg/actuation 2 puff inhalation QID PRN Wheezing 02/15/19 05/30/25 History aerosol inhaler cetirizine 10 mg tablet 10 mg PO QAM #90 tabs 06/07/19 05/30/25 History CPAP Supplies #1 ea 12/07/19 05/30/25 Rx pantoprazole 40 mg tablet,delayed 40 mg PO QAM 01/20/21 05/30/25 History release (Protonix) hydrocortisone 2.5 % topical cream 1 applic topical BID PRN Rash 08/18/22 05/30/25 History budesonide-formoterol HFA 80 1 puff inhalation Q12H #3 Inhalers 08/25/22 05/30/25 Rx mcg-4.5 mcg/actuation aerosol inhaler (Symbicort) gabapentin 800 mg tablet 800 mg PO TID 09/16/22 05/30/25 History cholecalciferol (vitamin D3) 25 2,000 unit PO QAM 02/24/23 05/30/25 History mcg (1,000 unit) capsule gabapentin 100 mg capsule 100 mg PO TID 02/24/23 05/30/25 History triamcinolone acetonide 0.1 % 1 applic topical DAILY 02/24/23 05/30/25 History topical cream acetaminophen 500 mg tablet 1,000 mg PO TID 07/14/23 05/30/25 History (Tylenol Extra Strength) ketoconazole 2 % topical cream 1 applic topical BID 07/14/23 05/30/25 History methocarbamol 500 mg tablet 500 mg PO Q8H PRN 07/14/23 05/30/25 History tadalafil 10 mg tablet 10 mg PO DAILY PRN sexual activity 02/04/24 05/30/25 Rx #30 tabs tramadol 50 mg tablet 50 mg PO BID Pain 02/04/24 05/30/25 History vibegron 75 mg tablet (Gemtesa) 75 mg PO DAILY #30 tabs 07/03/24 05/30/25 Rx rivaroxaban 20 mg tablet (Xarelto) 20 mg PO PM #90 tabs 09/18/24 05/30/25 Rx CPAP Machine #1 ea 03/07/25 05/30/25 Rx Patient History Medical History History of anesthesia reaction states hard for him to come out of it History of COVID-19 11/24/20- congestion, cough, fatigue, abdominal pain, elevated LFTs; still with abdominal pain 12/2021 cough and sinus infection, no hospitalization, no current issues Chronic back pain On anticoagulant therapy xarelto Osteoarthritis PFO (patent foramen ovale) no issues per pt LETICIA approx 2 yrs ago Transient ischemic attack (TIA) JANUARY 2019 /Apr 2020 (NO CURRENT PROBLEMS or RESIDUAL EFFECTS) History of diverticulitis IBS (irritable bowel syndrome) Environmental allergies Surgical History S/P epidural steroid injection History of esophagogastroduodenoscopy (EGD) History of colonoscopy History of discectomy LUMBAR x2 History of colostomy reversal History of cholecystectomy History of bowel resection WITH COLOSTOMY/REVERSAL 2015 History of tooth extraction History of endoscopic sinus surgery Strabismus REPAIRED Family History Brother Family history of diabetes mellitus Father , Age 70 Kidney disease Leukemia Mother , Age 78 COPD (chronic obstructive pulmonary disease) Lung cancer Stroke Other TIA (transient ischemic attack) Social History Smoking Status: Never smoker Second Hand Exposure: No; Do You Dip or Chew Tobacco: No; Hx Alcohol Use: No Hx Substance Use: No Preferred Language: Czech Communication Ability: Effective Employee Service Officer Required: No Beliefs That Will Affect Care: None marital status: Current Living Situation: Spouse Feels Safe at Home: Yes Assistive Devices: Walker Review of Systems Review of Systems: All systems reviewed & are unremarkable except as noted in HPI & below Physical Exam Constitutional: WD/WN, vitals as above + obese and cooperative; no acute distress and not ill appearing Respiratory: normal respiratory effort; no respiratory distress and no labored breathing Gastrointestinal (Abdomen): Inspection/Auscultation: abdomen normal to inspection, + abdomen distended (mild distention upper abdomen) and + abdominal surgical scar (mildline laparotomy scar, ostomy scar) Percussion/Palpation: + abdomen tender (generalized throughout abdomen, more in LUQ and epigastrium) and abdomen soft; no guarding, abdomen not rigid and abdomen not firm Skin: no rashes, warm and dry Psychiatric: Orientation: alert and oriented x 3 Results & Data Vital Signs (Past 12 Hours) Vital Signs Temp Pulse Resp BP Pulse Ox O2 Del Method 06/21/25 08:09 68 06/21/25 07:32 68 16 92 Room Air 06/21/25 07:02 16 06/21/25 07:02 36.6 C 81 18 131/85 96 Laboratory Results 06/21/25 06/21/25 06/21/25 Range/Units 08:00 07:29 07:19 WBC 6.99 (4.8-10.8) K/ul RBC 5.22 (4.70-6.10) M/uL Hgb 16.3 (14.0-18.0) g/dl POC Hgb 17.0 (14.0-18.0) g/dl Hct 47.7 (42.0-52.0) % POC Hct 50 (42-52) % MCV 91.4 (80.0-100.0) fL MCH 31.2 (25.0-34.0) pg MCHC 34.2 (32.0-36.0) g/dL RDW Std Deviation 44.2 (36.4-46.3) fL RDW Coeff of Violeta 13.2 (11.5-14.5) % Plt Count 189 (130-400) K/uL MPV 9.0 L (9.4-12.4) fL Immature Gran % (Auto) 0.3 % Neut % (Auto) 81.7 % Lymph % (Auto) 8.4 % [place] % (Auto) 7.6 % Eos % (Auto) 1.4 % Baso % (Auto) 0.6 % Neut # (Auto) 5.71 (1.40-6.50) K/uL Lymph # (Auto) 0.59 L (1.20-3.40) K/uL [place] # (Auto) 0.53 (0.11-0.59) K/uL Eos # (Auto) 0.10 (0.00-0.50) K/uL Baso # (Auto) 0.04 (0.00-0.20) K/uL Immature Gran # (Auto) 0.02 (0.01-0.20) K/uL PT 12.4 H (9.0-12.0) Seconds INR 1.2 H (0.9-1.1) APTT 39 H (21-31) Seconds PTT Ratio 1.4 POC Sodium 140 (135-144) mmol/L Sodium 137 (136-145) mmol/L POC Potassium 4.1 (3.3-5.0) mmol/L Potassium 4.1 (3.5-5.1) mmol/L POC Chloride 102 (101-112) mmol/L Chloride 103 (98-107) mmol/L Carbon Dioxide 29 (21-32) mmol/L POC Total CO2 26 (24-31) mmol/L Anion Gap 5 (3-11) POC Anion Gap 17.0 (16-25) mmol/L POC BUN 12 (7-18) mg/dl BUN 13 (6-23) mg/dl Creatinine 1.06 (0.6-1.4) mg/dl POC Creatinine 1.1 (0.6-1.3) mg/dl Est Cr Clr Drug Dosing 87.9 ml/min eGFR 79.35 BUN/Creatinine Ratio 12.3 (10-20) Glucose 108 H (70-99(Fasting)) mg/dl POC Glucose (other) 111 H (70-99) mg/dl Calcium 9.6 (8.6-10.3) mg/dl POC Ioniz Calcium Henry 1.13 (1.12-1.32) mmol/l Total Bilirubin 0.9 (0.2-1.0) mg/dl AST 27 (13-39) U/L ALT 22 (7-52) U/L Alkaline Phosphatase 59 (34-104) U/L Troponin I High Sens 4.8 (0-20) pg/ml Total Protein 7.7 (6.0-8.3) gm/dl Albumin 4.5 (3.4-5.0) gm/dl Globulin 3.2 (2.5-4.0) gm/dl Albumin/Globulin Ratio 1.4 (0.9-2) Lipase 31 (11-82) U/L Urine Color Yellow Urine Appearance Clear (Clear) Urine pH 8.5 H (4.5-7.5) Ur Specific [place] > 1.045 H (1.000-1.030) Urine Protein Negative (Negative) Urine Glucose (UA) Negative (Negative) Urine Ketones Negative (Negative) Urine Blood Negative (Negative) Urine Nitrite Negative (Negative) Urine Bilirubin Negative (Negative) Urine Urobilinogen Negative (Negative) Ur Leukocyte Esterase Negative (Negative) Urine Comment Diagnostic Findings ABDOMEN AND PELVIS CT WITH IV CONTRAST CT DOSE: 1577.75 mGy.cm HISTORY: Acute generalized abdominal pain pain, hx of perforation TECHNIQUE: Multiaxial CT images of the abdomen and pelvis were performed following the IV administration of 94 cc of Optiray, A dose lowering technique was utilized adhering to the principles of ALARA. COMPARISON STUDY: CT abdomen and pelvis 02/22/2023 FINDINGS: No acute lower thoracic abnormality. No pneumatosis or pneumoperitoneum. Spleen measures 15 cm in length. Unremarkable pancreas, adrenal glands and liver. Cholecystectomy. Patent portal vein. No hydronephrosi s. Intermediate density 1.7 cm lesion of the upper pole left kidney previously measured 1.3 cm, Hounsfield unit of 22. Unremarkable urinary bladder. Aorta and IVC are within normal limits. No lymphadenopathy. An anastomosis within the sigmoid. Mild colonic diverticulosis without acute diverticulitis. 4.2 cm abdominal wall hernia noted within the left abdomen on image 162 series 3. There are adjacent bowel surgical suture material noted. Scattered large and small bowel air-fluid levels. Noninflamed appendix. Dilated loops of small bowel within the left abdomen and pelvis measure over 3 cm. Mild intraloop edema with transition narrowing noted within the lower abdomen. Several loops of bowel appear to be adherent to the anterior lower abdominal wall. Trace ascites. Unremarkable soft tissues. Lumbar levoscoliosis. No acute fracture. IMPRESSION: 1. Large and small bowel air-fluid levels are noted along with dilated small bowel loops with transitioned narrowing within the left lower quadrant suggestive of developing obstruction secondary to adhesions. Surgical consultation is advised. 2. Trace ascites with mild reactive interloop edema. 3. Mild splenomegaly. 4. Cholecystectomy. 5. Indeterminate 1.7 cm lesion of the upper pole left kidney, possibly a complex cyst. Confirmation with follow-up nonemergent renal ultrasound is needed. Personally reviewed images above and concur with above findings
[2025-06-21] MEDS ORDERED: MoRPHine SULFATE 2 MG/ML CARP IV PRN (09:23)
--- NOTE | 2025-06-21 09:38 | History & Physical Report ---
Date of Service June 21, 2025 Assessment & Plan (1) SBO (small bowel obstruction): (2) Abdominal pain: (3) Atrial fibrillation: (4) CARROLL (obstructive sleep apnea): Plan This is a 64 year old gentleman with past medical history of A fib, TIA, Asthma, bowel resection secondary to perforation from diverticulitis who presented to the ED on 06/21/2025 for abdominal pain While in the ED he had a stable CBC and BMP. His CXR was normal. His CT did reveal lg & sm bowel air fluid levels noted along w/ dilated SB loops w/ transitioned narrowing within LLQ suggestive of developing obstruction secondary to adhesions. Trace ascites w/ mild reactive interloop edema. Mild splenomegaly. s/p choley. Indeterminate 1.7cm lesion of upper pole left kidney, possible complex cyst. General surgery was consulted & are currently recommending conservative management. #Abdominal pain w/ hx of diverticulitis w/ perforation followed by bowel resection in 2015. CBC stable, BMP stable. LFTs WNL; Trop negative; Lipase normal. UA negative. CXR negative CTAP: lg/sm bowel air fluid levels noted along w/ dilated SB loops w/ transitioned narrowing within LLQ suggestive of developing obstruction secondary to adhesions. Trace Ascites w/ mild reactive interloop edema. Mild splenomegaly. Indeterminate .1.7cm lesion of upper pole left kidney (needs US on outpatient basis) Gen surg consulted & following --> conservative management, encourage ambulation IVF - LR @ 100ml/hr. No abx necessary given absence of leukocytosis/fever. Maintain NPO status. #A fib Follows w/ cardiology. On Xarelto - hold in setting of developing bowel obstruction Not on rate control #Asthma - continue home inhalers #CARROLL - CPAP HS #Neuropathy - Hold Gabapentin while NPO status. #GERD - IV Protonix secondary to NPO status. #BPH - Hold Vibegron DVT prophylaxis: Hold in setting of bowel obstruction Code: full Case was discussed w/ Dr. Esteves at time of admission. History of Present Illness Primary Care Provider: Alyssa Segal DO This is a 64 year old gentleman with past medical history of A fib, TIA, Asthma, bowel resection secondary to perforation from diverticulitis who presented to the ED on 06/21/2025 for abdominal pain. Kuldeep was seen & examined this morning. He reports he typically moves his bowels anywhere from 2-4 times per day. States that he felt a bit constipated over the weekend which is when his abdominal pain began. States it escalated last night and was severe in nature this morning which is what prompted him to come to the hospital. He states that he did have a BM this morning that was loose but that is typical for him. Denied any melena or hematochezia. States the morphine has helped his pain. States he does feel nauseous when the pain is severe but denies any vomiting. He states that he does get SOB when pain is severe but subsides when pain is managed. Denies any CP. Follows w/ urology on ongoing urinary issues but states no acute complaints. Denies any lower extremity edema. While in the ED he had a stable CBC and BMP. His CXR was normal. His CT did reveal lg & sm bowel air fluid levels noted along w/ dilated SB loops w/ transitioned narrowing within LLQ suggestive of developing obstruction secondary to adhesions. Trace ascites w/ mild reactive interloop edema. Mild splenomegaly. s/p choley. Indeterminate 1.7cm lesion of upper pole left kidney, possible com plex cyst. General surgery was consulted & are currently recommending conservative management. Code discussion did take place with the patient & he does confirm that he is a full code. Allergies Allergy/AdvReac Type Severity Reaction Status Date / Time amoxicillin Allergy Intermediate RASH,TOLERATED Verified 05/30/25 13:38 ZOSYN 01/22/16 ADM. animal dander Allergy Intermediate Sneezing Verified 05/30/25 13:38 clavulanic acid Allergy Intermediate RASH Verified 05/30/25 13:38 tree and shrub pollen Allergy Mild Sneezing Verified 05/30/25 13:38 adhesive AdvReac Intermediate Rash Verified 05/30/25 13:38 clindamycin AdvReac Intermediate STOMACH Verified 05/30/25 13:38 CRAMPS hydrocodone AdvReac Mild DIZZY, Verified 05/30/25 13:38 NAUSEA oxycodone [From OxyContin] AdvReac Mild does not Verified 05/30/25 13:38 tolerate Home Medications Medication Instructions Recorded Confirmed Type calcium 500 mg (as 1 tab PO BID 07/19/18 05/30/25 History carbonate)-vitamin D3 5 mcg (200 unit) tablet (Calcium 500 + D) albuterol sulfate 90 mcg/actuation 2 puff inhalation QID PRN Wheezing 02/15/19 05/30/25 History aerosol inhaler cetirizine 10 mg tablet 10 mg PO QAM #90 tabs 06/07/19 05/30/25 History CPAP Supplies #1 ea 12/07/19 05/30/25 Rx pantoprazole 40 mg tablet,delayed 40 mg PO QAM 01/20/21 05/30/25 History release (Protonix) hydrocortisone 2.5 % topical cream 1 applic topical BID PRN Rash 08/18/22 05/30/25 History budesonide-formoterol HFA 80 1 puff inhalation Q12H #3 Inhalers 08/25/22 05/30/25 Rx mcg-4.5 mcg/actuation aerosol inhaler (Symbicort) gabapentin 800 mg tablet 800 mg PO TID 09/16/22 05/30/25 History cholecalciferol (vitamin D3) 25 2,000 unit PO QAM 02/24/23 05/30/25 History mcg (1,000 unit) capsule gabapentin 100 mg capsule 100 mg PO TID 02/24/23 05/30/25 History triamcinolone acetonide 0.1 % 1 applic topical DAILY 02/24/23 05/30/25 History topical cream acetaminophen 500 mg tablet 1,000 mg PO TID 07/14/23 05/30/25 History (Tylenol Extra Strength) ketoconazole 2 % topical cream 1 applic topical BID 07/14/23 05/30/25 History methocarbamol 500 mg tablet 500 mg PO Q8H PRN 07/14/23 05/30/25 History tadalafil 10 mg tablet 10 mg PO DAILY PRN sexual activity 02/04/24 05/30/25 Rx #30 tabs tramadol 50 mg tablet 50 mg PO BID Pain 02/04/24 05/30/25 History vibegron 75 mg tablet (Gemtesa) 75 mg PO DAILY #30 tabs 07/03/24 05/30/25 Rx rivaroxaban 20 mg tablet (Xarelto) 20 mg PO PM #90 tabs 09/18/24 05/30/25 Rx CPAP Machine #1 ea 03/07/25 05/30/25 Rx Past Med/Surg History Problem List (Updated 06/21/25 @ 09:12 by Chavez Mehta DO) Abdominal pain (Acute) SBO (small bowel obstruction) (Acute) SBO (small bowel obstruction) Bladder pain Groin pain BPH w urinary obs/LUTS Old tear of lateral meniscus of right knee Hematoma of right lower extremity (Acute) Pain in right leg (Acute) Asthma WELL CONTROLLED PER PT Atrial fibrillation Xarelto > FOLLOWS DR. DILL > NO PACER> last visit 2019 Asthma History of diverticulitis History of bowel resection TIA (transient ischemic attack) (Acute) H/O sinus surgery (Acute 02/28/13) IBS (irritable bowel syndrome) (Acute 02/28/13) Diverticulosis (Acute) Diverticulitis of colon (Acute) Chronic sinusitis (Acute) Allergic rhinitis due to pollen (Acute) Allergic rhinitis due to dust (Acute) Allergic rhinitis due to cats (Acute) Abnormal CT of the abdomen recent CT with mild duodenal wall thickening, mild splenomegaly after COVID Lumbar radiculopathy CARROLL (obstructive sleep apnea) CPAP Medical History History of anesthesia reaction states hard for him to come out of it History of COVID-19 11/24/20- congestion, cough, fatigue, abdominal pain, elevated LFTs; still with abdominal pain 12/2021 cough and sinus infection, no hospitalization, no current issues Chronic back pain On anticoagulant therapy xarelto Osteoarthritis PFO (patent foramen ovale) no issues per pt LETICIA approx 2 yrs ago Transient ischemic attack (TIA) JANUARY 2019 /Apr 2020 (NO CURRENT PROBLEMS or RESIDUAL EFFECTS) History of diverticulitis IBS (irritable bowel syndrome) Environmental allergies Surgical History S/P epidural steroid injection History of esophagogastroduodenoscopy (EGD) History of colonoscopy History of discectomy LUMBAR x2 History of colostomy reversal History of cholecystectomy History of bowel resection WITH COLOSTOMY/REVERSAL 2015 History of tooth extraction History of endoscopic sinus surgery Strabismus REPAIRED Family History Brother Family history of diabetes mellitus Father , Age 70 Kidney disease Leukemia Mother , Age 78 COPD (chronic obstructive pulmonary disease) Lung cancer Stroke Other TIA (transient ischemic attack) Social History Smoking Status: Never smoker Second Hand Exposure: No; Do You Dip or Chew Tobacco: No; Hx Alcohol Use: No Hx Substance Use: No Preferred Language: Jamaican Communication Ability: Effective Student Finance Advisor Required: No Beliefs That Will Affect Care: None marital status: Current Living Situation: Spouse Feels Safe at Home: Yes Assistive Devices: Walker Physical Exam Physical Exam: General: NAD, VS: BP 137/94; P68; R16; T36.6 Resp: normal respiratory effort, lungs clear to auscultation CV: RRR, no murmur Abd: hypoactive BS, tenderness to epigastric region. firm Extremities: no edema Neuro: A&O x3, sensation intact Skin: intact, no lesions noted Results & Data Results & Data Vital Signs (Past 12 Hours) Vital Signs Temp Pulse Pulse Resp BP BP Pulse Ox 06/21/25 09:00 68 16 137/94 97 06/21/25 08:09 68 06/21/25 07:32 68 16 92 06/21/25 07:02 16 06/21/25 07:02 36.6 C 81 18 131/85 96 O2 Del Method 06/21/25 09:00 Room Air 06/21/25 08:09 06/21/25 07:32 Room Air 06/21/25 07:02 06/21/25 07:02 PG Care Time/CCT Total # of Minutes Spent Total Time Spent with Patient: Total time spent is greater than 50% in coordination of care (as documented) at patient's floor/unit and/or counseling patient: Coding Level of Care Code 02005 INT INP/OBS CARE 3/75MIN Diagnoses SBO (small bowel obstruction) K56.609 Abdominal pain R10.9 Atrial fibrillation I48.91 CARROLL (obstructive sleep apnea) G47.33
[2025-06-21] MEDS: LACTATED RINGER'S 1,000 ML IV SCH (09:51)
[2025-06-21] MEDS: MoRPHine SULFATE 2 MG/ML CARP IV PRN (13:15)
[2025-06-21] MEDS: FLUTICASONE/VILANTEROL 100/25MCG 14 PUFFS/INHALER INH SCH (13:20)
[2025-06-21] MEDS: ONDANSETRON INJ 2 MG/ML 2 ML VIAL IV PRN (17:51)
--- NOTE | 2025-06-21 18:11 | Electrocardiogram Report ---
Test Reason : Blood Pressure : */* mmHG Vent. Rate : 72 BPM Atrial Rate : 72 BPM P-R Int : 162 ms QRS Dur : 92 ms QT Int : 394 ms P-R-T Axes : 68 -8 50 degrees QTcB Int : 431 ms Normal sinus rhythm Normal ECG When compared with ECG of 08-Dec-2020 19:36, No significant change was found Confirmed by Andrea Hudson ([id number]) on 06/21/2025 6:10:58 PM Referred By: REFERRED SELF Confirmed By: Andrea Hudson
[2025-06-21 18:16] VITALS: RESP 16
[2025-06-21 23:05] VITALS: TEMP 97.9
[2025-06-22 07:35] LABS: Hematocrit (blood only) 44.0 % (42.0-52.0); Hemoglobin 14.7 g/dl (14.0-18.0); Mean Corpuscular Hemoglobin 30.8 pg (25.0-34.0); Mean Corpuscular Volume 92.2 fL (80.0-100.0); Platelet Count 155 K/uL (130-400); RDW Standard Deviation 44.6 fL (36.4-46.3); Red Blood Count 4.77 M/uL (4.70-6.10); White Blood Count 5.42 K/ul (4.8-10.8)
[2025-06-22 07:52] LABS: Anion Gap 5.0 (3-11); Blood Urea Nitrogen 14.0 mg/dl (6-23); Calcium 8.7 mg/dl (8.6-10.3); Carbon Dioxide 28.0 mmol/L (21-32); Chloride 105.0 mmol/L (98-107); Creatinine Clr Calc Pharmacy 112.2 ml/min; Glucose 97.0 mg/dl (70-99(Fasting)); Potassium 4.0 mmol/L (3.5-5.1); Sodium 138.0 mmol/L (136-145)
[2025-06-22 07:55] VITALS: BP 144/87; PULSE 75; O2SAT 95
--- NOTE | 2025-06-22 08:19 | Surgery Progress Note ---
Date of Service June 22, 2025 Assessment & Plan (1) SBO (small bowel obstruction): Plan: resolving begin clears advance diet as tolerates discharge once taking po well Admission and Anticipated Discharge Date Admission Date: June 21, 2025 Subjective passing flatus and BMs pain resolved Review of Systems Constitutional: no fever and no chills Respiratory: no dyspnea Cardiovascular: no chest pain Gastrointestinal: no abdominal pain, no nausea and no vomiting Neurologic: no localized weakness Psychiatric: no behavioral changes Physical Exam Constitutional: WD/WN, vitals as above Respiratory: normal respiratory effort Cardiovascular: Rate/Rhythm: regular rate and regular rhythm Gastrointestinal (Abdomen): Inspection/Auscultation: abdomen normal to inspection and normal bowel sounds; abdomen not distended Percussion/Palpation: abdomen soft; abdomen nontender Skin: no rashes, warm and dry Results & Data Vital Signs (Past 12 Hours) Vital Signs Temp Pulse Resp BP Pulse Ox O2 Del Method 06/22/25 07:13 36.6 C 75 16 144/87 H 95 Room Air 06/21/25 23:04 36.6 C 81 16 161/87 H 94 Room Air
[2025-06-22] MEDS: PANTOprazole 40 MG/10 ML SYR IV SCH (08:34)
--- NOTE | 2025-06-22 10:59 | XRay Report ---
KUB HISTORY: SBO COMPARISON STUDY: CT scan yesterday. FINDINGS: There is persistent small bowel distention measuring up to 5 cm at the left upper quadrant. No colonic distention seen. There is moderate retained stool. Impression: Stable to mildly increased small bowel distention. ACT 112: Negative or not required by law. The above report was generated using voice recognition software. It may contain grammatical, syntax o r spelling errors. Electronically signed by: Clarke Jackson M.D. 06/22/2025 10:57 AM
--- NOTE | 2025-06-22 12:57 | Discharge Summary ---
Discharge Summary Date of Service June 22, 2025 Principal Dx & Hospital Course #1 = Principal Diagnosis (1) SBO (small bowel obstruction): (2) Abdominal pain: (3) Atrial fibrillation: (4) CARROLL (obstructive sleep apnea): Plan This is a 64 year old gentleman with past medical history of A fib, TIA, Asthma, bowel resection secondary to perforation from diverticulitis who presented to the ED on 06/21/2025 for abdominal pain #Abdominal pain w/ hx of diverticulitis w/ perforation followed by bowel resection in 2016. CBC stable, BMP stable. LFTs WNL; Trop negative; Lipase normal. UA negative. CXR negative CTAP: lg/sm bowel air fluid levels noted along w/ dilated SB loops w/ transitioned narrowing within LLQ suggestive of developing obstruction secondary to adhesions. Trace Ascites w/ mild reactive interloop edema. Mild splenomegaly. Indeterminate .1.7cm lesion of upper pole left kidney (needs US on outpatient basis) KUB 06/22 - stable SB distention. Gen surg consulted & following --> SBO resolved, can be sent home when tolerating PO intake. s/p IVF Tolerating low fiber diet --> continue on dc. Rec to add stool softener or Miralax every other day given findings of constipation on KUB #A fib Follows w/ cardiology. On Xarelto #Asthma - continue home inhalers #CARROLL - CPAP HS #Neuropathy - Gabapentin #GERD - Pantoprazole #BPH - Vibegron Patient discharged home 06/22 Notes For Next Care Provider recommend follow up US for the left kidney cyst. Admission HPI Per Admitting Provider This is a 64 year old gentleman with past medical history of A fib, TIA, Asthma, bowel resection secondary to perforation from diverticulitis who presented to the ED on 06/21/2025 for abdominal pain. Kuldeep was seen & examined this morning. He reports he typically moves his bowels anywhere from 2-4 times per day. States that he felt a bit constipated over the weekend which is when his abdominal pain began. States it escalated last night and was severe in nature this morning which is what prompted him to come to the hospital. He states that he did have a BM this morning that was loose but that is typical for him. Denied any melena or hematochezia. States the morphine has helped his pain. States he does feel nauseous when the pain is severe but denies any vomiting. He states that he does get SOB when pain is severe but subsides when pain is managed. Denies any CP. Follows w/ urology on ongoing urinary issues but states no acute complaints. Denies any lower extremity edema. While in the ED he had a stable CBC and BMP. His CXR was normal. His CT did reveal lg & sm bowel air fluid levels noted along w/ dilated SB loops w/ transitioned narrowing within LLQ suggestive of developing obstruction secondary to adhesions. Trace ascites w/ mild reactive interloop edema. Mild splenomegaly. s/p choley. Indeterminate 1.7cm lesion of upper pole left kidney, possible complex cyst. General surgery was consulted & are currently recommending conservative management. Code discussion did take place with the patient & he does confirm that he is a full code. Discharge Exam General: NAD, VS: BP 144/87; P75; R16; T36.6C Resp: normal respiratory effort Abd: soft, nontender, + BS Extremities:no edema Neuro: A&O x3 Skin: intact, no lesions noted Discharge Plan Discharge Items Patient Disposition: Home - Self-Care Reason For Visit: ABDOMINAL PAIN Discharge Diagnosis: Abdominal pain, Partial SBO Condition on Discharge: Fair Activity: Resume your previous activity Non-emergency contact: Primary Care Provider Call non-emergency contact if: you have any medication questions, your symptoms worsen and your pain is not controlled Follow-up/Referrals: Curtis Morales MD [Physician] - Alyssa Benavides DO [Primary Care Provider] - Diet: Low Fiber Addtl Attending Provider Instructions: Mr. Benítez, You were recently hospitalized for abdominal pain. You had imaging done that did appear consistent with a concern for a bowel obstruction. However, you have improved prior to discharge. Medications: Your medication list has been reviewed and reconciled upon discharge to ensure accuracy and continuity of care. An updated list of all your medications is included with your hospital discharge paperwork. Please review this list closely, and make note of any changes. Your X-ray done today, 06/22 did reveal moderate stool in your colon. Even though you do move your bowels multiple times a day, I would add Miralax every other day OR a daliy stool softener to your daily medication regimen to ensure you do not become constipated again. Take your medications as instructed; do not skip a dose of your medicines. Make sure all of your doctors know every medicine you are taking (including difw-lbd-tngitie medicines, vitamins, and supplements). Call your primary care provider before taking any new medicines (including over- the-counter medicines, vitamins, and supplements), because some of these may interact with your current medications, or may make your symptoms worse. Tell your primary care provider if you cannot afford your medications. Activity: You can do normal everyday activities as your body allows. Take rest breaks if you feel tired. Do not overexert. Stop activity if you have pain, shortness of breath or feel dizzy. Follow-up appointments: Make an appointment with your primary care physician within one week of discharge. A copy of this summary will be sent to them. Every time you see your primary care physician, or any other doctor, bring your medication list, and a list of questions. At your follow up with your PCP, please discuss getting a repeat colonoscopy as you were unsure of how long it has been since your last one on admission. The General surgery's office phone number is above if you should have questions or concerns. CONTACT YOUR PRIMARY CARE PROVIDER if you experience any of the following: Shortness of breath or difficulty breathing Fevers or chills Feeling tired with normal activity or experiencing dizziness or fainting Difficulty following your treatment plan, or difficulty taking medications CALL 911 OR GO TO THE EMERGENCY DEPARTMENT if you experience any of the following: Severe abdominal pain or nausea/vomiting Severe chest pain, or chest pain that radiates (moves) to your jaw or arm Sudden, severe shortness of breath or difficulty breathing Thank you for allowing us to participate in your care. Pending Studies at Discharge: No Stand-Alone Forms: [facility], Smoking Cessation Medications and DC Order Prescriptions: Continued Symbicort 80-4.5 mcg/actuation HFA aerosol inhaler 1 puff INH Q12H Qty: 3 3RF Xarelto 20 mg tablet 20 mg PO PM Qty: 90 3RF Rx Instructions: must administer with evening meal triamcinolone acetonide 0.1 % cream 1 applic topical DAILY Rx Instructions: on legs for eczema ketoconazole 2 % cream 1 applic topical BID Rx Instructions: for feet scaling and fungus cetirizine 10 mg tablet 10 mg PO QPM Qty: 90 cholecalciferol (vitamin D3) 25 mcg (1,000 unit) capsule 2,000 unit PO QAM gabapentin 100 mg capsule 100 mg PO TID Rx Instructions: TOTAL DOSE 900 MG--TAKES WITH 800 MG TAB. tadalafil 10 mg tablet 10 mg PO DAILY PRN (Reason: sexual activity) Qty: 30 1RF Rx Instructions: administer approximately 30min before sexual activity; do not use more than 1 dose per 24hrs Gemtesa 75 mg tablet 75 mg PO DAILY Qty: 30 11RF calcium carbonate-vitamin D3 [Calcium 500 + D] 500 mg(1,250mg) -200 unit Tablet 1 tab PO BID albuterol sulfate 90 mcg/actuation HFA aerosol inhaler 2 puff inhalation QID PRN (Reason: Wheezing) methocarbamol 500 mg tablet 500 mg PO TID gabapentin 800 mg tablet 800 mg PO TID Rx Instructions: TOTAL DOSE 900 MG--TAKES WITH 100 MG CAP. acetaminophen [Tylenol Extra Strength] 500 mg tablet 1,000 mg PO TID pantoprazole [Protonix] 40 mg tablet,delayed release (DR/EC) 40 mg PO QAM tramadol 50 mg tablet 50 mg PO BID Rx Instructions: PER PT "up to 4 times a day". hydrocortisone 2.5 % Cream 1 applic TOPICAL BID PRN (Reason: Rash) No Action (DME) CPAP Supplies Misc See Rx Instructions .ROUTE .MEDSUPPLY Qty: 1 0RF Rx Instructions: CHANGE AUTO CPAP TO MIN 8 MAX 14. CARE PLUS O2 (DME) CPAP Machine Misc See Rx Instructions .ROUTE .MEDSUPPLY Qty: 1 0RF Rx Instructions: Auto CPAP 8 to 15 cm of water. Current machine has uncorrectable error message. Heated humidification. Please assist patient for optimal mask fit as leak numbers are high. [employer] [facility] Discharge Orders: Discharge Order (Routine); Ordered 06/22/25 Ordered By: Lisa Leach Admission Data Admit Date/Time: 06/21/25 09:22 Attending Provider: Froy Esteves Admit Provider: Froy Esteves Primary Care Provider: Alyssa Benavides Other Providers: Froy Esteves; Curtis Morales Other Interventions: Discharge Summary Assessment (RN) Last Done: 06/22/25 13:08 Hospital Stay Data Consultations 06/21/25 08:52 ED Decision to Admit Stat 06/21/25 09:04 Consult General Surgery Routine Diagnostic Imagining Performed 06/21/25 07:12 CT abd pelvis IV con only Stat Pending Results Patient Have Any Pending Studies at Discharge: No Discharge Instructions Given to Patient (Per Discharging Provider) Mr. Benítez, You were recently hospitalized for abdominal pain. You had imaging done that did appear consistent with a concern for a bowel obstruction. However, you have improved prior to discharge. Medications: Your medication list has been reviewed and reconciled upon discharge to ensure accuracy and continuity of care. An updated list of all your medications is included with your hospital discharge paperwork. Please review this list closely, and make note of any changes. Your X-ray done today, 06/22 did reveal moderate stool in your colon. Even though you do move your bowels multiple times a day, I would add Miralax every other day OR a daliy stool softener to your daily medication regimen to ensure you do not become constipated again. Take your medications as instructed; do not skip a dose of your medicines. Make sure all of your doctors know every medicine you are taking (including ynlg-vsa-cdbaiyo medicines, vitamins, and supplements). Call your primary care provider before taking any new medicines (including over- the-counter medicines, vitamins, and supplements), because some of these may interact with your current medications, or may make your symptoms worse. Tell your primary care provider if you cannot afford your medications. Activity: You can do normal everyday activities as your body allows. Take rest breaks if you feel tired. Do not overexert. Stop activity if you have pain, shortness of breath or feel dizzy. Follow-up appointments: Make an appointment with your primary care physician within one week of discharge. A copy of this summary will be sent to them. Every time you see your primary care physician, or any other doctor, bring your medication list, and a list of questions. At your follow up with your PCP, please discuss getting a repeat colonoscopy as you were unsure of how long it has been since your last one on admission. The General surgery's office phone number is above if you should have questions or concerns. CONTACT YOUR PRIMARY CARE PROVIDER if you experience any of the following: Shortness of breath or difficulty breathing Fevers or chills Feeling tired with normal activity or experiencing dizziness or fainting Difficulty following your treatment plan, or difficulty taking medications CALL 911 OR GO TO THE EMERGENCY DEPARTMENT if you experience any of the following: Severe abdominal pain or nausea/vomiting Severe chest pain, or chest pain that radiates (moves) to your jaw or arm Sudden, severe shortness of breath or difficulty breathing Thank you for allowing us to participate in your care. Supervising Physician Co-Signing Physician Notes During face to face encounter, I obtained a brief physical examination, discussed hospital stay with patient and discharge instructions with patient. I discussed discharge plan of care with TRISH Leach. I reviewed above note and agree with it except for the following: Patient admitted for SBO. This resolved and patient is now having bowel movements. Pain resolved. Follwup as above. Total Time Total Time Spent Total Time Spent (In Minutes): 45 Total Time Includes: Examination of the Patient, Discharge Planning and Medication Reconciliation Coding Level of Care Code 64636 INP/OBS DISCH >30 MIN Diagnoses SBO (small bowel obstruction) K56.609 Abdominal pain R10.9 Atrial fibrillation I48.91 CARROLL (obstructive sleep apnea) G47.33
== END 2025-06-22 13:42 | disposition home or self-care (01) ==
LOC: SUATTDRO → EDINP 07:01 → ED 07:01 → 3N 17:23
DX: K56.609 Unspecified intestinal obstruction, unspecified as to partial versus complete obstruction; Z90.49 Acquired absence of other specified parts of digestive tract; Z86.73 Personal history of transient ischemic attack (TIA), and cerebral infarction without residual deficits; Z88.5 Allergy status to narcotic agent; Z91.048 Other nonmedicinal substance allergy status; K21.9 Gastro-esophageal reflux disease without esophagitis; J45.909 Unspecified asthma, uncomplicated; Z79.01 Long term (current) use of anticoagulants; Z88.1 Allergy status to other antibiotic agents; I48.91 Unspecified atrial fibrillation; Z93.3 Colostomy status; G47.33 Obstructive sleep apnea (adult) (pediatric)